=== PATIENT | female | born 1995 | race Caucasian/White ===

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

== ENCOUNTER 2017-03-23 21:36 | Emergency (ER) | payer OTHER ==
[2017-03-23] MEDS ORDERED: SODIUM CHLORIDE 0.9% 1,000 ML IV ONE (23:09)
[2017-03-23] MEDS ORDERED: ACETAMINOPHEN TAB 500 MG TAB PO STA (23:09)
[2017-03-23 23:30] LABS: Appearance,Urine Clear (Clear); Bilirubin,Urine Negative (Negative); Glucose,Urine (UA) Negative (Negative); Ketones,Urine Trace (Negative); Leukocyte Esterase,Urine Trace (Negative); Mucus,Urine Rare /hpf; Nitrite,Urine Negative (Negative); Particle Count 3200; Protein,Urine 1+ (Negative); RBC,Urine 1 /hpf (0-5); Specific Gravity,Urine 1.033 (1.001-1.035); Squamous Epithelial Cell,Urine 10 /hpf (0-4); UA Billing (MACRO vs. MICRO) MICRO; WBC,Urine 1 /hpf (0-5)
[2017-03-23 23:45] LABS: Basophils # (A) 0.1 k/uL (0-0.2); Basophils % (A) 1 %; CHCM 33.4; Eosinophils # (A) 0.4 k/uL (0-0.7); Eosinophils % (A) 5 %; HCT 38.4 % (34.0-46.0); HDW 2.37; HGB 12.9 gm/dL (11.4-16.0); Luc % (Auto) 2; Lymphocytes # (A) 2.5 k/uL (1.0-4.8); Lymphocytes % (A) 27 %; MCH 29.1 pg (25.0-35.0); MCHC 33.5 g/dL (31.0-37.0); MCV 87.1 fL (80.0-100.0); Monocytes # (A) 0.6 k/uL (0-1.0); Monocytes % (A) 7 %; Neutrophils # (A) 5.5 k/uL (1.3-7.7); Neutrophils % (A) 59 %; RBC 4.41 m/uL (3.80-5.40); RDW 14.2 % (11.5-15.5); WBC 9.3 k/uL (4.0-11.0); WBC (Perox) 8.46
[2017-03-23 23:52] LABS: HCG,Qualitative Serum Detected
[2017-03-23 23:54] LABS: Anion Gap 10 mmol/L; Blood Urea Nitrogen 9 mg/dL (7-17); Carbon Dioxide 24 mmol/L (22-30); Chloride 105 mmol/L (98-107); Glucose 83 mg/dL (74-99); Non-African American GFR(MDRD) >60 (>60 ml/min/1.73 sqM); Sodium 139 mmol/L (137-145)
--- NOTE | 2017-03-24 00:32 | ED ---
Abdominal Pain HPI - General Chief Complaint: Abdominal Pain Stated Complaint: 9 weeks /Pelvic pressure Source: patient Mode of arrival: ambulatory Limitations: no limitations - History of Present Illness Initial Comments: Patient is a 21 year old female presents for evaluation for lower abdominal pain. Past medical history as below. Patient states that she is roughly 79 weeks . Has been having sharp intermittent lower pelvic pain over the last day. Nothing makes it better or worse. No pain or burning with urination. Denies any vaginal bleeding or vaginal discharge. She is taken 7+ test at home all of which have been positive. Normal bowel movements. No blood in the urine or the stool. Denies any nausea or vomiting. Good appetite. This is an unplanned . She states that she's been wearing protection with intercourse. This is her fifth . She's had 3 miscarriages. One full-term child. Otherwise denies fever, chills, headache, changes of vision, URI symptoms, shortness breath, cough, chest pain. - Related Data Previous Rx's Medication Instructions Recorded Lvn-Hkan-Cmdku Acid 1 cap PO DAILY #90 cap 03/24/17 [-U Capsule (formulary)] Allergies Allergy/AdvReac Type Severity Reaction Status Date / Time azithromycin [From Zithromax] Allergy Swelling Verified 03/23/17 23:46 Bleach (Sodium Hypochlorite) Allergy Unknown Verified 03/23/17 23:46 cephalexin [From Keflex] Allergy Swelling Verified 03/23/17 23:46 fluconazole Allergy Swelling Verified 03/23/17 23:46 latex Allergy Rash/Hives Verified 03/23/17 23:46 nystatin Allergy Swelling Verified 03/23/17 23:46 Penicillins Allergy Swelling Verified 03/23/17 23:46 Review of Systems ROS Statement: Those systems with pertinent positive or pertinent negative responses have been documented in the HPI. ROS Other: All systems not noted in ROS Statement are negative. Past Medical History Past Medical History: Seizure Disorder Additional Past Medical History / Comment(s): SYNCOPE- LOW BLOOD PRESSURE, EPILEPSY History of Any Multi-Drug Resistant Organisms: None Reported Past Surgical History: Section Past Psychological History: No Psychological Hx Reported Smoking Status: Current some day smoker Past Alcohol Use History: Occasional Past Drug Use History: None Reported General Exam Limitations: no limitations General appearance: alert, in no apparent distress, other (No acute distress. Resting comfortably in the stretcher.) Head exam: Present: atraumatic, normocephalic, normal inspection Eye exam: Present: normal appearance, PERRL, EOMI. Absent: scleral icterus, conjunctival injection, periorbital swelling ENT exam: Present: normal exam, mucous membranes moist Neck exam: Present: normal inspection. Absent: tenderness, meningismus, lymphadenopathy Respiratory exam: Present: normal lung sounds bilaterally. Absent: respiratory distress, wheezes, rales, rhonchi, stridor Cardiovascular Exam: Present: regular rate, normal rhythm, normal heart sounds. Absent: systolic murmur, diastolic murmur, rubs, gallop, clicks GI/Abdominal exam: Present: soft, normal bowel sounds, other (Abdomen is soft and nontender. No peritoneal signs. No pain elicited with examination at all. Negative Campbell sign. Negative McBurney sign. No suprapubic tenderness.). Absent: distended, tenderness, guarding, rebound, rigid Extremities exam: Present: normal inspection, full ROM, normal capillary refill. Absent: tenderness, pedal edema, joint swelling, calf tenderness Back exam: Present: normal inspection Neurological exam: Present: alert, oriented X3, CN II-XII intact Psychiatric exam: Present: normal affect, normal mood Skin exam: Present: warm, dry, intact, normal color. Absent: rash Course Vital Signs 03/23/17 03/23/17 03/24/17 22:17 23:36 00:43 Temperature 98.1 F 98.2 F Pulse Rate 82 62 68 Respiratory 18 18 20 Rate Blood Pressure 130/63 137/58 132/66 O2 Sat by Pulse 97 98 99 Oximetry 03/24/17 01:29 Temperature Pulse Rate 67 Respiratory 18 Rate Blood Pressure 124/68 O2 Sat by Pulse 98 Oximetry Medical Decision Making - Medical Decision Making Patient is a 21-year-old presenting with lower pelvic pain. Positive test at home. We'll order basic labs with a beta hCG, pelvic ultrasound, IV fluids, Tylenol. 0045: Reevaluated the patient. Resting comfortably in stretcher. Pain improved after Tylenol. Patient was told by the environmental services technician that she is roughly 5 weeks . No other acute abnormalities. Awaiting for official read by radiology. Also waiting beta-hCG. No bacteria in the urine. 0115: Reviewed ultrasound. 5 week IUP identified. Awaiting for beta-hCG. 0135: HCG appropriate for dates. Discussed all the results with the patient. Tylenol as needed for pain. Plenty of fluids. We'll prescribe vitamins. Encourage close follow-up with her SENIOR ADMINISTRATIVE ASSISTANT. We'll provide ours in the event that she can follow-up in a timely fashion. Will need repeat hCG and bedside ultrasound in next couple of days. No alcohol/smoking/drug use. Discussed signs and symptoms on when to return to emergency department for further evaluation. Comfortable with discharge home and will follow-up. - Lab Data Result diagrams: 03/23/17 23:31 03/23/17 23:31 Lab Results 03/23/17 03/23/17 03/23/17 Range/Units 23:10 23:31 23:31 WBC (4.0-11.0) k/uL RBC (3.80-5.40) m/uL Hgb (11.4-16.0) gm/dL Hct (34.0-46.0) % MCV (80.0-100.0) fL MCH (25.0-35.0) pg MCHC (31.0-37.0) g/dL RDW (11.5-15.5) % Plt Count (150-450) k/uL Neutrophils % % Lymphocytes % % Monocytes % % Eosinophils % % Basophils % % Neutrophils # (1.3-7.7) k/uL Lymphocytes # (1.0-4.8) k/uL Monocytes # (0-1.0) k/uL Eosinophils # (0-0.7) k/uL Basophils # (0-0.2) k/uL Sodium 139 (137-145) mmol/L Potassium 4.0 (3.5-5.1) mmol/L Chloride 105 (98-107) mmol/L Carbon Dioxide 24 (22-30) mmol/L Anion Gap 10 mmol/L BUN 9 (7-17) mg/dL Creatinine 0.60 (0.52-1.04) mg/dL Est GFR (MDRD) Af Amer >60 (>60 ml/min/1.73 sqM) Est GFR (MDRD) Non-Af >60 (>60 ml/min/1.73 sqM) Glucose 83 (74-99) mg/dL Calcium 9.0 (8.4-10.2) mg/dL HCG, Qual Detected HCG, Quant mIU/mL Urine Color Yellow Urine Appearance Clear (Clear) Urine pH 7.0 (5.0-8.0) Ur Specific [place] 1.033 (1.001-1.035) Urine Protein 1+ H (Negative) Urine Glucose (UA) Negative (Negative) Urine Ketones Trace H (Negative) Urine Blood Negative (Negative) Urine Nitrite Negative (Negative) Urine Bilirubin Negative (Negative) Urine Urobilinogen 4.0 (<2.0) mg/dL Ur Leukocyte Esterase Trace H (Negative) Urine RBC 1 (0-5) /hpf Urine WBC 1 (0-5) /hpf Ur Squamous Epith Cells 10 H (0-4) /hpf Urine Mucus Rare H (None) /hpf Blood Type O Positive Blood Type Recheck No Antibody Screen NEGATIVE Spec Expiration Date 03/26/2017 - 233003/23/17 03/23/17 Range/Units 23:31 23:31 WBC 9.3 (4.0-11.0) k/uL RBC 4.41 (3.80-5.40) m/uL Hgb 12.9 (11.4-16.0) gm/dL Hct 38.4 (34.0-46.0) % MCV 87.1 (80.0-100.0) fL MCH 29.1 (25.0-35.0) pg MCHC 33.5 (31.0-37.0) g/dL RDW 14.2 (11.5-15.5) % Plt Count 278 (150-450) k/uL Neutrophils % 59 % Lymphocytes % 27 % Monocytes % 7 % Eosinophils % 5 % Basophils % 1 % Neutrophils # 5.5 (1.3-7.7) k/uL Lymphocytes # 2.5 (1.0-4.8) k/uL Monocytes # 0.6 (0-1.0) k/uL Eosinophils # 0.4 (0-0.7) k/uL Basophils # 0.1 (0-0.2) k/uL Sodium (137-145) mmol/L Potassium (3.5-5.1) mmol/L Chloride (98-107) mmol/L Carbon Dioxide (22-30) mmol/L Anion Gap mmol/L BUN (7-17) mg/dL Creatinine (0.52-1.04) mg/dL Est GFR (MDRD) Af Amer (>60 ml/min/1.73 sqM) Est GFR (MDRD) Non-Af (>60 ml/min/1.73 sqM) Glucose (74-99) mg/dL Calcium (8.4-10.2) mg/dL HCG, Qual HCG, Quant 55659.7 mIU/mL Urine Color Urine Appearance (Clear) Urine pH (5.0-8.0) Ur Specific [place] (1.001-1.035) Urine Protein (Negative) Urine Glucose (UA) (Negative) Urine Ketones (Negative) Urine Blood (Negative) Urine Nitrite (Negative) Urine Bilirubin (Negative) Urine Urobilinogen (<2.0) mg/dL Ur Leukocyte Esterase (Negative) Urine RBC (0-5) /hpf Urine WBC (0-5) /hpf Ur Squamous Epith Cells (0-4) /hpf Urine Mucus (None) /hpf Blood Type Blood Type Recheck Antibody Screen Spec Expiration Date Disposition Clinical Impression: Disposition: HOME SELF-CARE Condition: Good Instructions: (ED) Prescriptions: Noj-Mxlo-Qsqbd Acid [-U Capsule (formulary)] 1 cap PO DAILY # 90 cap Referrals: Les Bartholomew MD [Primary Care Provider] - 1-2 days Brittnee Partida DO [Doctor of Osteopathic Medicine] - 1-2 days
[2017-03-24 00:43] VITALS: TEMP 98.2
--- NOTE | 2017-03-24 01:12 | US ---
Ultrasound Pelvic/OB INDICATION: pain COMPARISON: none TECHNIQUE: Real-time sonographic evaluation of the female pelvis obtained using grayscale and color flow. FINDINGS: On transabdominal imaging, the uterus measures 8.3 x 5.4 x 6.7 cm. A gestational sac is identified at the fundus. A yolk sac is identified. There is a 1.5 cm hypoechoic focus adjacent to the gestational sac. Suspected pole crown-rump length measures 0.24 cm corresponding to estimated gestational age by this ultrasound of 5 weeks, 5 days. heart rate measures approximately 93 beats per minute. The cervix appears closed. The right ovary measures 3 x 1.8 x 2 cm. Echogenicity in the right ovary measuring approximately 1.5 cm likely represents a corpus luteum. The left ovary measures 2.1 x 1.3 x 2 cm. The ovaries demonstrate normal grayscale and color flow. No free fluid is identified. IMPRESSION: 1. Intrauterine gestation sac with yolk sac identified estimated to be approximately 5 weeks 5 days by ultrasound. heart rate measures approximately 93 beats per minute. Due to the small size of the pole, there are some limitations in the imaging and a short-term imaging followup is recommended. 2. There is a 1.5 cm hypoechoic focus adjacent to the gestational sac which may be a subchorionic bleed..
[2017-03-24 01:31] VITALS: BP 124/68; PULSE 67; RESP 18
== END 2017-03-24 01:46 | disposition home or self-care (01) ==
LOC: EC 21:36
DX: O26.891 Other specified pregnancy related conditions, first trimester (principal); O99.331 Smoking (tobacco) complicating pregnancy, first trimester; R10.2 Pelvic and perineal pain; F17.200 Nicotine dependence, unspecified, uncomplicated; Z3A.01 Less than 8 weeks gestation of pregnancy; Z88.0 Allergy status to penicillin; Z91.040 Latex allergy status; Z88.1 Allergy status to other antibiotic agents; Z88.8 Allergy status to other drugs, medicaments and biological substances
CPT/HCPCS: 36415; 76801; 76817; 80048; 81001; 84702; 84703; 85025; 86850; 86900; 86901; 99284

== ENCOUNTER 2017-06-14 21:50 | Emergency (ER) | payer OTHER ==
[2017-06-14] MEDS ORDERED: levETIRAcetam 500 MG TAB PO STA (22:13)
--- NOTE | 2017-06-14 22:15 | ED ---
General Adult HPI - General Chief complaint: Seizure Stated complaint: syncope/17 wks preg Time Seen by Provider: 06/14/17 21:55 Source: patient, RN notes reviewed Mode of arrival: ambulatory Limitations: no limitations - History of Present Illness Initial comments: This is a 22-year-old female presents emergency department 17 weeks . Patient states she has a history of seizures. Patient states she's normally on Keppra but for 1 month she has not been taking her Keppra because she has not gotten a refill from her neurologist because they have discontinued seeing her. Patient states she continues to drive to work even though she knows she shouldn't be. Patient states that she's been getting an aura today and is concerned that she might have a seizure. Patient states she does not believe she has yet to have a seizure. Patient states she's had a headache for about a month. Patient states is no numbness or weakness. Patient denies any chest pain difficulty breathing or shortness of breath per patient denies any abdominal pain patient denies any vaginal discharge or bleeding. Patient denies any nausea vomiting diarrhea. - Related Data Previous Rx's Medication Instructions Recorded Lfv-Pnsv-Vwkyp Acid 1 cap PO DAILY #90 cap 03/24/17 [-U Capsule (formulary)] levETIRAcetam [Keppra] 1,000 mg PO Q12HR #14 tab 06/14/17 Allergies Allergy/AdvReac Type Severity Reaction Status Date / Time azithromycin [From Zithromax] Allergy Swelling Verified 06/14/17 22:17 Bleach (Sodium Hypochlorite) Allergy Unknown Verified 06/14/17 22:17 cephalexin [From Keflex] Allergy Swelling Verified 06/14/17 22:17 fluconazole Allergy Swelling Verified 06/14/17 22:17 latex Allergy Rash/Hives Verified 06/14/17 22:17 nystatin Allergy Swelling Verified 06/14/17 22:17 Penicillins Allergy Swelling Verified 06/14/17 22:17 Review of Systems ROS Statement: Those systems with pertinent positive or pertinent negative responses have been documented in the HPI. ROS Other: All systems not noted in ROS Statement are negative. Past Medical History Past Medical History: Seizure Disorder Additional Past Medical History / Comment(s): SYNCOPE- LOW BLOOD PRESSURE, EPILEPSY History of Any Multi-Drug Resistant Organisms: None Reported Past Surgical History: Section Past Psychological History: No Psychological Hx Reported Smoking Status: Former smoker Past Alcohol Use History: Occasional Past Drug Use History: None Reported General Exam - General Exam Comments Initial Comments: GENERAL: Patient is well-developed and well-nourished. Patient is nontoxic and well- hydrated and is in no acute distress. ENT: Neck is soft and supple. No significant lymphadenopathy is noted. Oropharynx is clear. Moist mucous membranes. Neck has full range of motion without eliciting any pain. EYES: The sclera were anicteric and conjunctiva were pink and moist. Extraocular movements were intact and pupils were equal round and reactive to light. Eyelids were unremarkable. PULMONARY: Unlabored respirations. Good breath sounds bilaterally. No audible rales rhonchi or wheezing was noted. CARDIOVASCULAR: There is a regular rate and rhythm without any murmurs gallops or rubs. ABDOMEN: Soft and nontender with normal bowel sounds. No palpable organomegaly was noted. There is no palpable pulsatile mass. SKIN: Skin is clear with no lesions or rashes and otherwise unremarkable. NEUROLOGIC: Patient is alert and oriented x3. Cranial nerves II through XII are grossly intact. Motor and sensory are also intact. Normal speech, volume and content. Symmetrical smile. MUSCULOSKELETAL: Normal extremities with adequate strength and full range of motion. No lower extremity swelling or edema. No calf tenderness. LYMPHATICS: No significant lymphadenopathy is noted PSYCHIATRIC: Normal psychiatric evaluation. Limitations: no limitations Course Vital Signs 06/14/17 21:53 Temperature 98.9 F Pulse Rate 78 Respiratory 20 Rate Blood Pressure 141/68 O2 Sat by Pulse 98 Oximetry Medical Decision Making - Medical Decision Making I spoke with Dr. Bartholomew and he wanted me to give the patient a prescription for Keppra for one week so that she has time to follow-up with him. Patient was given Keppra in the emergency department. - Lab Data Result diagrams: 06/14/17 22:22 06/14/17 22:22 Lab Results 06/14/17 06/14/17 06/14/17 Range/Units 22:22 22:22 22:41 WBC 9.6 (4.0-11.0) k/uL RBC 4.18 (3.80-5.40) m/uL Hgb 12.3 (11.4-16.0) gm/dL Hct 38.0 (34.0-46.0) % MCV 91.0 (80.0-100.0) fL MCH 29.5 (25.0-35.0) pg MCHC 32.4 (31.0-37.0) g/dL RDW 15.0 (11.5-15.5) % Plt Count 243 (150-450) k/uL Neutrophils % 72 % Lymphocytes % 19 % Monocytes % 5 % Eosinophils % 3 % Basophils % 1 % Neutrophils # 6.9 (1.3-7.7) k/uL Lymphocytes # 1.8 (1.0-4.8) k/uL Monocytes # 0.5 (0-1.0) k/uL Eosinophils # 0.3 (0-0.7) k/uL Basophils # 0.0 (0-0.2) k/uL Sodium 135 L (137-145) mmol/L Potassium 3.8 (3.5-5.1) mmol/L Chloride 106 (98-107) mmol/L Carbon Dioxide 19 L (22-30) mmol/L Anion Gap 10 mmol/L BUN 5 L (7-17) mg/dL Creatinine 0.50 L (0.52-1.04) mg/dL Est GFR (MDRD) Af Amer >60 (>60 ml/min/1.73 sqM) Est GFR (MDRD) Non-Af >60 (>60 ml/min/1.73 sqM) Glucose 113 H (74-99) mg/dL Calcium 9.0 (8.4-10.2) mg/dL Total Bilirubin 0.1 L (0.2-1.3) mg/dL AST 13 L (14-36) U/L ALT 22 (9-52) U/L Alkaline Phosphatase 57 (38-126) U/L Total Protein 5.8 L (6.3-8.2) g/dL Albumin 3.2 L (3.5-5.0) g/dL Urine Color Yellow Urine Appearance Turbid H (Clear) Urine pH 6.5 (5.0-8.0) Ur Specific [place] 1.015 (1.001-1.035) Urine Protein Negative (Negative) Urine Glucose (UA) Negative (Negative) Urine Ketones Negative (Negative) Urine Blood Negative (Negative) Urine Nitrite Negative (Negative) Urine Bilirubin Negative (Negative) Urine Urobilinogen <2.0 (<2.0) mg/dL Ur Leukocyte Esterase Trace H (Negative) Ur Squamous Epith Cells 3 (0-4) /hpf Amorphous Sediment Rare H (None) /hpf Urine Mucus Rare H (None) /hpf Disposition Clinical Impression: Auras, Noncompliance with medication regimen Instructions: Recurrent Seizures in Adults (ED) Additional Instructions: Patient is to follow up with Dr. Bartholomew within the week. Prescriptions: levETIRAcetam [Keppra] 1,000 mg PO Q12HR #14 tab Referrals: Les Bartholomew MD [Primary Care Provider] - 1-2 days Time of Disposition: 23:12
[2017-06-14 22:36] LABS: Basophils % (A) 1 %; CH 30.6; CHCM 33.8; Eosinophils # (A) 0.3 k/uL (0-0.7); Eosinophils % (A) 3 %; HDW 2.31; HGB 12.3 gm/dL (11.4-16.0); Luc # (Auto) 0.11; Luc % (Auto) 1; Lymphocytes # (A) 1.8 k/uL (1.0-4.8); Lymphocytes % (A) 19 %; MCH 29.5 pg (25.0-35.0); MCHC 32.4 g/dL (31.0-37.0); Mean Platelet Volume 7.6; Monocytes # (A) 0.5 k/uL (0-1.0); Monocytes % (A) 5 %; Neutrophils # (A) 6.9 k/uL (1.3-7.7); Neutrophils % (A) 72 %; RBC 4.18 m/uL (3.80-5.40); WBC 9.6 k/uL (4.0-11.0); WBC (Perox) 10.35
[2017-06-14 22:48] LABS: ALT 22 U/L (9-52); AST 13 U/L (14-36); Alkaline Phosphatase 57 U/L (38-126); Anion Gap 10 mmol/L; Blood Urea Nitrogen 5 mg/dL (7-17); Carbon Dioxide 19 mmol/L (22-30); Chloride 106 mmol/L (98-107); Glucose 113 mg/dL (74-99); Non-African American GFR(MDRD) >60 (>60 ml/min/1.73 sqM); Potassium 3.8 mmol/L (3.5-5.1); Sodium 135 mmol/L (137-145); Total Bilirubin 0.1 mg/dL (0.2-1.3); Total Protein 5.8 g/dL (6.3-8.2)
[2017-06-14 22:59] LABS: Amorphous Sediment,Urine Rare /hpf; Appearance,Urine Turbid (Clear); Bilirubin,Urine Negative (Negative); Glucose,Urine (UA) Negative (Negative); Ketones,Urine Negative (Negative); Leukocyte Esterase,Urine Trace (Negative); Mucus,Urine Rare /hpf; Nitrite,Urine Negative (Negative); PH, Urine 6.5 (5.0-8.0); Particle Count 17243; Protein,Urine Negative (Negative); Specific Gravity,Urine 1.015 (1.001-1.035); Squamous Epithelial Cell,Urine 3 /hpf (0-4); UA Billing (MACRO vs. MICRO) MICRO; Urobilinogen,Urine <2.0 mg/dL (<2.0)
[2017-06-14 23:27] VITALS: BP 127/61; PULSE 71; RESP 18; TEMP 98.3
== END 2017-06-14 23:28 | disposition home or self-care (01) ==
LOC: EC 21:50
DX: O26.892 Other specified pregnancy related conditions, second trimester (principal); R29.818 Other symptoms and signs involving the nervous system; Z91.14 Patient's other noncompliance with medication regimen; Z86.69 Personal history of other diseases of the nervous system and sense organs; Z87.891 Personal history of nicotine dependence; Z88.1 Allergy status to other antibiotic agents; Z88.0 Allergy status to penicillin; Z88.8 Allergy status to other drugs, medicaments and biological substances; Z91.040 Latex allergy status; Z91.048 Other nonmedicinal substance allergy status; Z3A.17 17 weeks gestation of pregnancy
CPT/HCPCS: 36415; 80053; 80177; 81001; 85025; 99284

== ENCOUNTER 2017-06-15 11:17 | Inpatient (IN) | payer OTHER ==
[2017-06-15] MEDS ORDERED: ACETAMINOPHEN TAB 325 MG TAB PO STA (11:29)
--- NOTE | 2017-06-15 11:35 | ED ---
Seizure HPI - General Stated Complaint: Seizure Time Seen by Provider: 06/15/17 11:18 Source: patient, EMS Mode of arrival: EMS Limitations: no limitations - History of Present Illness Initial Comments: This is a 22-year-old female to history of epilepsy who is supposed to be on Keppra 1000 mg twice a day who presents emergency department for a seizure. The patient was seen her yesterday because she was feeling like she had an aura. She was given a dose of Keppra here and a prescription for Keppra however she did not fill this. She went home. She woke up around 10:30 and was sitting on the couch when all of a sudden she started having a generalized tonic-clonic seizure. The mother did witness the seizure. She called EMS immediately when it started and she stated that she was continuing to have seizure activity when EMS got there over 5 minutes later. She believes that the seizure activity was going on the entire time more than 5 minutes. EMS stated that when they arrived she was postictal and somnolent. During the trip to the hospital patient went back to her neurologic baseline. She is currently a Seaman 4. The patient states that she has been off of her Keppra for almost a month because she does not have Medicaid or insurance to pay for it. She has not seen a neurologist in quite some time because she was discharged from [facility] of neurology and is currently on a waiting list to be seen by another neurologist. She is currently 18 weeks [address] with [address] Nathan out [facility] for [facility]. She states that she does have a history of eclampsia with her previous 2 pregnancies and had to be delivered early. She denies any dysuria or hematuria. No vaginal bleeding or discharge. She admits to some right-sided neck discomfort that she suspects is from the seizure. Also has a generalized headache which is typical for her after the seizures. She denies any cough or shortness of breath. No numbness, tingling, weakness in her extremities. No other complaints. - Related Data Previous Rx's Medication Instructions Recorded Hyr-Sqae-Fzscl Acid 1 cap PO DAILY #90 cap 03/24/17 [-U Capsule (formulary)] levETIRAcetam [Keppra] 1,000 mg PO Q12HR #14 tab 06/14/17 Allergies Allergy/AdvReac Type Severity Reaction Status Date / Time azithromycin [From Zithromax] Allergy Swelling Verified 06/15/17 11:59 Bleach (Sodium Hypochlorite) Allergy Unknown Verified 06/15/17 11:59 cephalexin [From Keflex] Allergy Swelling Verified 06/15/17 11:59 fluconazole Allergy Swelling Verified 06/15/17 11:59 latex Allergy Rash/Hives Verified 06/15/17 11:59 nystatin Allergy Swelling Verified 06/15/17 11:59 Penicillins Allergy Swelling Verified 06/15/17 11:59 Review of Systems ROS Statement: Those systems with pertinent positive or pertinent negative responses have been documented in the HPI. ROS Other: All systems not noted in ROS Statement are negative. Past Medical History Past Medical History: Seizure Disorder Additional Past Medical History / Comment(s): SYNCOPE- LOW BLOOD PRESSURE, EPILEPSY History of Any Multi-Drug Resistant Organisms: None Reported Past Surgical History: Section Past Psychological History: No Psychological Hx Reported Smoking Status: Former smoker Past Alcohol Use History: Occasional Past Drug Use History: None Reported General Exam - General Exam Comments Initial Comments: Constitutional: Awake alert Appears comfortable Head: Normocephalic atraumatic Eyes: no conjunctival injection No scleral icterus EOMI, pupils are 4 mm and reactive bilaterally Neck: No JVD Supple Heart: Regular rate rhythm normal S1-S2 no murmurs Lungs: Clear to auscultation bilaterally No wheezing No rales Abdomen: Soft nondistended nontender Extremities: Non edematous DP pulses intact Radial pulses intact Neuro: A&Ox3 cranial nerves II through XII are grossly intact, 5 out of 5 strength in upper and lower extremities bilaterally, no dysmetria with finger- nose and heel to myers testing No focal neurologic deficits Psych: Appropriate mood and affect Limitations: no limitations Course Vital Signs 06/15/17 06/15/17 11:19 12:40 Temperature 98.7 F Pulse Rate 72 104 H Respiratory 20 18 Rate Blood Pressure 120/61 135/68 O2 Sat by Pulse 100 100 Oximetry - Reevaluation(s) Reevaluation #1: 06/15/17 12:42 EKG showing normal sinus rhythm with a rate of 65. No abnormal ST segment changes or T-wave inversions. QTC is 395. Other intervals normal. No ectopy. Medical Decision Making - Medical Decision Making This is a 22-year-old female to history of seizures who has not been compliant with her Keppra who presents emergency department for a greater than 5 minute seizure. While in the emergency department the patient had an additional 2 seizures. This was after she got 1 g of Keppra. She was given another 2 mg of Ativan and her seizure stopped. Due to the patient multiple seizures today and the one being greater than 5 minutes she is to be evaluated in the hospital for status epilepticus. I spoke with Dr. Bartholomew who accepts the admission. The patient will go to [facility] and have OB and neurology see her. The patient was started on Keppra and will be kept under seizure precautions with neurologic assessment before hours. The patient and family were updated and agree. I did touch base with the patient's [employer], Dr. Nathan, who agreed with management as far. - Lab Data Result diagrams: 06/15/17 12:00 06/15/17 12:00 Lab Results 06/15/17 06/15/17 06/15/17 Range/Units 12:00 12:00 12:09 WBC 7.6 (4.0-11.0) k/uL RBC 4.14 (3.80-5.40) m/uL Hgb 12.4 (11.4-16.0) gm/dL Hct 38.1 (34.0-46.0) % MCV 92.2 (80.0-100.0) fL MCH 30.0 (25.0-35.0) pg MCHC 32.6 (31.0-37.0) g/dL RDW 14.0 (11.5-15.5) % Plt Count 238 (150-450) k/uL Neutrophils % 73 % Lymphocytes % 19 % Monocytes % 4 % Eosinophils % 4 % Basophils % 0 % Neutrophils # 5.5 (1.3-7.7) k/uL Lymphocytes # 1.4 (1.0-4.8) k/uL Monocytes # 0.3 (0-1.0) k/uL Eosinophils # 0.3 (0-0.7) k/uL Basophils # 0.0 (0-0.2) k/uL Sodium 137 (137-145) mmol/L Potassium 4.2 (3.5-5.1) mmol/L Chloride 108 H (98-107) mmol/L Carbon Dioxide 21 L (22-30) mmol/L Anion Gap 8 mmol/L BUN 4 L (7-17) mg/dL Creatinine 0.49 L (0.52-1.04) mg/dL Est GFR (MDRD) Af Amer >60 (>60 ml/min/1.73 sqM) Est GFR (MDRD) Non-Af >60 (>60 ml/min/1.73 sqM) Glucose 90 (74-99) mg/dL Calcium 8.5 (8.4-10.2) mg/dL Magnesium 1.5 L (1.6-2.3) mg/dL Total Bilirubin 0.2 (0.2-1.3) mg/dL AST 10 L (14-36) U/L ALT 13 (9-52) U/L Alkaline Phosphatase 52 (38-126) U/L Total Protein 5.4 L (6.3-8.2) g/dL Albumin 2.8 L (3.5-5.0) g/dL Urine Color Yellow Urine Appearance Cloudy H (Clear) Urine pH 7.5 (5.0-8.0) Ur Specific Dewey 1.014 (1.001-1.035) Urine Protein Negative (Negative) Urine Glucose (UA) Negative (Negative) Urine Ketones Negative (Negative) Urine Blood Negative (Negative) Urine Nitrite Negative (Negative) Urine Bilirubin Negative (Negative) Urine Urobilinogen <2.0 (<2.0) mg/dL Ur Leukocyte Esterase Negative (Negative) Ur Squamous Epith Cells 1 (0-4) /hpf Amorphous Sediment Few H (None) /hpf Urine Mucus Rare H (None) /hpf Salicylates <1.0 mg/dL Urine Opiates Screen Not Detected (NotDetected) Ur Oxycodone Screen Not Detected (NotDetected) Urine Methadone Screen Not Detected (NotDetected) Ur Propoxyphene Screen Not Detected (NotDetected) Acetaminophen <10.0 ug/mL Ur Barbiturates Screen Not Detected (NotDetected) U Tricyclic Antidepress Not Detected (NotDetected) Ur Phencyclidine Scrn Not Detected (NotDetected) Ur Amphetamines Screen Not Detected (NotDetected) U Methamphetamines Scrn Not Detected (NotDetected) U Benzodiazepines Scrn Not Detected (NotDetected) Urine Cocaine Screen Not Detected (NotDetected) U Marijuana (THC) Screen Not Detected (NotDetected) Disposition Clinical Impression: Status epilepticus Disposition: ADMITTED IP TO THIS HOSP Condition: Serious Referrals: Les Bartholomew MD [Primary Care Provider] - 1-2 days
[2017-06-15] MEDS ORDERED: levETIRAcetam IV 1,000 MG in SALINE 1 100ML.BAG IVPB ONE (11:45)
[2017-06-15] MEDS: SODIUM CHLORIDE 0.9% 1,000 ML IV SCH ×2 (11:49→21:56)
[2017-06-15 12:16] LABS: Basophils % (A) 0 %; CH 29.6; CHCM 32.3; Eosinophils # (A) 0.3 k/uL (0-0.7); Eosinophils % (A) 4 %; HCT 38.1 % (34.0-46.0); HDW 2.31; HGB 12.4 gm/dL (11.4-16.0); Luc # (Auto) 0.09; Luc % (Auto) 1; Lymphocytes # (A) 1.4 k/uL (1.0-4.8); Lymphocytes % (A) 19 %; MCHC 32.6 g/dL (31.0-37.0); MCV 92.2 fL (80.0-100.0); Monocytes # (A) 0.3 k/uL (0-1.0); Monocytes % (A) 4 %; Neutrophils # (A) 5.5 k/uL (1.3-7.7); Neutrophils % (A) 73 %; RBC 4.14 m/uL (3.80-5.40); WBC 7.6 k/uL (4.0-11.0); WBC (Perox) 8.01
[2017-06-15 12:29] LABS: ALT 13 U/L (9-52); AST 10 U/L (14-36); Acetaminophen <10.0 ug/mL; Alkaline Phosphatase 52 U/L (38-126); Anion Gap 8 mmol/L; Blood Urea Nitrogen 4 mg/dL (7-17); Calcium 8.5 mg/dL (8.4-10.2); Carbon Dioxide 21 mmol/L (22-30); Chloride 108 mmol/L (98-107); Glucose 90 mg/dL (74-99); Magnesium 1.5 mg/dL (1.6-2.3); Non-African American GFR(MDRD) >60 (>60 ml/min/1.73 sqM); Potassium 4.2 mmol/L (3.5-5.1); Salicylate <1.0 mg/dL; Sodium 137 mmol/L (137-145); Total Bilirubin 0.2 mg/dL (0.2-1.3); Total Protein 5.4 g/dL (6.3-8.2)
[2017-06-15 12:29] LABS: Amorphous Sediment,Urine Few /hpf; Appearance,Urine Cloudy (Clear); Bilirubin,Urine Negative (Negative); Glucose,Urine (UA) Negative (Negative); Ketones,Urine Negative (Negative); Leukocyte Esterase,Urine Negative (Negative); Mucus,Urine Rare /hpf; Nitrite,Urine Negative (Negative); PH, Urine 7.5 (5.0-8.0); Particle Count 11290; Protein,Urine Negative (Negative); Specific Gravity,Urine 1.014 (1.001-1.035); Squamous Epithelial Cell,Urine 1 /hpf (0-4); UA Billing (MACRO vs. MICRO) MICRO; Urobilinogen,Urine <2.0 mg/dL (<2.0)
[2017-06-15] MEDS: LORazepam 2 MG/ML INJ IV STA ×2 (12:38→17:37)
--- NOTE | 2017-06-15 12:52 | XR ---
EXAMINATION TYPE: XR cervical spine limited DATE OF EXAM: 06/15/2017 TECHNIQUE: Frontal and lateral views of the cervical spine are obtained. HISTORY: Pain COMPARISON: None FINDINGS: There is straightening of the usual cervical lordosis. There is retrolisthesis of C5 with respect to C6. No locked or perched facets are seen. Cervical spine is visualized in its entirety fro m C1 thru the top of T1 level, it is satisfactory in alignment without evidence of acute fracture or dislocation. The pre-vertebral soft tissue appears within normal limits. The C1-C2 articulation is within normal limits on the open mouth view. The oblique images are within normal limits. IMPRESSION: 1. No acute fracture or dislocation is seen in the cervical spine. 2. Retrolisthesis of C5 on C6 with no evidence of perched or locked facets. 3. Straightening of the usual cervical lordosis that may relate to muscular spasm or patient position ing.
[2017-06-15] MEDS ORDERED: NALOXONE 0.4 MG/ML 1 ML VIAL IV PRN (13:13)
[2017-06-15] MEDS ORDERED: ACETAMINOPHEN TAB 325 MG TAB PO PRN (13:13)
[2017-06-15] MEDS: MAGNESIUM SULFATE-D5W PMX 1 GM in DEXTROSE/WATER 1 100ML.BAG IVPB SCH ×3 (13:14→18:00)
--- NOTE | 2017-06-15 16:24 | P.OBCN ---
History of Present Illness Consult date: 06/15/17 Requesting physician: Les Bartholomew Chief complaint: Seizures, 18 weeks History of present illness: This is a 22-year-old 4 para 2011 woman who reports being approximately 18 weeks . She has a history of epilepsy and was admitted with status epilepticus this morning. She reports having aura yesterday evening and was seen in the emergency room. She was sent home with a prescription for Keppra. She did not take this and had multiple seizures this morning. She was brought into the emergency room and was admitted. She says she has having some light pink vaginal spotting and cramping for the last 3 days. Patient states "I am not staying at this hospital. I am being transferred. [facility] kills people. I refuse to stay the night here." She reports seizures every 1-2 months on Keppra 1000 mg twice daily. Most recent was delivered in January 2017 by emergency due to E clamps. She had a vaginal delivery in 2014 also complicated by seizure disorder. She had a spontaneous miscarriage in 2015. Due to the patient's strong statements at this point I did not further examine the patient. Review of Systems All systems: negative Past Medical History Past Medical History: Seizure Disorder Additional Past Medical History / Comment(s): SYNCOPE- LOW BLOOD PRESSURE, EPILEPSY History of Any Multi-Drug Resistant Organisms: None Reported Past Surgical History: Section Past Anesthesia/Blood Transfusion Reactions: No Reported Reaction Past Psychological History: No Psychological Hx Reported Additional Psychological History / Comment(s): Pt resides with her 2 daughters, ages 2 yrs and 6 months. She works for [employer]. She is independent. Smoking Status: Former smoker Past Alcohol Use History: Occasional Additional Past Alcohol Use History / Comment(s): Pt started smoking in 2009 and has been an off and on smoker. She quit smoking again about 8 months ago. Past Drug Use History: None Reported - Past Family History Father Family Medical History: No Reported History Mother Family Medical History: No Reported History Medications and Allergies Home Medications Medication Instructions Recorded Confirmed Type Chf-Aezd-Jtvcq Acid 1 cap PO DAILY #90 cap 03/24/17 06/15/17 Rx [-U Capsule (formulary)] levETIRAcetam [Keppra] 1,000 mg PO Q12HR #14 tab 06/14/17 06/15/17 Rx Allergies Allergy/AdvReac Type Severity Reaction Status Date / Time azithromycin [From Zithromax] Allergy Swelling Verified 06/15/17 11:59 Bleach (Sodium Hypochlorite) Allergy Itching Verified 06/15/17 14:33 cephalexin [From Keflex] Allergy Swelling Verified 06/15/17 11:59 fluconazole Allergy Swelling Verified 06/15/17 11:59 latex Allergy Anaphylaxis Verified 06/15/17 14:33 nystatin Allergy Swelling Verified 06/15/17 11:59 Penicillins Allergy Anaphylaxis Verified 06/15/17 14:33 carrots Allergy Anaphylaxis Uncoded 06/15/17 14:33 drinking milk Allergy Nausea & Uncoded 06/15/17 14:33 Vomiting & Diarrhea raw tomatoes Allergy Rash/Hives Uncoded 06/15/17 14:33 Exam - Vital Signs Vital signs: Vital Signs Temp Pulse Pulse Resp BP BP Pulse Ox 06/15/17 14:15 97.5 F L 65 20 117/60 100 06/15/17 13:18 98.4 F 65 18 121/63 100 06/15/17 12:40 104 H 18 135/68 100 06/15/17 11:19 98.7 F 72 20 120/61 100 Intake and Output 06/15/17 06/15/17 06/15/17 06:59 14:59 22:59 Other: Weight 180 kg Patient Weight 06/16/17 06:59 Weight 180 kg Comfortable appearing female in no evident distress. No further physical exam is performed. Results Result Diagrams: 06/15/17 12:00 06/15/17 12:00 Abnormal Lab Results - Last 24 Hours (Table) 06/15/17 06/15/17 Range/Units 12:00 12:09 Chloride 108 H (98-107) mmol/L Carbon Dioxide 21 L (22-30) mmol/L BUN 4 L (7-17) mg/dL Creatinine 0.49 L (0.52-1.04) mg/dL Magnesium 1.5 L (1.6-2.3) mg/dL AST 10 L (14-36) U/L Total Protein 5.4 L (6.3-8.2) g/dL Albumin 2.8 L (3.5-5.0) g/dL Urine Appearance Cloudy H (Clear) Amorphous Sediment Few H (None) /hpf Urine Mucus Rare H (None) /hpf Assessment and Plan (1) 17 weeks gestation of Status: Acute (2) Status epilepticus Status: Acute Plan: This is a 22-year-old 4 para 2012 woman who reports being approximately 17-18 weeks who is admitted with status epilepticus. The patient strongly stated to me that she is not staying in this hospital and is demanding transfer of care. I will therefore only state my recommendations would be to get a pelvic ultrasound secondary to the patient's report of vaginal spotting. She should have her Keppra levels checked to make sure she is therapeutic as clearance of this medication significantly increases in . Subtherapeutic levels likely lead to her seizure activity today. She should be followed closely by maternal- medicine specialist for the duration of the .
[2017-06-15] MEDS ORDERED: levETIRAcetam IV 1,000 MG in SALINE 1 100ML.BAG IVPB SCH (21:00)
[2017-06-15] MEDS ORDERED: levETIRAcetam 500 MG TAB PO SCH (21:00)
[2017-06-15] MEDS: LORazepam 2 MG/ML INJ IV PRN (23:30)
[2017-06-15] MEDS ORDERED: LACOSAMIDE IV 100 MG in SODIUM CHLORIDE 0.9% 50 ML IVPB SCH (23:57)
[2017-06-16] MEDS: LORazepam 2 MG/ML INJ IV PRN (00:20)
[2017-06-16] MEDS ORDERED: LACOSAMIDE IV 100 MG in SODIUM CHLORIDE 0.9% 50 ML IVPB SCH ×2 (00:30→09:00)
[2017-06-16 01:11] LABS: Glucose,Whole Blood 92 mg/dL (75-99)
[2017-06-16 01:20] LABS: Basophils % (A) 0 %; CH 29.4; CHCM 32.6; Eosinophils # (A) 0.3 k/uL (0-0.7); Eosinophils % (A) 4 %; HCT 36.3 % (34.0-46.0); HDW 2.31; HGB 11.9 gm/dL (11.4-16.0); Luc # (Auto) 0.14; Luc % (Auto) 2; Lymphocytes # (A) 1.8 k/uL (1.0-4.8); Lymphocytes % (A) 22 %; MCH 29.7 pg (25.0-35.0); MCHC 32.7 g/dL (31.0-37.0); MCV 90.6 fL (80.0-100.0); Monocytes # (A) 0.4 k/uL (0-1.0); Monocytes % (A) 5 %; Neutrophils # (A) 5.6 k/uL (1.3-7.7); Neutrophils % (A) 68 %; RDW 13.8 % (11.5-15.5); WBC 8.2 k/uL (4.0-11.0); WBC (Perox) 8.37
[2017-06-16 01:33] LABS: ALT 24 U/L (9-52); AST 16 U/L (14-36); Alkaline Phosphatase 50 U/L (38-126); Anion Gap 6 mmol/L; Blood Urea Nitrogen 4 mg/dL (7-17); Calcium 8.3 mg/dL (8.4-10.2); Carbon Dioxide 18 mmol/L (22-30); Chloride 111 mmol/L (98-107); Glucose 90 mg/dL (74-99); Magnesium 1.8 mg/dL (1.6-2.3); Non-African American GFR(MDRD) >60 (>60 ml/min/1.73 sqM); Potassium 4.2 mmol/L (3.5-5.1); Sodium 135 mmol/L (137-145); Total Bilirubin 0.4 mg/dL (0.2-1.3); Total Protein 5.2 g/dL (6.3-8.2)
[2017-06-16] MEDS ORDERED: Magnesium Replacement Protocol 1 EACH MISC MISCELLANE PRN (01:45)
[2017-06-16] MEDS: MAGNESIUM SULFATE-D5W PMX 1 GM in DEXTROSE/WATER 1 100ML.BAG IVPB SCH ×2 (01:58→04:25)
[2017-06-16 05:13] LABS: CH 30.3; CHCM 33.1; HCT 34.4 % (34.0-46.0); HDW 2.29; HGB 11.2 gm/dL (11.4-16.0); MCH 29.9 pg (25.0-35.0); MCHC 32.5 g/dL (31.0-37.0); Mean Platelet Volume 7.4; RBC 3.74 m/uL (3.80-5.40); RDW 14.4 % (11.5-15.5); WBC 8.4 k/uL (4.0-11.0)
[2017-06-16 05:27] LABS: Anion Gap 5 mmol/L; Blood Urea Nitrogen 4 mg/dL (7-17); Calcium 8.1 mg/dL (8.4-10.2); Carbon Dioxide 21 mmol/L (22-30); Chloride 110 mmol/L (98-107); Glucose 81 mg/dL (74-99); Non-African American GFR(MDRD) >60 (>60 ml/min/1.73 sqM); Phosphorus 3.8 mg/dL (2.5-4.5); Potassium 4.2 mmol/L (3.5-5.1); Sodium 136 mmol/L (137-145)
[2017-06-16 05:41] VITALS: RESP 18; TEMP 97.9
[2017-06-16 06:39] VITALS: BP 143/89; PULSE 94
[2017-06-16] MEDS ORDERED: PRENATAL VIT-IRON-FOLIC ACID 1 EACH CAP PO SCH (12:00)
== END 2017-06-16 07:24 | disposition short-term general hospital (02) | DRG 781 ==
LOC: EC 11:17 → 4MS4W 13:13 → 6ICU 06-16 01:06
PROVIDERS: ADMIT Family Medicine; ATTEND Family Medicine
DX: O99.352 Diseases of the nervous system complicating pregnancy, second trimester (principal); G40.401 Other generalized epilepsy and epileptic syndromes, not intractable, with status epilepticus; Z3A.18 18 weeks gestation of pregnancy; Z87.891 Personal history of nicotine dependence; Z91.14 Patient's other noncompliance with medication regimen; Z79.899 Other long term (current) drug therapy; Z88.0 Allergy status to penicillin; Z88.8 Allergy status to other drugs, medicaments and biological substances; Z88.1 Allergy status to other antibiotic agents; Z91.040 Latex allergy status; Z82.49 Family history of ischemic heart disease and other diseases of the circulatory system
CPT/HCPCS: 36415; 72040; 80048; 80053; 80177; 80306; 81001; 83520; 83735; 84100; 85025; 85027; 93005; 96361; 96365; 96375; 99284; 99285

== ENCOUNTER 2017-06-19 00:23 | Inpatient (IN) | payer OTHER ==
[2017-06-19] MEDS ORDERED: SODIUM CHLORIDE 0.9% 500 ML IV STA (00:35)
[2017-06-19] MEDS ORDERED: levETIRAcetam 500 MG TAB PO STA (00:36)
[2017-06-19 00:51] LABS: Basophils % (A) 0 %; CH 29.6; Eosinophils # (A) 0.3 k/uL (0-0.7); Eosinophils % (A) 3 %; HCT 35.6 % (34.0-46.0); HDW 2.35; Luc # (Auto) 0.15; Luc % (Auto) 2; Lymphocytes # (A) 1.8 k/uL (1.0-4.8); Lymphocytes % (A) 21 %; MCH 30.5 pg (25.0-35.0); MCHC 33.8 g/dL (31.0-37.0); MCV 90.2 fL (80.0-100.0); Mean Platelet Volume 6.9; Monocytes # (A) 0.5 k/uL (0-1.0); Monocytes % (A) 5 %; Neutrophils % (A) 69 %; RBC 3.94 m/uL (3.80-5.40); RDW 13.9 % (11.5-15.5); WBC 8.7 k/uL (4.0-11.0); WBC (Perox) 9.21
[2017-06-19 01:04] LABS: ALT 26 U/L (9-52); AST 10 U/L (14-36); Alkaline Phosphatase 61 U/L (38-126); Anion Gap 7 mmol/L; Blood Urea Nitrogen 3 mg/dL (7-17); Calcium 8.8 mg/dL (8.4-10.2); Carbon Dioxide 19 mmol/L (22-30); Chloride 109 mmol/L (98-107); Glucose 78 mg/dL (74-99); Non-African American GFR(MDRD) >60 (>60 ml/min/1.73 sqM); Sodium 135 mmol/L (137-145); Total Bilirubin 0.3 mg/dL (0.2-1.3); Total Protein 5.5 g/dL (6.3-8.2); Uric Acid 2.3 mg/dL (3.7-7.4)
--- NOTE | 2017-06-19 03:15 | ED ---
Seizure HPI - General Chief Complaint: Seizure Stated Complaint: Seizure Time Seen by Provider: 06/19/17 00:25 Source: patient, EMS Mode of arrival: EMS Limitations: no limitations - History of Present Illness Initial Comments: This patient is 22-year-old woman with history of seizure disorder, on Keppra, who is brought in tonight after she had a seizure at home. Patient reports that she had been admitted at [facility] for same, and had been seen by neurology. She does report that when she was discharged they decreased her Keppra dose from 1000 mg twice per day to 500 mg twice per day and she does not understand why the dose was lowered. She brings her hospital discharge papers that showed a Keppra level of 19.2 which is in the therapeutic window but not at the high-end certainly. The patient is denying trauma related to seizure. She is alert and able answer questions here. She did have urinary incontinence. Other review of systems, patient did state that over the previous couple days she had had some occasional pelvic contractions and a little bit of spotting, though not having no symptoms at the moment. MD Complaint: seizure -: minutes(s) Description of Episode: loss of consciousness, tonic-clonic movement, bladder incontinence -: minutes(s) Witnessed: yes - by bystander Trauma: No Seizure History: known seizure disorder Place: home Possible Precipitating Event: none Associated Symptoms: denies other symptoms Treatments Prior to Arrival: none - Related Data Previous Rx's Medication Instructions Recorded Eea-Brpg-Ixvvf Acid 1 cap PO DAILY #90 cap 03/24/17 [-U Capsule (formulary)] levETIRAcetam [Keppra] 1,000 mg PO Q12HR #14 tab 06/14/17 Allergies Allergy/AdvReac Type Severity Reaction Status Date / Time azithromycin [From Zithromax] Allergy Swelling Verified 06/19/17 00:49 Bleach (Sodium Hypochlorite) Allergy Itching Verified 06/19/17 00:49 cephalexin [From Keflex] Allergy Swelling Verified 06/19/17 00:49 fluconazole Allergy Swelling Verified 06/19/17 00:49 latex Allergy Anaphylaxis Verified 06/19/17 00:49 nystatin Allergy Swelling Verified 06/19/17 00:49 Penicillins Allergy Anaphylaxis Verified 06/19/17 00:49 carrots Allergy Anaphylaxis Uncoded 06/19/17 00:49 drinking milk Allergy Nausea & Uncoded 06/19/17 00:49 Vomiting & Diarrhea raw tomatoes Allergy Rash/Hives Uncoded 06/19/17 00:49 Review of Systems ROS Statement: Those systems with pertinent positive or pertinent negative responses have been documented in the HPI. ROS Other: All systems not noted in ROS Statement are negative. Constitutional: Denies: fever, chills, weakness Eyes: Denies: vision change Respiratory: Denies: cough, dyspnea Cardiovascular: Denies: chest pain, palpitations, dyspnea on exertion Gastrointestinal: Reports: abdominal pain (Intermittent cramping). Denies: nausea, vomiting, melena, hematochezia Genitourinary: Reports: discharge (Intermittent spotting). Denies: dysuria, frequency Musculoskeletal: Denies: back pain Skin: Denies: rash Neurological: Denies: headache, weakness, numbness Past Medical History Past Medical History: Seizure Disorder Additional Past Medical History / Comment(s): SYNCOPE- LOW BLOOD PRESSURE, EPILEPSY History of Any Multi-Drug Resistant Organisms: None Reported Past Surgical History: Section Past Anesthesia/Blood Transfusion Reactions: No Reported Reaction Past Psychological History: No Psychological Hx Reported Smoking Status: Former smoker Past Alcohol Use History: Occasional Past Drug Use History: None Reported - Past Family History Father Family Medical History: No Reported History Mother Family Medical History: No Reported History General Exam Limitations: no limitations General appearance: alert, in no apparent distress Head exam: Present: atraumatic, normocephalic Eye exam: Present: normal appearance, PERRL, EOMI. Absent: scleral icterus, conjunctival injection, nystagmus ENT exam: Present: normal oropharynx, TM's normal bilaterally Neck exam: Present: normal inspection, full ROM. Absent: meningismus Respiratory exam: Present: normal lung sounds bilaterally. Absent: respiratory distress, wheezes, rales, rhonchi, stridor Cardiovascular Exam: Present: regular rate, normal rhythm, normal heart sounds. Absent: systolic murmur, diastolic murmur, rubs, gallop GI/Abdominal exam: Present: soft. Absent: distended, tenderness, guarding, rebound, mass Extremities exam: Present: normal inspection, normal capillary refill. Absent: pedal edema, calf tenderness Back exam: Absent: CVA tenderness (R), CVA tenderness (L) Neurological exam: Present: alert, oriented X3, motor sensory deficit. Absent: CN II-XII intact Skin exam: Present: warm, dry, intact, normal color. Absent: rash Course Vital Signs 06/19/17 06/19/17 00:42 01:15 Temperature 98.5 F Pulse Rate 62 60 Respiratory 18 20 Rate Blood Pressure 135/82 125/92 O2 Sat by Pulse 98 96 Oximetry Medical Decision Making - Medical Decision Making This patient is a 22-year-old woman with history of seizure disorder who had a generalized tonic-clonic seizure tonight. Unfortunately Keppra level is a send out. Her anticonvulsant dosing was recently decreased, and suspect that this may be contributing. Patient does request input from the neurologist and we will admit her to observation be seen by neurology as she does not have a neurologist area her insurance recently changed and she is without one. Case discussed with the covering physician and will be admitted under her primary with consultation. - Lab Data Result diagrams: 06/19/17 00:40 06/19/17 00:40 Lab Results 06/19/17 06/19/17 06/19/17 Range/Units 00:40 00:40 00:40 WBC 8.7 (4.0-11.0) k/uL RBC 3.94 (3.80-5.40) m/uL Hgb 12.0 (11.4-16.0) gm/dL Hct 35.6 (34.0-46.0) % MCV 90.2 (80.0-100.0) fL MCH 30.5 (25.0-35.0) pg MCHC 33.8 (31.0-37.0) g/dL RDW 13.9 (11.5-15.5) % Plt Count 227 (150-450) k/uL Neutrophils % 69 % Lymphocytes % 21 % Monocytes % 5 % Eosinophils % 3 % Basophils % 0 % Neutrophils # 6.0 (1.3-7.7) k/uL Lymphocytes # 1.8 (1.0-4.8) k/uL Monocytes # 0.5 (0-1.0) k/uL Eosinophils # 0.3 (0-0.7) k/uL Basophils # 0.0 (0-0.2) k/uL Sodium 135 L (137-145) mmol/L Potassium 4.0 (3.5-5.1) mmol/L Chloride 109 H (98-107) mmol/L Carbon Dioxide 19 L (22-30) mmol/L Anion Gap 7 mmol/L BUN 3 L (7-17) mg/dL Creatinine 0.40 L (0.52-1.04) mg/dL Est GFR (MDRD) Af Amer >60 (>60 ml/min/1.73 sqM) Est GFR (MDRD) Non-Af >60 (>60 ml/min/1.73 sqM) Glucose 78 (74-99) mg/dL Plasma Lactic Acid Antonio 0.8 (0.7-2.0) mmol/L Uric Acid 2.3 L (3.7-7.4) mg/dL Calcium 8.8 (8.4-10.2) mg/dL Total Bilirubin 0.3 (0.2-1.3) mg/dL AST 10 L (14-36) U/L ALT 26 (9-52) U/L Alkaline Phosphatase 61 (38-126) U/L Total Protein 5.5 L (6.3-8.2) g/dL Albumin 2.9 L (3.5-5.0) g/dL Urine Opiates Screen (NotDetected) Ur Oxycodone Screen (NotDetected) Urine Methadone Screen (NotDetected) Ur Propoxyphene Screen (NotDetected) Ur Barbiturates Screen (NotDetected) U Tricyclic Antidepress (NotDetected) Ur Phencyclidine Scrn (NotDetected) Ur Amphetamines Screen (NotDetected) U Methamphetamines Scrn (NotDetected) U Benzodiazepines Scrn (NotDetected) Urine Cocaine Screen (NotDetected) U Marijuana (THC) Screen (NotDetected) 06/19/17 Range/Units 01:30 WBC (4.0-11.0) k/uL RBC (3.80-5.40) m/uL Hgb (11.4-16.0) gm/dL Hct (34.0-46.0) % MCV (80.0-100.0) fL MCH (25.0-35.0) pg MCHC (31.0-37.0) g/dL RDW (11.5-15.5) % Plt Count (150-450) k/uL Neutrophils % % Lymphocytes % % Monocytes % % Eosinophils % % Basophils % % Neutrophils # (1.3-7.7) k/uL Lymphocytes # (1.0-4.8) k/uL Monocytes # (0-1.0) k/uL Eosinophils # (0-0.7) k/uL Basophils # (0-0.2) k/uL Sodium (137-145) mmol/L Potassium (3.5-5.1) mmol/L Chloride (98-107) mmol/L Carbon Dioxide (22-30) mmol/L Anion Gap mmol/L BUN (7-17) mg/dL Creatinine (0.52-1.04) mg/dL Est GFR (MDRD) Af Amer (>60 ml/min/1.73 sqM) Est GFR (MDRD) Non-Af (>60 ml/min/1.73 sqM) Glucose (74-99) mg/dL Plasma Lactic Acid Antonio (0.7-2.0) mmol/L Uric Acid (3.7-7.4) mg/dL Calcium (8.4-10.2) mg/dL Total Bilirubin (0.2-1.3) mg/dL AST (14-36) U/L ALT (9-52) U/L Alkaline Phosphatase (38-126) U/L Total Protein (6.3-8.2) g/dL Albumin (3.5-5.0) g/dL Urine Opiates Screen Not Detected (NotDetected) Ur Oxycodone Screen Not Detected (NotDetected) Urine Methadone Screen Not Detected (NotDetected) Ur Propoxyphene Screen Not Detected (NotDetected) Ur Barbiturates Screen Not Detected (NotDetected) U Tricyclic Antidepress Not Detected (NotDetected) Ur Phencyclidine Scrn Not Detected (NotDetected) Ur Amphetamines Screen Not Detected (NotDetected) U Methamphetamines Scrn Not Detected (NotDetected) U Benzodiazepines Scrn Not Detected (NotDetected) Urine Cocaine Screen Not Detected (NotDetected) U Marijuana (THC) Screen Not Detected (NotDetected) - EKG Data -: EKG Interpreted by Mn EKG shows normal: sinus rhythm, axis (normal), intervals (normal), QRS complexes (normal), ST-T waves (normal) Rate: bradycardia (Rate 59 bpm) Interpretation: normal EKG Disposition Clinical Impression: Generalized seizure Disposition: HOME SELF-CARE Condition: Good Instructions: Recurrent Seizures in Adults (ED) Referrals: Les Bartholomew MD [Primary Care Provider] - 1-2 days
[2017-06-19] MEDS ORDERED: ACETAMINOPHEN TAB 325 MG TAB PO STA (04:54)
[2017-06-19] MEDS ORDERED: ACETAMINOPHEN TAB 325 MG TAB PO PRN (05:19)
[2017-06-19] MEDS ORDERED: NALOXONE 0.4 MG/ML 1 ML VIAL IV PRN (05:19)
--- NOTE | 2017-06-19 07:03 | US ---
EXAM: US After First Trimester, Transabdominal CLINICAL HISTORY: Reason: Pain/bleeding TECHNIQUE: Real-time transabdominal obstetrical ultrasound of the maternal pelvis and a second or third trimester with image documentation. COMPARISON: Ultrasound 03/24/2017 FINDINGS: Fetus: Single live intrauterine Heart rate: 145 bpm Presentation: Breech. lie: Longitudinal Placenta: Anterior and fundal No evidence of placenta previa. Amniotic fluid: Within normal limits. EDE is 11.17 cm Anatomy: Very Limited anatomic evaluation. Limited visualized anatomy is grossly normal. BIOMETRICS Gestational age by US: Composite ultrasound estimated gestational age is 18 weeks 3 days. This demonstrates normal interval growth as compared to prior study of 03/24/2017 EFW: ESTIMATED WEIGHT IN GRAMS: 248 grams BPD: 4.2 cm 18 weeks 5 days HC: 15.6 cm 18 weeks 4 days AC: 13.3 cm 18 weeks 6 days FL: 2.7 cm 18 weeks 3 days MATERNAL: Uterus: Unremarkable. Cervix: CERVICAL LENGTH : 4.1 cm Free fluid: No free fluid. Other findings: WEIGHT PERCENTAGE BASED ON ESTABLISHED DATES: 73.8% IMPRESSION: Single live intrauterine in breech presentation with composite ultrasound estimated gestational age of 18 weeks 3 days.
[2017-06-19] MEDS ORDERED: PRENATAL VIT-IRON-FOLIC ACID 1 EACH CAP PO SCH (09:00)
[2017-06-19] MEDS ORDERED: levETIRAcetam 500 MG TAB PO SCH (09:00)
[2017-06-19] MEDS ORDERED: LORazepam 2 MG/ML INJ IV PRN ×2 (09:14)
--- NOTE | 2017-06-19 09:30 | P.HPIM ---
History of Present Illness H&P Date: 06/19/17 Chief Complaint: recurrent seizure This is a history of physical and 22-year-old white female essentially admitted for recurrent seizure disorder. She was recently discharged from [facility] and was restarted on her Keppra. The patient has not had multiple seizures and will be transferred after discussion with neurology. Review of Systems Constitutional: Denies chills, Denies fever Eyes: denies blurred vision, denies pain Ears, nose, mouth and throat: Denies headache, Denies sore throat Genitourinary: Denies dysuria, Denies hematuria Neurological: Reports convulsions Past Medical History Past Medical History: Seizure Disorder Additional Past Medical History / Comment(s): PT IS , SYNCOPE, HYPOTENSION History of Any Multi-Drug Resistant Organisms: None Reported Past Surgical History: Section Past Anesthesia/Blood Transfusion Reactions: No Reported Reaction Smoking Status: Former smoker - Past Family History Father Family Medical History: No Reported History Mother Family Medical History: Hypertension Medications and Allergies Home Medications Medication Instructions Recorded Confirmed Type Ugc-[id number]-Pvkcd Acid 1 cap PO DAILY #90 cap 03/24/17 06/19/17 Rx [-U Capsule (formulary)] levETIRAcetam [Keppra] 500 mg PO Q12HR 06/19/17 06/19/17 History Allergies Allergy/AdvReac Type Severity Reaction Status Date / Time azithromycin [From Zithromax] Allergy Swelling Verified 06/19/17 06:57 Bleach (Sodium Hypochlorite) Allergy Itching Verified 06/19/17 06:57 carrot Allergy Anaphylaxis Verified 06/19/17 06:57 cephalexin [From Keflex] Allergy Swelling Verified 06/19/17 06:57 fluconazole Allergy Swelling Verified 06/19/17 06:57 latex Allergy Anaphylaxis Verified 06/19/17 06:57 nystatin Allergy Swelling Verified 06/19/17 06:57 Penicillins Allergy Anaphylaxis Verified 06/19/17 06:57 tomato Allergy Rash/Hives Verified 06/19/17 06:57 milk AdvReac Nausea & Verified 06/19/17 06:57 Vomiting & Diarrhea Physical Exam Vitals: Vital Signs Temp Pulse Pulse Resp BP BP Pulse Ox 06/19/17 07:58 96.9 F L 64 16 116/69 97 06/19/17 07:22 98.6 F 66 16 104/54 99 06/19/17 01:15 60 20 125/92 96 06/19/17 00:42 98.5 F 62 18 135/82 98 Intake and Output 06/18/17 06/19/17 06/19/17 22:59 06:59 14:59 Other: Weight 72.575 kg - Constitutional General appearance: no acute distress - EENT Eyes: EOMI - Neck Neck: no lymphadenopathy - Respiratory Respiratory: bilateral: CTA - Cardiovascular Rhythm: regular - Gastrointestinal General gastrointestinal: soft - Psychiatric Psychiatric: A&O x's 3, intact judgment & insight Results CBC & Chem 7: 06/19/17 00:40 06/19/17 00:40 Labs: Abnormal Lab Results - Last 24 Hours (Table) 06/19/17 Range/Units 00:40 Sodium 135 L (137-145) mmol/L Chloride 109 H (98-107) mmol/L Carbon Dioxide 19 L (22-30) mmol/L BUN 3 L (7-17) mg/dL Creatinine 0.40 L (0.52-1.04) mg/dL Uric Acid 2.3 L (3.7-7.4) mg/dL AST 10 L (14-36) U/L Total Protein 5.5 L (6.3-8.2) g/dL Albumin 2.9 L (3.5-5.0) g/dL Thrombosis Risk Factor Assmnt - Choose All That Apply Any of the Below Risk Factors Present?: No Other Risk Factors: No Other congenital or acquired thrombophilia - If yes, enter type in comment: No Thrombosis Risk Factor Assessment Level: Very Low Risk Assessment and Plan (1) Generalized seizure Status: Acute (2) Intrauterine Status: Acute (3) Noncompliance with medication regimen Status: Acute Plan: After discussion with neurology, we will go ahead and transfer to tertiary care center. [facility] has accepted the patient at this time.
--- NOTE | 2017-06-19 09:31 | P.DS ---
Providers Date of admission: 06/19/17 09:04 Expected date of discharge: 06/19/17 Attending physician: Les Bartholomew Consults: 06/19/17 05:20 Consult Physician Routine Consulting Provider: Kendal Padilla Consult Reason/Comments: seizure disorder Do you want consulting provider notified?: Yes Primary care physician: Les Bartholomew - Discharge Diagnosis(es) (1) Generalized seizure Current Visit: Yes Status: Acute (2) Intrauterine Current Visit: No Status: Acute (3) Noncompliance with medication regimen Current Visit: No Status: Acute Hospital Course: This is a discharge summary 22-year-old white female with seizure disorder who is about 18 weeks . She continues to have seizure disorder even though she is on Keppra. The patient is not to be transferred to [facility] for appropriate treatment. Patient Condition at Discharge: Good Plan - Discharge Summary New Discharge Prescriptions: No Action Pmf-Wikg-Syehj Acid [-U Capsule (formulary)] 1 cap PO DAILY #90 cap levETIRAcetam [Keppra] 500 mg PO Q12HR Discharge Medication List Ife-Twes-Fzdst Acid [-U Capsule (formulary)] 1 cap PO DAILY # 90 cap 03/24/17 [Rx] levETIRAcetam [Keppra] 500 mg PO Q12HR 06/19/17 [History] Follow up Appointment(s)/Referral(s): Les Bartholomew MD [Primary Care Provider] - 1-2 days Patient Instructions/Handouts: Recurrent Seizures in Adults (ED) Discharge Disposition: OTHER INSTITUTION NOT DEFINED
[2017-06-19 10:57] VITALS: BP 112/55; PULSE 73; RESP 16; TEMP 98.6
== END 2017-06-19 11:31 | disposition short-term general hospital (02) | DRG 566 ==
LOC: EC 00:23 → 4MS4W 05:21 → OBSVTOIN 09:04
PROVIDERS: ADMIT Family Medicine; ATTEND Family Medicine
DX: O99.352 Diseases of the nervous system complicating pregnancy, second trimester (principal); G40.409 Other generalized epilepsy and epileptic syndromes, not intractable, without status epilepticus; Z3A.18 18 weeks gestation of pregnancy; Z79.899 Other long term (current) drug therapy; Z87.891 Personal history of nicotine dependence; Z91.14 Patient's other noncompliance with medication regimen; Z88.0 Allergy status to penicillin; Z88.8 Allergy status to other drugs, medicaments and biological substances; Z88.1 Allergy status to other antibiotic agents; Z91.040 Latex allergy status; Z82.49 Family history of ischemic heart disease and other diseases of the circulatory system
CPT/HCPCS: 36415; 76805; 80053; 80306; 83605; 84550; 85025; 93005; 96360; 96361; 99285

== ENCOUNTER → 2017-07-25 | Outpatient (CLI) | payer OTHER ==
--- NOTE | 2017-07-25 11:49 | US ---
EXAMINATION TYPE: US thyroid st tissue head/neck DATE OF EXAM: 07/25/2017 COMPARISON: NONE CLINICAL HISTORY: 22-year-old female E04.1 Thyroid Nodule. TECHNIQUE: Multiple sonographic images of the thyroid gland are obtained. FINDINGS: GLAND SIZE: Right Lobe: 5.2 x 1.6 x 1.9 cm Overall Parenchyma: homogenous Left Lobe: 5.5 x 2.0 x 2.4 cm Overall Parenchyma: homogeneous Isthmus Thickness: 0.5 cm NODULES RIGHT: # of nodules measured on right: 0 LEFT: # of nodules measured on left: 1 1. 2.0 X 1.8 x 1.4 cm heterogeneous solid nodule at the mid-upper pole with well-defined margins. T here is intranodular vascularity. Prior size: no prior ISTHMUS: # of nodules measured in the isthmus: 0 Patient has palpable area far lateral left neck where a lymph node is seen measuring 1.3 x 0.3 x 0.9 , this is prominent but nonenlarged by size criteria. IMPRESSION: 1. Thyromegaly with a large 2.0 cm solid nodule in the left lobe. If there is no suspicion for a hype rfunctioning adenoma, biopsy should be considered. 2. Palpable area far lateral left neck shows a 1.3 x 0.9 cm lymph node. This is prominent but not enl arged by size criteria as short axis is 9 mm. This can be followed clinically.
== END | disposition home or self-care (01) ==
LOC: RADUSWWP 09:34
PROVIDERS: ATTEND Family Medicine
DX: E04.1 Nontoxic single thyroid nodule (principal); E01.0 Iodine-deficiency related diffuse (endemic) goiter
CPT/HCPCS: 76536

== ENCOUNTER 2017-07-27 17:51 | Emergency (ER) | payer OTHER ==
[2017-07-27] MEDS ORDERED: SODIUM CHLORIDE 0.9% 1,000 ML IV STA (19:34)
[2017-07-27 19:37] VITALS: RESP 18
[2017-07-27 19:51] LABS: Basophils % (A) 0 %; CH 30.1; CHCM 32.6; Eosinophils # (A) 0.5 k/uL (0-0.7); Eosinophils % (A) 5 %; HCT 36.4 % (34.0-46.0); HDW 2.62; HGB 11.7 gm/dL (11.4-16.0); Luc # (Auto) 0.15; Luc % (Auto) 1; Lymphocytes # (A) 1.1 k/uL (1.0-4.8); Lymphocytes % (A) 11 %; MCH 29.8 pg (25.0-35.0); MCHC 32.1 g/dL (31.0-37.0); MCV 92.8 fL (80.0-100.0); Mean Platelet Volume 6.7; Monocytes # (A) 0.7 k/uL (0-1.0); Monocytes % (A) 7 %; Neutrophils # (A) 7.5 k/uL (1.3-7.7); Neutrophils % (A) 75 %; RBC 3.93 m/uL (3.80-5.40); RDW 14.2 % (11.5-15.5); WBC 10.1 k/uL (4.0-11.0); WBC (Perox) 10.16
[2017-07-27 20:00] LABS: ALT 19 U/L (9-52); AST 12 U/L (14-36); Alkaline Phosphatase 76 U/L (38-126); Anion Gap 5 mmol/L; Blood Urea Nitrogen 7 mg/dL (7-17); Calcium 9.1 mg/dL (8.4-10.2); Carbon Dioxide 25 mmol/L (22-30); Chloride 107 mmol/L (98-107); Glucose 73 mg/dL (74-99); Magnesium 1.5 mg/dL (1.6-2.3); Non-African American GFR(MDRD) >60 (>60 ml/min/1.73 sqM); Potassium 3.8 mmol/L (3.5-5.1); Sodium 137 mmol/L (137-145); Total Bilirubin 0.2 mg/dL (0.2-1.3); Total Protein 5.6 g/dL (6.3-8.2)
[2017-07-27 20:08] LABS: Partial Thromboplastin Time 24.1 sec (22.0-30.0); Prothrombin Time 9.9 sec (9.0-12.0)
[2017-07-27 20:21] LABS: Creatine Kinase <20 U/L (30-135)
[2017-07-27 20:33] LABS: Creatine Kinase MB <0.2 ng/mL (0.0-2.4); Troponin I <0.012 ng/mL (0.000-0.034)
--- NOTE | 2017-07-27 21:11 | ED ---
Recheck HPI - General Chief Complaint: Recheck/Abnormal Lab/Rx Stated Complaint: 25 wks preg/tachycardia Time Seen by Provider: 07/27/17 19:06 Source: patient, RN notes reviewed, old records reviewed Mode of arrival: ambulatory Limitations: no limitations - History of Present Illness Initial Comments: Patient is a 22-year-old female presents emergency Department chief complaint of intermittent episodes of tachycardia. She states that she is currently 25 weeks . She denies any abdominal pain or cramping. She reports she occasionally has some right-sided chest pain when she feels like the palpitations occur. She reports she has a history of seizures, and was recently in [facility] ICU and the left acute and proximal 2 months ago. Patient states that she's been taking her Keppra since then. She states that since then she has not been able to follow-up with an OB if she is too high risk. Patient states that she reports that she's been monitoring her blood pressure as well. Her blood pressures fluctuate between 130/90. Patient states that she also has had occasional episodes of shortness of breath. She reports that these episodes only last a proximally 2 minutes and menstrual he subside.Patient was advised to come for further evaluation in regards to palpitations. Patient denies any chest pain or palptiations at thsi time in ED. - Related Data Home Medications Medication Instructions Recorded Confirmed levETIRAcetam [Keppra] 500 mg PO Q12HR 06/19/17 07/27/17 Previous Rx's Medication Instructions Recorded Ufh-Novf-Cxryb Acid 1 cap PO DAILY #90 cap 03/24/17 [-U Capsule (formulary)] Allergies Allergy/AdvReac Type Severity Reaction Status Date / Time azithromycin [From Zithromax] Allergy Swelling Verified 07/27/17 19:17 Bleach (Sodium Hypochlorite) Allergy Itching Verified 07/27/17 19:17 carrot Allergy Anaphylaxis Verified 07/27/17 19:17 cephalexin [From Keflex] Allergy Swelling Verified 07/27/17 19:17 fluconazole Allergy Swelling Verified 07/27/17 19:17 latex Allergy Anaphylaxis Verified 07/27/17 19:17 nystatin Allergy Swelling Verified 07/27/17 19:17 Penicillins Allergy Anaphylaxis Verified 07/27/17 19:17 tomato Allergy Rash/Hives Verified 07/27/17 19:17 milk AdvReac Nausea & Verified 07/27/17 19:17 Vomiting & Diarrhea Review of Systems ROS Statement: Those systems with pertinent positive or pertinent negative responses have been documented in the HPI. ROS Other: All systems not noted in ROS Statement are negative. Past Medical History Past Medical History: Seizure Disorder Additional Past Medical History / Comment(s): PT IS , SYNCOPE, HYPOTENSION History of Any Multi-Drug Resistant Organisms: None Reported Past Surgical History: Section Past Anesthesia/Blood Transfusion Reactions: No Reported Reaction Past Psychological History: No Psychological Hx Reported Smoking Status: Former smoker Past Alcohol Use History: Occasional Past Drug Use History: None Reported - Past Family History Father Family Medical History: No Reported History Mother Family Medical History: No Reported History General Exam - General Exam Comments Initial Comments: 22-year-old female. Patient does not appear to be in any acute distress. She is currently 25 weeks . Limitations: no limitations General appearance: alert, in no apparent distress Head exam: Present: atraumatic, normocephalic, normal inspection Eye exam: Present: normal appearance, PERRL, EOMI. Absent: scleral icterus, conjunctival injection, periorbital swelling ENT exam: Present: normal exam Neck exam: Present: normal inspection. Absent: tenderness, meningismus, lymphadenopathy Respiratory exam: Present: normal lung sounds bilaterally. Absent: respiratory distress, wheezes, rales, rhonchi, stridor Cardiovascular Exam: Present: regular rate, normal rhythm, normal heart sounds. Absent: systolic murmur, diastolic murmur, rubs, gallop, clicks GI/Abdominal exam: Present: soft, normal bowel sounds. Absent: distended, tenderness, guarding, rebound, rigid Extremities exam: Present: normal inspection, full ROM, normal capillary refill. Absent: tenderness, pedal edema, joint swelling, calf tenderness Back exam: Present: normal inspection Neurological exam: Present: alert, oriented X3, CN II-XII intact Psychiatric exam: Present: normal affect, normal mood Skin exam: Present: warm, dry, intact, normal color. Absent: rash Course Vital Signs 07/27/17 07/27/17 07/27/17 18:04 19:33 21:39 Temperature 98.0 F 98.3 F Pulse Rate 80 88 68 Pulse Rate [ 88 Web Production Assistant ] Respiratory 20 18 18 Rate Blood Pressure 150/78 138/89 130/67 O2 Sat by Pulse 100 99 100 Oximetry Medical Decision Making - Medical Decision Making Patient is a 22-year-old female presents emergency Department chief complaint of intermittent episodes of tachycardia. She states that she is currently 25 weeks . She denies any abdominal pain or cramping. She reports she occasionally has some right-sided chest pain when she feels like the palpitations occur. EAch episode last 5 minutes or less. No pattern noted to it. Patient had no chest pain in ED. Today EKG was within normal limits, no episodic tachycardia as well. Patient labs were reviewed and heart tones are also in normal limitis. PAtient has been infomred that these can occur due to vagal response, dehydration. Patient vitals are stable as well. Hollimaria fernandaaltagracia is informed at this time, lanie needs to follow up with PCP, OBGYN, and cardiology. Discussed negative lab work up, and that patient should remain hydrated and close follow up. REturn paramters dsicussed. - Lab Data Result diagrams: 07/27/17 19:25 07/27/17 19:25 Lab Results 07/27/17 07/27/17 07/27/17 Range/Units 19:25 19:25 19:25 WBC 10.1 (4.0-11.0) k/uL RBC 3.93 (3.80-5.40) m/uL Hgb 11.7 (11.4-16.0) gm/dL Hct 36.4 (34.0-46.0) % MCV 92.8 (80.0-100.0) fL MCH 29.8 (25.0-35.0) pg MCHC 32.1 (31.0-37.0) g/dL RDW 14.2 (11.5-15.5) % Plt Count 281 (150-450) k/uL Neutrophils % 75 % Lymphocytes % 11 % Monocytes % 7 % Eosinophils % 5 % Basophils % 0 % Neutrophils # 7.5 (1.3-7.7) k/uL Lymphocytes # 1.1 (1.0-4.8) k/uL Monocytes # 0.7 (0-1.0) k/uL Eosinophils # 0.5 (0-0.7) k/uL Basophils # 0.0 (0-0.2) k/uL PT (9.0-12.0) sec INR (<1.2) APTT (22.0-30.0) sec Sodium 137 (137-145) mmol/L Potassium 3.8 (3.5-5.1) mmol/L Chloride 107 (98-107) mmol/L Carbon Dioxide 25 (22-30) mmol/L Anion Gap 5 mmol/L BUN 7 (7-17) mg/dL Creatinine 0.50 L (0.52-1.04) mg/dL Est GFR (MDRD) Af Amer >60 (>60 ml/min/1.73 sqM) Est GFR (MDRD) Non-Af >60 (>60 ml/min/1.73 sqM) Glucose 73 L (74-99) mg/dL Calcium 9.1 (8.4-10.2) mg/dL Magnesium 1.5 L (1.6-2.3) mg/dL Total Bilirubin 0.2 (0.2-1.3) mg/dL AST 12 L (14-36) U/L ALT 19 (9-52) U/L Alkaline Phosphatase 76 (38-126) U/L Total Creatine Kinase <20 L (30-135) U/L CK-MB (CK-2) <0.2 (0.0-2.4) ng/mL CK-MB (CK-2) Rel Index Troponin I <0.012 (0.000-0.034) ng/mL Total Protein 5.6 L (6.3-8.2) g/dL Albumin 2.9 L (3.5-5.0) g/dL 07/27/17 Range/Units 19:25 WBC (4.0-11.0) k/uL RBC (3.80-5.40) m/uL Hgb (11.4-16.0) gm/dL Hct (34.0-46.0) % MCV (80.0-100.0) fL MCH (25.0-35.0) pg MCHC (31.0-37.0) g/dL RDW (11.5-15.5) % Plt Count (150-450) k/uL Neutrophils % % Lymphocytes % % Monocytes % % Eosinophils % % Basophils % % Neutrophils # (1.3-7.7) k/uL Lymphocytes # (1.0-4.8) k/uL Monocytes # (0-1.0) k/uL Eosinophils # (0-0.7) k/uL Basophils # (0-0.2) k/uL PT 9.9 (9.0-12.0) sec INR 1.0 (<1.2) APTT 24.1 (22.0-30.0) sec Sodium (137-145) mmol/L Potassium (3.5-5.1) mmol/L Chloride (98-107) mmol/L Carbon Dioxide (22-30) mmol/L Anion Gap mmol/L BUN (7-17) mg/dL Creatinine (0.52-1.04) mg/dL Est GFR (MDRD) Af Amer (>60 ml/min/1.73 sqM) Est GFR (MDRD) Non-Af (>60 ml/min/1.73 sqM) Glucose (74-99) mg/dL Calcium (8.4-10.2) mg/dL Magnesium (1.6-2.3) mg/dL Total Bilirubin (0.2-1.3) mg/dL AST (14-36) U/L ALT (9-52) U/L Alkaline Phosphatase (38-126) U/L Total Creatine Kinase (30-135) U/L CK-MB (CK-2) (0.0-2.4) ng/mL CK-MB (CK-2) Rel Index Troponin I (0.000-0.034) ng/mL Total Protein (6.3-8.2) g/dL Albumin (3.5-5.0) g/dL Interpretation: no acute changes, normal EKG Disposition Clinical Impression: History of palpitations, Disposition: HOME SELF-CARE Condition: Good Instructions: Tachycardia (ED) Additional Instructions: patient has a follow-up with her primary care provider. Make sure he stay hydrated. Follow-up with [employer] as well. Return to emergency department if any alarming signs or symptoms occur. Referrals: Les Bartholomew MD [Primary Care Provider] - 1-2 days Time of Disposition: 21:45
[2017-07-27 21:40] VITALS: BP 130/67; PULSE 68; TEMP 98.3
== END 2017-07-27 21:56 | disposition home or self-care (01) ==
LOC: EC 17:51
DX: O99.89 Other specified diseases and conditions complicating pregnancy, childbirth and the puerperium (principal); R00.2 Palpitations; O99.352 Diseases of the nervous system complicating pregnancy, second trimester; G40.909 Epilepsy, unspecified, not intractable, without status epilepticus; Z87.891 Personal history of nicotine dependence; Z98.890 Other specified postprocedural states; Z88.1 Allergy status to other antibiotic agents; Z91.040 Latex allergy status; Z88.0 Allergy status to penicillin; Z91.011 Allergy to milk products; Z91.048 Other nonmedicinal substance allergy status; Z91.018 Allergy to other foods; Z3A.25 25 weeks gestation of pregnancy; Z79.899 Other long term (current) drug therapy
CPT/HCPCS: 36415; 80053; 82550; 82553; 83735; 84484; 85025; 85610; 85730; 93005; 96360; 96361; 99285

== ENCOUNTER 2017-08-06 13:40 | Outpatient (CLI) | payer OTHER ==
[2017-08-06 14:59] VITALS: BP 138/90; PULSE 84; RESP 16; TEMP 96.8
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
== END 2017-08-06 14:20 | disposition home or self-care (01) ==
LOC: FBPOP 13:40
PROVIDERS: ATTEND Obstetrics & Gynecology
DX: O26.92 Pregnancy related conditions, unspecified, second trimester (principal); Z3A.25 25 weeks gestation of pregnancy
CPT/HCPCS: 84112; G0463; 99213

== ENCOUNTER 2017-08-16 12:55 | Emergency (ER) | payer OTHER ==
[~2017-08-16 12:55] MED LIST: DEXTROSE 5% IN WATER 50 ML BAG ONE; MAGNESIUM SULFATE SYG 4.06 MEQ/ML SYRINGE ONE
[2017-08-16] MEDS ORDERED: LORazepam 2 MG/ML INJ IV STA (13:11)
[2017-08-16] MEDS ORDERED: MAGNESIUM SULFATE-D5W PMX 1 GM in DEXTROSE/WATER 1 100ML.BAG IVPB SCH (13:15)
[2017-08-16 13:23] LABS: Basophils % (A) 0 %; CH 29.6; CHCM 32.5; Eosinophils # (A) 0.3 k/uL (0-0.7); Eosinophils % (A) 2 %; HCT 37.4 % (34.0-46.0); HDW 2.56; HGB 11.9 gm/dL (11.4-16.0); Luc # (Auto) 0.11; Luc % (Auto) 1; Lymphocytes # (A) 1.5 k/uL (1.0-4.8); Lymphocytes % (A) 11 %; MCH 29.2 pg (25.0-35.0); MCHC 31.9 g/dL (31.0-37.0); MCV 91.6 fL (80.0-100.0); Mean Platelet Volume 7.3; Monocytes # (A) 0.7 k/uL (0-1.0); Monocytes % (A) 5 %; Neutrophils # (A) 11.3 k/uL (1.3-7.7); Neutrophils % (A) 81 %; RBC 4.09 m/uL (3.80-5.40); RDW 14.7 % (11.5-15.5); WBC 13.9 k/uL (4.0-11.0); WBC (Perox) 14.93
[2017-08-16 13:35] LABS: ALT 22 U/L (9-52); AST 14 U/L (14-36); Alcohol <10 mg/dL; Alkaline Phosphatase 91 U/L (38-126); Anion Gap 7 mmol/L; Blood Urea Nitrogen 4 mg/dL (7-17); Calcium 8.9 mg/dL (8.4-10.2); Carbon Dioxide 22 mmol/L (22-30); Chloride 107 mmol/L (98-107); Glucose 76 mg/dL (74-99); Magnesium 1.6 mg/dL (1.6-2.3); Non-African American GFR(MDRD) >60 (>60 ml/min/1.73 sqM); Sodium 136 mmol/L (137-145); Total Bilirubin 0.2 mg/dL (0.2-1.3); Total Protein 6.2 g/dL (6.3-8.2)
[2017-08-16] MEDS ORDERED: ACETAMINOPHEN TAB 500 MG TAB PO STA (14:07)
[2017-08-16 14:49] VITALS: RESP 16
[2017-08-16 15:02] LABS: Appearance,Urine Clear (Clear); Bacteria,Urine Rare /hpf; Bilirubin,Urine Negative (Negative); Glucose,Urine (UA) Negative (Negative); Ketones,Urine Negative (Negative); Leukocyte Esterase,Urine Trace (Negative); Mucus,Urine Rare /hpf; Nitrite,Urine Negative (Negative); Particle Count 2978; Protein,Urine Negative (Negative); Specific Gravity,Urine 1.009 (1.001-1.035); Squamous Epithelial Cell,Urine 5 /hpf (0-4); UA Billing (MACRO vs. MICRO) MICRO; Urobilinogen,Urine <2.0 mg/dL (<2.0); WBC,Urine 1 /hpf (0-5)
--- NOTE | 2017-08-16 15:02 | ED ---
General Adult HPI - General Chief complaint: Seizure Stated complaint: seizures Time Seen by Provider: 08/16/17 13:12 Source: EMS, RN notes reviewed, old records reviewed Mode of arrival: EMS Limitations: altered mental status - History of Present Illness Initial comments: 22-year-old female presenting with seizure activity. Patient has had 3 tonic clonic seizures lasting approximate 5 minutes in duration each. Total time seizure 15-20 minutes. Patient has known history of epilepsy and recurrent seizures. Patient was noted by EMS to be . No additional history obtained at the time of presentation. - Related Data Home Medications Medication Instructions Recorded Confirmed Aspirin EC [Ecotrin Low Dose] 81 mg PO DAILY 08/06/17 08/16/17 Acetaminophen [Tylenol 8 Hour] 650 mg PO Q12H PRN 08/16/17 08/16/17 Urt-Qaiu-Xtqib Acid 1 cap PO DAILY 08/16/17 08/16/17 [-U Capsule (formulary)] levETIRAcetam [Keppra] 1,000 mg PO Q12HR 08/16/17 08/16/17 Allergies Allergy/AdvReac Type Severity Reaction Status Date / Time azithromycin [From Zithromax] Allergy Swelling Verified 08/16/17 13:32 Bleach (Sodium Hypochlorite) Allergy Itching Verified 08/16/17 13:32 carrot Allergy Anaphylaxis Verified 08/16/17 13:32 cephalexin [From Keflex] Allergy Swelling Verified 08/16/17 13:32 fluconazole Allergy Swelling Verified 08/16/17 13:32 latex Allergy Anaphylaxis Verified 08/16/17 13:32 nystatin Allergy Swelling Verified 08/16/17 13:32 Penicillins Allergy Anaphylaxis Verified 08/16/17 13:32 tomato Allergy Rash/Hives Verified 08/16/17 13:32 milk AdvReac Nausea & Verified 08/16/17 13:32 Vomiting & Diarrhea Review of Systems ROS Statement: Those systems with pertinent positive or pertinent negative responses have been documented in the HPI. Limitations: ROS unobtainable due to patients medical condition Past Medical History Past Medical History: Seizure Disorder Additional Past Medical History / Comment(s): PT IS , SYNCOPE, HYPOTENSION, tachycardia, seizures, anemia History of Any Multi-Drug Resistant Organisms: None Reported Past Surgical History: Section Past Anesthesia/Blood Transfusion Reactions: No Reported Reaction Past Psychological History: No Psychological Hx Reported Smoking Status: Never smoker Past Alcohol Use History: None Reported Past Drug Use History: None Reported - Past Family History Father Family Medical History: No Reported History Mother Family Medical History: No Reported History General Exam - General Exam Comments Initial Comments: Physical exam after resolution of seizure activity Limitations: altered mental status General appearance: alert, in no apparent distress Head exam: Present: atraumatic, normocephalic Eye exam: Present: normal appearance, PERRL, EOMI ENT exam: Present: normal exam Neck exam: Present: normal inspection. Absent: tenderness, meningismus Respiratory exam: Present: normal lung sounds bilaterally. Absent: respiratory distress, wheezes Cardiovascular Exam: Present: regular rate, normal rhythm GI/Abdominal exam: Present: soft. Absent: distended, tenderness Extremities exam: Present: normal inspection, normal capillary refill. Absent: pedal edema Neurological exam: Present: alert, oriented X3, CN II-XII intact. Absent: motor sensory deficit Psychiatric exam: Present: normal affect, normal mood Skin exam: Present: warm, dry, intact. Absent: cyanosis, diaphoretic Course Vital Signs 08/16/17 08/16/17 08/16/17 13:00 13:20 13:47 Temperature 100.4 F H Pulse Rate 101 H 98 87 Respiratory 20 18 18 Rate Blood Pressure 141/76 124/64 118/61 O2 Sat by Pulse 97 96 100 Oximetry 08/16/17 14:48 Temperature Pulse Rate 87 Respiratory 16 Rate Blood Pressure 115/54 O2 Sat by Pulse 99 Oximetry - Reevaluation(s) Reevaluation #1: 08/16/17 14:52 After initial treatment with 2 mg Ativan, and magnesium seizure activity stops. EKG Findings - EKG Comments: EKG Findings:: EKG shows normal sinus rhythm, ventricular rate 100, FL interval 132, QRS duration 80, QTC 428, no signs of arrhythmia, or ischemia Medical Decision Making - Medical Decision Making 22-year-old female history of recurrent seizures. He shouldn't presents seizing , unknown gestation. She is given Ativan and magnesium. Seizure activity resolved. Patient has a 10 minute period of postictal state. On reevaluation after seizure activity is resolved, patient is alert and oriented, nonfocal neurologic examination. Bedside ultrasound reveals intrauterine , heart tones 130. Patient states she is on Keppra. This level will be obtained. Patient is not currently being followed by high court justice. She had an issue his seizures early in her , and was transferred to [facility]. Patient states she does not want to go to [facility]. Case is discussed with the patient's primary care physician Dr. Bartholomew who is aware of her condition. He does recommended transfer to outside hospital for maternal - medicine. Laboratory studies are obtained, mild leukocytosis 13.9, hemoglobin 11.9 which is stable, sodium 136, creatinine normal, no lactic acidosis. Keppra level is pending, this is a send out. Further history reveals patient is 012, currently at 26 weeks gestation. Patient will be transferred to [facility] accepting physician Dr. Wells - Lab Data Result diagrams: 08/16/17 13:00 08/16/17 13:00 Lab Results 08/16/17 08/16/17 08/16/17 Range/Units 13:00 13:00 13:15 WBC 13.9 H (4.0-11.0) k/uL RBC 4.09 (3.80-5.40) m/uL Hgb 11.9 (11.4-16.0) gm/dL Hct 37.4 (34.0-46.0) % MCV 91.6 (80.0-100.0) fL MCH 29.2 (25.0-35.0) pg MCHC 31.9 (31.0-37.0) g/dL RDW 14.7 (11.5-15.5) % Plt Count 298 (150-450) k/uL Neutrophils % 81 % Lymphocytes % 11 % Monocytes % 5 % Eosinophils % 2 % Basophils % 0 % Neutrophils # 11.3 H (1.3-7.7) k/uL Lymphocytes # 1.5 (1.0-4.8) k/uL Monocytes # 0.7 (0-1.0) k/uL Eosinophils # 0.3 (0-0.7) k/uL Basophils # 0.0 (0-0.2) k/uL Sodium 136 L (137-145) mmol/L Potassium 4.0 (3.5-5.1) mmol/L Chloride 107 (98-107) mmol/L Carbon Dioxide 22 (22-30) mmol/L Anion Gap 7 mmol/L BUN 4 L (7-17) mg/dL Creatinine 0.49 L (0.52-1.04) mg/dL Est GFR (MDRD) Af Amer >60 (>60 ml/min/1.73 sqM) Est GFR (MDRD) Non-Af >60 (>60 ml/min/1.73 sqM) Glucose 76 (74-99) mg/dL Plasma Lactic Acid Antonio 1.3 (0.7-2.0) mmol/L Calcium 8.9 (8.4-10.2) mg/dL Magnesium 1.6 (1.6-2.3) mg/dL Total Bilirubin 0.2 (0.2-1.3) mg/dL AST 14 (14-36) U/L ALT 22 (9-52) U/L Alkaline Phosphatase 91 (38-126) U/L Total Protein 6.2 L (6.3-8.2) g/dL Albumin 3.3 L (3.5-5.0) g/dL HCG, Quant 8011.6 mIU/mL Serum Alcohol <10 mg/dL Critical Care Time Critical Care Time: Yes Total Critical Care Time: 35 Disposition Clinical Impression: Epileptic seizure, Status epilepticus, Intrauterine Disposition: OTHER INSTITUTION NOT DEFINED Condition: Stable Referrals: Les Bartholomew MD [Primary Care Provider] - 1-2 days Time of Disposition: 15:02 - Out of Hospital Transfer - Req. Specs Out of Hospital Transfer - Requested Specifics: Other Non-Acute (Transfer to [facility], Dr. Wells)
[2017-08-16 15:36] VITALS: BP 113/62; PULSE 90; TEMP 98.3
[2017-08-17 07:14] LABS: Glucose,Whole Blood 87 mg/dL (75-99)
== END 2017-08-16 16:06 | disposition short-term general hospital (02) ==
LOC: EC 12:55
DX: O99.352 Diseases of the nervous system complicating pregnancy, second trimester (principal); G40.901 Epilepsy, unspecified, not intractable, with status epilepticus; O99.112 Other diseases of the blood and blood-forming organs and certain disorders involving the immune mechanism complicating pregnancy, second trimester; D72.829 Elevated white blood cell count, unspecified; O99.89 Other specified diseases and conditions complicating pregnancy, childbirth and the puerperium; R41.82 Altered mental status, unspecified; Z79.82 Long term (current) use of aspirin; Z79.899 Other long term (current) drug therapy; Z88.0 Allergy status to penicillin; Z88.1 Allergy status to other antibiotic agents; Z88.8 Allergy status to other drugs, medicaments and biological substances; Z91.011 Allergy to milk products; Z91.018 Allergy to other foods; Z91.041 Radiographic dye allergy status; Z98.890 Other specified postprocedural states; Z3A.26 26 weeks gestation of pregnancy
CPT/HCPCS: 36415; 80053; 80177; 80306; 80320; 81001; 83605; 83735; 84702; 85025; 93005; 96374; 96375; 99291

== ENCOUNTER 2017-08-31 07:39 | Outpatient (CLI) | payer OTHER ==
[2017-08-31 08:45] VITALS: BP 136/64; PULSE 86; RESP 16; TEMP 97.9
--- NOTE | 2017-10-06 07:55 | P.MSEPDOC ---
Presenting Problems - Arrival Data Date of Arrival on Unit: 08/31/17 Time of Arrival on Unit: 07:39 Mode of Transport: Ambulatory - Complaint OB-Reason for Admission/Chief Complaint: Possible Onset of Labor, Pain Comment: states lost mucus plug, pelvic pain Medical History - Information : 4 Para: 2 Term: 1 : 1 Abortions: Spontaneous or Elective: 1 Number of Living Children: 2 - Gestational Age Gestational Age by SHERI (wks/days): 29 Weeks and 2 Days - History Complications: Preeclampsia, Prior Review of Systems - Review of Systems Constitutional: No problems Breast: No problems ENT: No problems Cardiovascular: Irregular heartbeat Respiratory: No problems Gastrointestinal: No problems Genitourinary: No problems Musculoskeletal: No problems Neurological: Seizure Skin: No problems Vital Signs - Temperature Temperature: 97.9 F Temperature Source: Oral - Pulse Right Brachial Pulse Rate: 86 Pulse Assessment Method: Automatic Cuff - Respirations Respiratory Rate: 16 Oxygen Delivery Method: Room Air O2 Sat by Pulse Oximetry: 96 - Blood Pressure Right Arm Blood Pressure: 136/64 Blood Pressure Mean: 88 Blood Pressure Source: Automatic Cuff Medical Screen Scoring (Pre) - Cervical Exam Dilation: 0 cm = 0 Membranes: Intact - Uterine Contractions Frequency: N/A Duration: N/A Intensity: N/A - Maternal Vital Signs Maternal Temperature: N/A Signs of Preeclampsia: N/A Maternal Respirations: N/A - Pain Assessment Pain Location and Character: Lower, Abdomen Pain Scale Used: Numeric (1 - 10) Pain Intensity: 1 Pain Management Goal: 1 Pain Description: Aching Pain Frequency: Intermittent Pain Duration Units: Hours Pain Behavior: Vomiting Pain Aggravating Factors: Activity Non-Pharmacological Interventions: Position/Reposition - Maternal Trauma Maternal Trauma: N/A - Assessment Baseline FHR: 140 Heart Rate - NICHD Category: Category I (Normal) = 0 NST: Reactive Position: N/A Station: N/A - Total Score Total Score (Pre): 0 - Level of Risk Level of Risk: N/A Physician Notification (Pre) - Physician Notified Physician Notified Date: 08/31/17 Physician Notified Time: 08:40 - Notification Comment Comment: [id number] Dr Clement returned call from OR report given pt may be discharged home. Disposition - Disposition OB Disposition: Discharge to home Discharge Date: 08/31/17 Discharge Time: 09:06 I agree with the RN Medical Screening Exam: Yes Risk & Benefit of care provided described in d/c instruction: Yes Diagnosis: PELVIC AND PERINEAL PAIN
== END 2017-08-31 09:06 | disposition home or self-care (01) ==
LOC: FBPOP 07:39
PROVIDERS: ATTEND Obstetrics & Gynecology
DX: O26.893 Other specified pregnancy related conditions, third trimester (principal); R10.2 Pelvic and perineal pain; Z87.59 Personal history of other complications of pregnancy, childbirth and the puerperium; Z3A.29 29 weeks gestation of pregnancy
CPT/HCPCS: 59025; G0463; 99213

== ENCOUNTER 2017-09-07 19:31 | Emergency (ER) | payer OTHER ==
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
[2017-09-07 20:38] VITALS: BP 131/68; PULSE 89; RESP 20; TEMP 98.5
== END 2017-09-07 20:37 | disposition home or self-care (01) ==
LOC: EC 19:31
DX: O99.89 Other specified diseases and conditions complicating pregnancy, childbirth and the puerperium (principal); R10.9 Unspecified abdominal pain; M54.2 Cervicalgia; O99.353 Diseases of the nervous system complicating pregnancy, third trimester; G40.909 Epilepsy, unspecified, not intractable, without status epilepticus; Z87.891 Personal history of nicotine dependence; Z79.82 Long term (current) use of aspirin; Z79.899 Other long term (current) drug therapy; Z88.0 Allergy status to penicillin; Z88.1 Allergy status to other antibiotic agents; Z88.8 Allergy status to other drugs, medicaments and biological substances; Z91.011 Allergy to milk products; Z91.018 Allergy to other foods; Z91.040 Latex allergy status; Z91.048 Other nonmedicinal substance allergy status; Z98.890 Other specified postprocedural states; V48.5XXA Car driver injured in noncollision transport accident in traffic accident, initial encounter; Y92.411 Interstate highway as the place of occurrence of the external cause; Z3A.30 30 weeks gestation of pregnancy
CPT/HCPCS: 76805; 99284

== ENCOUNTER 2017-09-07 20:36 | Outpatient (CLI) | payer OTHER ==
[2017-09-07] MEDS ORDERED: ACETAMINOPHEN TAB 325 MG TAB PO STA (21:27)
[2017-09-07 22:09] VITALS: RESP 16
[2017-09-07 23:35] VITALS: BP 133/63; PULSE 67; TEMP 97.4
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
== END 2017-09-08 01:08 | disposition home or self-care (01) ==
LOC: FBPOP 20:36
PROVIDERS: ATTEND Obstetrics & Gynecology
DX: O99.89 Other specified diseases and conditions complicating pregnancy, childbirth and the puerperium (principal); G89.11 Acute pain due to trauma; Z3A.30 30 weeks gestation of pregnancy
CPT/HCPCS: 59025; 76805; G0463; 99215

== ENCOUNTER 2017-10-11 21:30 | Outpatient (CLI) | payer OTHER ==
[2017-10-11 23:08] VITALS: BP 148/73; PULSE 79; RESP 18; TEMP 98.8
--- NOTE | 2017-12-01 09:20 | P.MSEPDOC ---
Presenting Problems - Arrival Data Date of Arrival on Unit: 10/11/17 Time of Arrival on Unit: 21:30 Mode of Transport: Ambulatory - Complaint OB-Reason for Admission/Chief Complaint: Decreased Movement Medical History - Information : 4 Para: 2 Term: 1 : 1 Abortions: Spontaneous or Elective: 1 Number of Living Children: 2 - Gestational Age Gestational Age by SHERI (wks/days): 35 Weeks and 1 Days - History Complications: Other Comment: HX of epilepsy with 37 seizures during this Review of Systems - Review of Systems Constitutional: No problems Breast: No problems ENT: No problems Cardiovascular: No problems Respiratory: No problems Gastrointestinal: No problems Genitourinary: No problems Musculoskeletal: No problems Neurological: Seizure Skin: No problems Comment: No current seizure has history Vital Signs - Temperature Temperature: 98.8 F Temperature Source: Temporal Artery Scan - Pulse Right Supine Pulse Oximetery Pulse Rate: 79 Pulse Assessment Method: Pulse Oximetry - Respirations Respiratory Rate: 18 Oxygen Delivery Method: Room Air O2 Sat by Pulse Oximetry: 97 - Blood Pressure Right Arm Supine Blood Pressure: 148/73 Blood Pressure Mean: 98 Blood Pressure Source: Automatic Cuff Medical Screen Scoring (Pre) - Cervical Exam Dilation: Exam Deferred Effacement: Exam Deferred Membranes: Intact - Uterine Contractions Frequency: N/A Duration: N/A Intensity: N/A - Maternal Vital Signs Maternal Temperature: N/A Maternal Blood Pressure: Systolic >139 = 2 - Pain Assessment Pain Intensity: 0 Pain Management Goal: 0 Pain Behavior: None Exhibited - Maternal Trauma Maternal Trauma: N/A - Assessment Baseline FHR: 135 NST: Reactive Position: N/A - Total Score Total Score (Pre): 2 - Level of Risk Level of Risk: Low (0-5) Physician Notification (Pre) - Physician Notified Physician Notified Date: 10/11/17 Physician Notified Time: 22:27 Physician/Practitioner Notifed:: Jaquan Spoke With: Jaquan New Order Received: Yes - Notification Comment Comment: May discharge to home with instructions and follow up with regular scheduled appointment Disposition - Disposition OB Disposition: Discharge to home Transferred to:: Home Discharge Date: 10/11/17 Discharge Time: 22:30 I agree with the RN Medical Screening Exam: Yes Risk & Benefit of care provided described in d/c instruction: Yes Diagnosis: DECREASED MOVEMENTS, THIRD TRIMESTER, FETUS 1
== END 2017-10-11 22:30 | disposition home or self-care (01) ==
LOC: FBPOP 21:30
PROVIDERS: ATTEND Obstetrics & Gynecology Obstetrics
DX: O36.8130 Decreased fetal movements, third trimester, not applicable or unspecified (principal); Z3A.35 35 weeks gestation of pregnancy
CPT/HCPCS: 59025; 84112; G0463; 99213

== ENCOUNTER 2017-10-24 20:49 | Emergency (ER) | payer OTHER ==
[2017-10-24 20:57] VITALS: RESP 18
[2017-10-24] MEDS ORDERED: SODIUM CHLORIDE 0.9% 1,000 ML IV STA (21:20)
[2017-10-24 21:39] LABS: Appearance,Urine Cloudy (Clear); Bacteria,Urine Few /hpf; Bilirubin,Urine Negative (Negative); Blood,Urine Negative (Negative); Color,Urine Yellow; Glucose,Urine (UA) Negative (Negative); Ketones,Urine Negative (Negative); Leukocyte Esterase,Urine Negative (Negative); Mucus,Urine Few /hpf; Nitrite,Urine Negative (Negative); Protein,Urine Trace (Negative); RBC,Urine 2 /hpf (0-5); Specific Gravity,Urine 1.021 (1.001-1.035); Squamous Epithelial Cell,Urine 4 /hpf (0-4); WBC,Urine 3 /hpf (0-5)
[2017-10-24 21:43] LABS: Basophils # (A) 0.1 k/uL (0-0.2); Basophils % (A) 1 %; Eosinophils # (A) 0.4 k/uL (0-0.7); Eosinophils % (A) 4 %; HCT 37.3 % (34.0-46.0); HGB 12.3 gm/dL (11.4-16.0); Lymphocytes # (A) 1.6 k/uL (1.0-4.8); Lymphocytes % (A) 15 %; MCH 29.6 pg (25.0-35.0); MCHC 32.9 g/dL (31.0-37.0); MCV 89.9 fL (80.0-100.0); Mean Platelet Volume 7.2; Monocytes # (A) 0.7 k/uL (0-1.0); Monocytes % (A) 6 %; Neutrophils # (A) 7.7 k/uL (1.3-7.7); Neutrophils % (A) 73 %; Platelet Count 276 k/uL (150-450); RBC 4.15 m/uL (3.80-5.40); RDW 13.6 % (11.5-15.5); WBC 10.6 k/uL (4.0-11.0)
[2017-10-24 21:44] LABS: Prothrombin Time 9.8 sec (9.0-12.0)
[2017-10-24 21:46] LABS: ALT 19 U/L (9-52); AST 17 U/L (14-36); Albumin 3.2 g/dL (3.5-5.0); Alkaline Phosphatase 107 U/L (38-126); Amylase 74 U/L (30-110); Anion Gap 6 mmol/L; Blood Urea Nitrogen 5 mg/dL (7-17); Calcium 8.8 mg/dL (8.4-10.2); Carbon Dioxide 22 mmol/L (22-30); Chloride 107 mmol/L (98-107); Glucose 88 mg/dL (74-99); Lipase 93 U/L (23-300); Potassium 4.4 mmol/L (3.5-5.1); Sodium 135 mmol/L (137-145); Total Bilirubin 0.2 mg/dL (0.2-1.3); Total Protein 6.1 g/dL (6.3-8.2)
--- NOTE | 2017-10-24 22:28 | ED ---
General Adult HPI - General Chief complaint: Recheck/Abnormal Lab/Rx Stated complaint: OB wants liver labs Time Seen by Provider: 10/24/17 21:08 Source: patient Mode of arrival: ambulatory Limitations: no limitations - History of Present Illness Initial comments: 22 years old female 37 weeks presented with right upper quadrant area pain she has is ongoing for a few days now also complaining about left leg swelling he has no history of cholecystectomy and now complaining about pressure in the right upper quadrant area also feeling itchy started on the arms now is all over she denies any nausea no vomiting no fever no chills denies any chest pain no shortness of breath no pleuritic chest pain she does have a history of eclampsia. Denies any vaginal bleeding or vaginal discharge no abdominal pain no cramps - Related Data Home Medications Medication Instructions Recorded Confirmed Aspirin EC [Ecotrin Low Dose] 81 mg PO DAILY 08/06/17 10/24/17 Djk-Jtii-Adelo Acid 1 cap PO DAILY 08/16/17 10/24/17 [-U Capsule (formulary)] levETIRAcetam [Keppra] 1,000 mg PO BID 08/16/17 10/24/17 Ferrous Sulfate [Feosol] 325 mg PO DAILY 09/07/17 10/24/17 Folic Acid 1 mg PO BID 10/24/17 10/24/17 Allergies Allergy/AdvReac Type Severity Reaction Status Date / Time azithromycin [From Zithromax] Allergy Severe Anaphylaxis Verified 10/24/17 21:42 Bleach (Sodium Hypochlorite) Allergy Itching Verified 10/24/17 21:42 carrot Allergy Anaphylaxis Verified 10/24/17 21:42 cephalexin [From Keflex] Allergy Swelling Verified 10/24/17 21:42 fluconazole Allergy Swelling Verified 10/24/17 21:42 latex Allergy Anaphylaxis Verified 10/24/17 21:42 nystatin Allergy Swelling Verified 10/24/17 21:42 Penicillins Allergy Anaphylaxis Verified 10/24/17 21:42 tomato Allergy Rash/Hives Verified 10/24/17 21:42 milk AdvReac Nausea & Verified 10/24/17 21:42 Vomiting & Diarrhea Review of Systems ROS Statement: Those systems with pertinent positive or pertinent negative responses have been documented in the HPI. ROS Other: All systems not noted in ROS Statement are negative. Past Medical History Past Medical History: Seizure Disorder Additional Past Medical History / Comment(s): PT IS , SYNCOPE, HYPOTENSION, tachycardia, seizures, anemia, eclampsia, preeclampsia History of Any Multi-Drug Resistant Organisms: None Reported Past Surgical History: Section Past Anesthesia/Blood Transfusion Reactions: No Reported Reaction Past Psychological History: No Psychological Hx Reported Smoking Status: Never smoker Past Alcohol Use History: None Reported Past Drug Use History: None Reported - Past Family History Father Family Medical History: No Reported History Mother Family Medical History: No Reported History General Exam - General Exam Comments Initial Comments: General: The patient is awake and alert, in no distress, and does not appear acutely ill. Skin: Skin is warm and dry and no rashes or lesions are noted. Eye: Pupils are equal, round and reactive to light, extra-ocular movements are intact; there is normal conjunctiva bilaterally. Ears, nose, mouth and throat: There are moist mucous membranes and no oral lesions. Neck: The neck is supple, there is no tenderness or JVD. Cardiovascular: There is a regular rate and rhythm. No murmur, rub or gallop is appreciated. Respiratory: To auscultation bilateral, no wheezing no rhonchi no distress respiratory cole noticed Gastrointestinal: She is , mildly tender in the right upper quadrant area bowel sounds are positive no guarding no rebounds no tenderness noticed over the costophrenic angles bilaterally Back: There is no tenderness to palpation in the midline. There is no obvious deformity. Musculoskeletal: Normal ROM, left leg is slightly tender to palpate over the gastrocnemius muscles, noticed mild dependent edema bilateral Neurological: CN II-XII intact, Cranial nerves III through XII are intact. There are no obvious motor or sensory deficits. Coordination appears grossly intact. Speech is normal. Psychiatric: Cooperative, appropriate mood & affect, normal judgment. Limitations: no limitations Course Vital Signs 10/24/17 20:52 Temperature 96.9 F L Pulse Rate 68 Respiratory 18 Rate Blood Pressure 163/78 O2 Sat by Pulse 99 Oximetry She was reassessed at 2224, her CBC is within normal range compressive metabolic panel urinalysis urinalysis showed trace protein - Reevaluation(s) Reevaluation #1: Vision was reassessed several times regarding imaging WITH THE RIGHT UPPER QUADRANT AREA SHOWS GALLSTONES THOUGH THERE IS NO CHOLECYSTITIS LIVER FUNCTIONS ARE NORMAL ULTRASOUND OF THE LEG IS NEGATIVE FOR ANY DVTS. FAR HER BLOOD PRESSURES CONCERN BLOOD PRESSURE WAS QUITE ELEVATED I DID SPEAK WITH HER ABOUT ESPECIALLY CONSIDERING THAT SHE HAS HISTORY OF ECLAMPSIA GOING ON HYDRALAZINE AND LABETALOL MONITORING HER BLOOD PRESSURE PRETTY REGULARLY HER BLOOD PRESSURE AT HOME IS MOST THE TIME 120/80, SHE WAS ON LABETALOL EARLIER BUT IT WAS DISCONTINUED CONSIDERING BLOOD PRESSURE HAS BEEN VERY LOW. SHE WAS ALSO ADVISED TO FOLLOW WITH THE DR. RAMIRO GRANDA THAT GALLSTONES COULD BE TAKING CARE ONCE SHE DELIVERS THE BABY SHE AGREES WITH. AT THIS POINT SHE DO NOT WANT TO GO BACK ON LABETALOL AND HYDRALAZINE 10/24/17 23:49 Medical Decision Making - Lab Data Result diagrams: 10/24/17 21:26 10/24/17 21:26 Lab Results 10/24/17 10/24/17 10/24/17 Range/Units 21:26 21:26 21:26 WBC 10.6 (4.0-11.0) k/uL RBC 4.15 (3.80-5.40) m/uL Hgb 12.3 (11.4-16.0) gm/dL Hct 37.3 (34.0-46.0) % MCV 89.9 (80.0-100.0) fL MCH 29.6 (25.0-35.0) pg MCHC 32.9 (31.0-37.0) g/dL RDW 13.6 (11.5-15.5) % Plt Count 276 (150-450) k/uL Neutrophils % 73 % Lymphocytes % 15 % Monocytes % 6 % Eosinophils % 4 % Basophils % 1 % Neutrophils # 7.7 (1.3-7.7) k/uL Lymphocytes # 1.6 (1.0-4.8) k/uL Monocytes # 0.7 (0-1.0) k/uL Eosinophils # 0.4 (0-0.7) k/uL Basophils # 0.1 (0-0.2) k/uL PT (9.0-12.0) sec INR (<1.2) Sodium 135 L (137-145) mmol/L Potassium 4.4 (3.5-5.1) mmol/L Chloride 107 (98-107) mmol/L Carbon Dioxide 22 (22-30) mmol/L Anion Gap 6 mmol/L BUN 5 L (7-17) mg/dL Creatinine 0.47 L (0.52-1.04) mg/dL Est GFR (MDRD) Af Amer >60 (>60 ml/min/1.73 sqM) Est GFR (MDRD) Non-Af >60 (>60 ml/min/1.73 sqM) Glucose 88 (74-99) mg/dL Calcium 8.8 (8.4-10.2) mg/dL Total Bilirubin 0.2 (0.2-1.3) mg/dL AST 17 (14-36) U/L ALT 19 (9-52) U/L Alkaline Phosphatase 107 (38-126) U/L Total Protein 6.1 L (6.3-8.2) g/dL Albumin 3.2 L (3.5-5.0) g/dL Amylase 74 (30-110) U/L Lipase 93 (23-300) U/L Urine Color Yellow Urine Appearance Cloudy H (Clear) Urine pH 8.0 (5.0-8.0) Ur Specific [place] 1.021 (1.001-1.035) Urine Protein Trace H (Negative) Urine Glucose (UA) Negative (Negative) Urine Ketones Negative (Negative) Urine Blood Negative (Negative) Urine Nitrite Negative (Negative) Urine Bilirubin Negative (Negative) Urine Urobilinogen 2.0 (<2.0) mg/dL Ur Leukocyte Esterase Negative (Negative) Urine RBC 2 (0-5) /hpf Urine WBC 3 (0-5) /hpf Ur Squamous Epith Cells 4 (0-4) /hpf Urine Bacteria Few H (None) /hpf Urine Mucus Few H (None) /hpf 10/24/17 Range/Units 21:26 WBC (4.0-11.0) k/uL RBC (3.80-5.40) m/uL Hgb (11.4-16.0) gm/dL Hct (34.0-46.0) % MCV (80.0-100.0) fL MCH (25.0-35.0) pg MCHC (31.0-37.0) g/dL RDW (11.5-15.5) % Plt Count (150-450) k/uL Neutrophils % % Lymphocytes % % Monocytes % % Eosinophils % % Basophils % % Neutrophils # (1.3-7.7) k/uL Lymphocytes # (1.0-4.8) k/uL Monocytes # (0-1.0) k/uL Eosinophils # (0-0.7) k/uL Basophils # (0-0.2) k/uL PT 9.8 (9.0-12.0) sec INR 1.0 (<1.2) Sodium (137-145) mmol/L Potassium (3.5-5.1) mmol/L Chloride (98-107) mmol/L Carbon Dioxide (22-30) mmol/L Anion Gap mmol/L BUN (7-17) mg/dL Creatinine (0.52-1.04) mg/dL Est GFR (MDRD) Af Amer (>60 ml/min/1.73 sqM) Est GFR (MDRD) Non-Af (>60 ml/min/1.73 sqM) Glucose (74-99) mg/dL Calcium (8.4-10.2) mg/dL Total Bilirubin (0.2-1.3) mg/dL AST (14-36) U/L ALT (9-52) U/L Alkaline Phosphatase (38-126) U/L Total Protein (6.3-8.2) g/dL Albumin (3.5-5.0) g/dL Amylase (30-110) U/L Lipase (23-300) U/L Urine Color Urine Appearance (Clear) Urine pH (5.0-8.0) Ur Specific [place] (1.001-1.035) Urine Protein (Negative) Urine Glucose (UA) (Negative) Urine Ketones (Negative) Urine Blood (Negative) Urine Nitrite (Negative) Urine Bilirubin (Negative) Urine Urobilinogen (<2.0) mg/dL Ur Leukocyte Esterase (Negative) Urine RBC (0-5) /hpf Urine WBC (0-5) /hpf Ur Squamous Epith Cells (0-4) /hpf Urine Bacteria (None) /hpf Urine Mucus (None) /hpf Disposition Clinical Impression: Gallstones, Leg pain, Right upper quadrant pain, Hypertension, Disposition: HOME SELF-CARE Condition: Good Instructions: Abdominal Pain (ED) Additional Instructions: She will follow-up with her OB doctor at [facility] since he had a history of firm a collection she has appointment with her next week Referrals: Les Bartholomew MD [Primary Care Provider] - 1-2 days Octavio Schmidt MD [STAFF PHYSICIAN] - 1-2 days
--- NOTE | 2017-10-24 23:09 | US ---
EXAMINATION TYPE: US abdomen limited DATE OF EXAM: 10/24/2017 COMPARISON: NONE CLINICAL HISTORY: Pain. RUQ pain exam limitations due to patient 37 weeks . EXAM MEASUREMENTS: Liver Length: 16.8 cm Gallbladder Wall: 0.3 cm CBD: 0.33 cm Right Kidney: 9.9 x 3.8 x 4.5 cm Pancreas: Obscured by bowel gas Liver: wnl Gallbladder: appears to have low level echoes within Evidence for sonographic Campbell's sign: No CBD: wnl Right Kidney: No hydronephrosis or masses seen IMPRESSION: There is echogenic bile. I suspect small gallstones at the gallbladder neck. No dilated d ucts. Gallbladder is not dilated. I do not suspect cholecystitis.
--- NOTE | 2017-10-24 23:10 | US ---
EXAMINATION TYPE: US venous doppler duplex LE LT DATE OF EXAM: 10/24/2017 10:24 PM COMPARISON: NONE CLINICAL HISTORY: Pain. Left leg pain SIDE PERFORMED: TECHNIQUE: The lower extremity deep venous system is examined utilizing real time linear array sonog giovani with graded compression, doppler sonography and color-flow sonography. VESSELS IMAGED: External Iliac Vein (EIV) Common Femoral Vein Deep Femoral Vein Greater Saphenous Vein * Femoral Vein Popliteal Vein Small Saphenous Vein * Proximal Calf Veins (* superficial vessels) Left Leg: Negative for DVT No evidence of DVT left leg. IMPRESSION: Negative exam. No evidence of deep venous thrombosis in the left leg.
[2017-10-25 00:13] VITALS: BP 132/58; PULSE 70; TEMP 97.4
== END 2017-10-25 00:12 | disposition home or self-care (01) ==
LOC: EC 20:49
DX: O99.613 Diseases of the digestive system complicating pregnancy, third trimester (principal); K80.80 Other cholelithiasis without obstruction; O16.3 Unspecified maternal hypertension, third trimester; O99.89 Other specified diseases and conditions complicating pregnancy, childbirth and the puerperium; M79.662 Pain in left lower leg; O99.353 Diseases of the nervous system complicating pregnancy, third trimester; G40.909 Epilepsy, unspecified, not intractable, without status epilepticus; Z3A.37 37 weeks gestation of pregnancy; Z79.82 Long term (current) use of aspirin; Z79.899 Other long term (current) drug therapy; Z88.0 Allergy status to penicillin; Z88.1 Allergy status to other antibiotic agents; Z88.3 Allergy status to other anti-infective agents; Z91.011 Allergy to milk products; Z91.018 Allergy to other foods; Z91.048 Other nonmedicinal substance allergy status
CPT/HCPCS: 36415; 76705; 80053; 81001; 82150; 83690; 85025; 85610; 96360; 96361; 99284

== ENCOUNTER 2017-10-27 11:03 | Outpatient (CLI) | payer OTHER ==
[2017-10-27 12:57] VITALS: BP 145/74; PULSE 69; RESP 18; TEMP 97.5
--- NOTE | 2017-10-27 15:49 | P.MSEPDOC ---
Presenting Problems - Arrival Data Date of Arrival on Unit: 10/27/17 Time of Arrival on Unit: 11:00 Mode of Transport: Ambulatory - Complaint OB-Reason for Admission/Chief Complaint: NST Comment: auras, hx of seizures/epilepsy. Medical History - Information : 4 Para: 2 Term: 1 : 1 Abortions: Spontaneous or Elective: 1 Number of Living Children: 2 - Gestational Age Gestational Age by SHERI (wks/days): 37 Weeks and 3 Days - History Comment: hx of epilepsy - states 45+ seizures during . pt states she still drives qhen questioned. informed that she should not drive due to seizures and normally should not drive for 6 mos post last seizure. pt states she is not aware. 3 cm thyroid nodule, cholystasis, amemia, Review of Systems - Review of Systems Constitutional: No problems Breast: No problems ENT: No problems Cardiovascular: No problems Respiratory: No problems Gastrointestinal: No problems Genitourinary: No problems Musculoskeletal: No problems Neurological: No problems Skin: No problems Comment: hx of seizures/epilepsy (keppra 1000 mg bid) Vital Signs - Temperature Temperature: 97.5 F Temperature Source: Temporal Artery Scan - Pulse Right Brachial Pulse Rate: 69 Pulse Assessment Method: Automatic Cuff - Respirations Respiratory Rate: 18 Oxygen Delivery Method: Room Air O2 Sat by Pulse Oximetry: 98 - Blood Pressure Right Arm Blood Pressure: 145/74 Blood Pressure Mean: 97 Blood Pressure Source: Automatic Cuff Medical Screen Scoring (Pre) - Cervical Exam Dilation: Exam Deferred Effacement: Exam Deferred Membranes: Intact - Uterine Contractions Frequency: N/A Duration: N/A Intensity: N/A - Maternal Vital Signs Maternal Temperature: N/A Maternal Blood Pressure: Systolic >139 = 2 Signs of Preeclampsia: Epigastric Pain = 1 Maternal Respirations: N/A - Pain Assessment Pain Location and Character: Right, Upper, Abdomen Pain Scale Used: Numeric (1 - 10) Pain Intensity: 4 Pain Description: *Acute Pain Frequency: Constant Pain Duration: 4 Pain Duration Units: Days Pain Behavior: None Exhibited Pain Aggravating Factors: Activity Non-Pharmacological Interventions: Position/Reposition - Maternal Trauma Maternal Trauma: N/A - Assessment Baseline FHR: 145 Heart Rate - NICHD Category: Category I (Normal) = 0 NST: Reactive Position: N/A Station: N/A - Total Score Total Score (Pre): 3 - Level of Risk Level of Risk: Low (0-5) Physician Notification (Pre) - Physician Notified Spoke With: cindy Rai Order Received: Yes - Notification Comment Comment: dr eason office called. given report of pt admission c/o aura and hx of seizure activity, cholestasis, nst, pt statement of b/p elevation at home and eval for pih and all vitals. to disch home. to keep next sched appt [facility]. Medical Screen Scoring (Post) - Post Treatment Level of Risk Post Treatment Level of Risk: Low (0-5) Physician Notification (Post) - Physician Notified Physician Notified Date: 10/27/17 Physician Notified Time: 11:56 Physician/Practitioner Notified:: cindy Rai Order Received: Yes - Notification Comment Comment: disch home Disposition - Disposition OB Disposition: Discharge to home Discharge Date: 10/27/17 Discharge Time: 12:20 I agree with the RN Medical Screening Exam: Yes Risk & Benefit of care provided described in d/c instruction: Yes Diagnosis: LIVER AND BILIARY TRACT DISORD IN , UNSP TRIMESTER
== END 2017-10-27 12:20 | disposition home or self-care (01) ==
LOC: FBPOP 11:03
PROVIDERS: ATTEND Obstetrics & Gynecology
DX: O26.613 Liver and biliary tract disorders in pregnancy, third trimester (principal); O26.893 Other specified pregnancy related conditions, third trimester; Z86.69 Personal history of other diseases of the nervous system and sense organs; Z3A.37 37 weeks gestation of pregnancy
CPT/HCPCS: 59025; G0463; 99213

== ENCOUNTER 2017-11-15 19:33 | Emergency (ER) | payer OTHER ==
[2017-11-15 19:47] VITALS: PULSE 71
[2017-11-15] MEDS ORDERED: SODIUM CHLORIDE 0.9% 1,000 ML IV ONE (20:50)
[2017-11-15] MEDS ORDERED: hydrALAZINE HCL 20 MG/ML 1 ML VIAL IVP STA (20:51)
[2017-11-15] MEDS ORDERED: SODIUM CHLORIDE 0.9% 1,000 ML IV SCH (21:00)
[2017-11-15 21:26] LABS: Basophils % (A) 1 %; Eosinophils # (A) 0.4 k/uL (0-0.7); Eosinophils % (A) 5 %; HCT 37.2 % (34.0-46.0); Lymphocytes # (A) 1.9 k/uL (1.0-4.8); Lymphocytes % (A) 23 %; MCH 28.7 pg (25.0-35.0); MCHC 32.3 g/dL (31.0-37.0); MCV 89.1 fL (80.0-100.0); Mean Platelet Volume 7.4; Monocytes # (A) 0.5 k/uL (0-1.0); Monocytes % (A) 6 %; Neutrophils # (A) 5.3 k/uL (1.3-7.7); Neutrophils % (A) 64 %; Platelet Count 298 k/uL (150-450); RBC 4.18 m/uL (3.80-5.40); RDW 13.6 % (11.5-15.5); WBC 8.3 k/uL (4.0-11.0)
[2017-11-15] MEDS ORDERED: diphenhydrAMINE 50 MG/ML 1 ML VIAL IVP STA (21:28)
[2017-11-15] MEDS ORDERED: METOCLOPRAMIDE 5 MG/ML 2 ML VIAL IVP STA (21:30)
[2017-11-15 21:33] LABS: Appearance,Urine Clear (Clear); Bacteria,Urine Rare /hpf; Bilirubin,Urine Negative (Negative); Blood,Urine Moderate (Negative); Color,Urine Yellow; Glucose,Urine (UA) Negative (Negative); Hyaline Casts,Urine 1 /lpf (0-2); Ketones,Urine Negative (Negative); Leukocyte Esterase,Urine Negative (Negative); Mucus,Urine Rare /hpf; PH, Urine 6.5 (5.0-8.0); Protein,Urine Negative (Negative); RBC,Urine 3 /hpf (0-5); Specific Gravity,Urine 1.015 (1.001-1.035); Squamous Epithelial Cell,Urine 1 /hpf (0-4); Urobilinogen,Urine <2.0 mg/dL (<2.0); WBC,Urine 2 /hpf (0-5)
[2017-11-15 21:37] LABS: ALT 29 U/L (9-52); AST 23 U/L (14-36); Alkaline Phosphatase 95 U/L (38-126); Anion Gap 7 mmol/L; Blood Urea Nitrogen 13 mg/dL (7-17); Calcium 9.2 mg/dL (8.4-10.2); Carbon Dioxide 26 mmol/L (22-30); Chloride 105 mmol/L (98-107); Glucose 79 mg/dL (74-99); LDH 446 U/L (313-618); Potassium 4.2 mmol/L (3.5-5.1); Sodium 138 mmol/L (137-145); Total Bilirubin 0.2 mg/dL (0.2-1.3); Total Protein 5.7 g/dL (6.3-8.2)
--- NOTE | 2017-11-15 21:51 | ED ---
General Adult HPI - General Chief complaint: Recheck/Abnormal Lab/Rx Stated complaint: elevated bp; recent Time Seen by Provider: 11/15/17 20:27 Source: patient, RN notes reviewed, old records reviewed Mode of arrival: ambulatory Limitations: no limitations - History of Present Illness Initial comments: This patient is a 22-year-old female presents emergency Department chief complaint of headache and high blood pressure. Patient reports that she has C- section approximately one week ago. This patient reports she was status epilepticus and preeclamptic with this and she delivered at [facility] with the specialty high risk team. She relates she took her blood pressures earlier today and they were 180/90. She called her OB and was told to come here. She denies any other symptoms besides headache. She reports that her C section scare is healing well. She relates that the headache was continuing despite taking her [place]. She is breast feeding. - Related Data Home Medications Medication Instructions Recorded Confirmed [id number] Acid 1 cap PO DAILY 08/16/17 11/15/17 [-U Capsule (formulary)] levETIRAcetam [Keppra] 1,000 mg PO BID 08/16/17 11/15/17 HYDROcodone/APAP 5-325MG [[place] 1 tab PO Q6H PRN 11/15/17 11/15/17 5-325] Ibuprofen [Motrin] 600 mg PO Q8HR PRN 11/15/17 11/15/17 Allergies Allergy/AdvReac Type Severity Reaction Status Date / Time azithromycin [From Zithromax] Allergy Severe Anaphylaxis Verified 11/15/17 20:53 Bleach (Sodium Hypochlorite) Allergy Itching Verified 11/15/17 20:53 carrot Allergy Anaphylaxis Verified 11/15/17 20:53 cephalexin [From Keflex] Allergy Swelling Verified 11/15/17 20:53 fluconazole Allergy Swelling Verified 11/15/17 20:53 latex Allergy Anaphylaxis Verified 11/15/17 20:53 nystatin Allergy Swelling Verified 11/15/17 20:53 Penicillins Allergy Anaphylaxis Verified 11/15/17 20:53 tomato Allergy Rash/Hives Verified 11/15/17 20:53 milk AdvReac Nausea & Verified 11/15/17 20:53 Vomiting & Diarrhea Review of Systems ROS Statement: Those systems with pertinent positive or pertinent negative responses have been documented in the HPI. ROS Other: All systems not noted in ROS Statement are negative. Past Medical History Past Medical History: Seizure Disorder Additional Past Medical History / Comment(s): PT IS , SYNCOPE, HYPOTENSION, tachycardia, seizures, anemia, eclampsia, preeclampsia History of Any Multi-Drug Resistant Organisms: None Reported Past Surgical History: Section Past Anesthesia/Blood Transfusion Reactions: No Reported Reaction Past Psychological History: No Psychological Hx Reported Smoking Status: Former smoker Past Alcohol Use History: None Reported Past Drug Use History: None Reported - Past Family History Father Family Medical History: No Reported History Mother Family Medical History: No Reported History General Exam - General Exam Comments Initial Comments: This is a 22 year old female, no distress. Limitations: no limitations General appearance: alert, in no apparent distress Head exam: Present: atraumatic, normocephalic, normal inspection Eye exam: Present: normal appearance, PERRL, EOMI. Absent: scleral icterus, conjunctival injection, periorbital swelling ENT exam: Present: normal exam, mucous membranes moist Neck exam: Present: normal inspection. Absent: tenderness, meningismus, lymphadenopathy Respiratory exam: Present: normal lung sounds bilaterally. Absent: respiratory distress, wheezes, rales, rhonchi, stridor Cardiovascular Exam: Present: regular rate, normal rhythm, normal heart sounds. Absent: systolic murmur, diastolic murmur, rubs, gallop, clicks GI/Abdominal exam: Present: soft, normal bowel sounds. Absent: distended, tenderness, guarding, rebound, rigid Extremities exam: Present: normal inspection, full ROM, normal capillary refill. Absent: tenderness, pedal edema, joint swelling, calf tenderness Back exam: Present: normal inspection Neurological exam: Present: alert, oriented X3, CN II-XII intact Psychiatric exam: Present: normal affect, normal mood Skin exam: Present: warm, dry, intact, normal color. Absent: rash Course Vital Signs 11/15/17 11/15/17 11/15/17 19:44 21:23 22:54 Temperature 98.5 F 97.7 F Pulse Rate 71 71 71 Respiratory 20 16 18 Rate Blood Pressure 156/92 139/83 135/75 O2 Sat by Pulse 96 97 97 Oximetry Medical Decision Making - Medical Decision Making Patient is a 22 year old female with one week SP with headache and hypertension. She arrives with BP 156/92. She relates that her BP was higher at home. She was given eclamptic protocol. Paitent UA is normal, no protein. CBC and CMP are within normal limtis. She was given reglan and benadryl and IV fluids for her headache. Before giving hydralazine her BP was 139/83. We did hold on hydralazine at this time. Patient reports her headache is totally diminished with reglan and benadryl. She reports she feels well to go home. She was advised that at this time her BP was stable and no signs of eclampsia at this time. Discussed that she needs to follow up with OBGYN tomorrow for follow up and return parameters discussed. - Lab Data Result diagrams: 11/15/17 21:06 11/15/17 21:06 Lab Results 11/15/17 11/15/17 11/15/17 Range/Units 21:06 21:06 21:06 WBC 8.3 (4.0-11.0) k/uL RBC 4.18 (3.80-5.40) m/uL Hgb 12.0 (11.4-16.0) gm/dL Hct 37.2 (34.0-46.0) % MCV 89.1 (80.0-100.0) fL MCH 28.7 (25.0-35.0) pg MCHC 32.3 (31.0-37.0) g/dL RDW 13.6 (11.5-15.5) % Plt Count 298 (150-450) k/uL Neutrophils % 64 % Lymphocytes % 23 % Monocytes % 6 % Eosinophils % 5 % Basophils % 1 % Neutrophils # 5.3 (1.3-7.7) k/uL Lymphocytes # 1.9 (1.0-4.8) k/uL Monocytes # 0.5 (0-1.0) k/uL Eosinophils # 0.4 (0-0.7) k/uL Basophils # 0.0 (0-0.2) k/uL Sodium 138 (137-145) mmol/L Potassium 4.2 (3.5-5.1) mmol/L Chloride 105 (98-107) mmol/L Carbon Dioxide 26 (22-30) mmol/L Anion Gap 7 mmol/L BUN 13 (7-17) mg/dL Creatinine 0.50 L (0.52-1.04) mg/dL Est GFR (MDRD) Af Amer >60 (>60 ml/min/1.73 sqM) Est GFR (MDRD) Non-Af >60 (>60 ml/min/1.73 sqM) Glucose 79 (74-99) mg/dL Uric Acid 6.0 (3.7-7.4) mg/dL Calcium 9.2 (8.4-10.2) mg/dL Magnesium 1.7 (1.6-2.3) mg/dL Total Bilirubin 0.2 (0.2-1.3) mg/dL AST 23 (14-36) U/L ALT 29 (9-52) U/L Alkaline Phosphatase 95 (38-126) U/L Lactate Dehydrogenase 446 (313-618) U/L Total Protein 5.7 L (6.3-8.2) g/dL Albumin 3.0 L (3.5-5.0) g/dL Urine Color Yellow Urine Appearance Clear (Clear) Urine pH 6.5 (5.0-8.0) Ur Specific [place] 1.015 (1.001-1.035) Urine Protein Negative (Negative) Urine Glucose (UA) Negative (Negative) Urine Ketones Negative (Negative) Urine Blood Moderate H (Negative) Urine Nitrite Negative (Negative) Urine Bilirubin Negative (Negative) Urine Urobilinogen <2.0 (<2.0) mg/dL Ur Leukocyte Esterase Negative (Negative) Urine RBC 3 (0-5) /hpf Urine WBC 2 (0-5) /hpf Ur Squamous Epith Cells 1 (0-4) /hpf Urine Bacteria Rare H (None) /hpf Hyaline Casts 1 (0-2) /lpf Urine Mucus Rare H (None) /hpf Disposition Clinical Impression: Headache, Status post Disposition: HOME SELF-CARE Condition: Stable Instructions: Acute Headache (ED) Additional Instructions: Patient has a follow-up with [facility] MANAGER tomorrow. Return to the emergency department if any alarming signs or symptoms occur. Referrals: Les Bartholomew MD [Primary Care Provider] - 1-2 days Time of Disposition: 22:30
[2017-11-15 22:55] VITALS: BP 135/75; RESP 18; TEMP 97.7
== END 2017-11-15 22:54 | disposition home or self-care (01) ==
LOC: EC 19:33
DX: R51 Headache (principal); G40.909 Epilepsy, unspecified, not intractable, without status epilepticus; Z87.891 Personal history of nicotine dependence; Z79.899 Other long term (current) drug therapy; Z88.0 Allergy status to penicillin; Z88.1 Allergy status to other antibiotic agents; Z91.040 Latex allergy status; Z91.011 Allergy to milk products; Z91.018 Allergy to other foods; Z91.09 Other allergy status, other than to drugs and biological substances; Z88.8 Allergy status to other drugs, medicaments and biological substances; Z53.8 Procedure and treatment not carried out for other reasons; Z98.890 Other specified postprocedural states
CPT/HCPCS: 36415; 80053; 83615; 83735; 84550; 85025; 81001; 99283; 96374; 96375; 96361; J1200; J2765

== ENCOUNTER 2018-06-17 22:57 | Emergency (ER) | payer OTHER ==
[2018-06-17 23:02] VITALS: RESP 16
--- NOTE | 2018-06-17 23:39 | ED ---
General Adult HPI - General Source: patient, RN notes reviewed Mode of arrival: ambulatory Limitations: no limitations <Liliana Jeffries - Last Filed: 06/18/18 01:00> <Rafi oNonan - Last Filed: 06/19/18 08:32> - General Chief complaint: Recheck/Abnormal Lab/Rx Stated complaint: abnormal labs Time Seen by Provider: 06/17/18 23:17 - History of Present Illness Initial comments: This is a 23-year-old female who presents to the emergency department with a multitude of complaints. Patient states that she sees Dr. Carlson. She states that a year and a half ago a thyroid nodule was identified and Dr. Carlson who has been following up with this. She states that she has an upcoming radioactive study. Patient states that she also has history of tachycardia and takes metoprolol. Dr. Carlson believes this is related to patient's thyroid. Patient states that this evening she developed bilateral leg swelling, blurred vision and right upper quadrant abdominal pain. Patient states she also has a history of elevated liver enzymes. Patient states that she contacted Dr. Carlson who recommended that she come to the emergency department for further evaluation. Patient states she was told she should have a d-dimer drawn. Patient denies any recent fevers or chills, shortness of breath, nausea or vomiting, diarrhea or constipation. Patient states that she is not currently . (Liliana Jeffries) - Related Data Home Medications Medication Instructions Recorded Confirmed Pig-Bafw-Dfynz Acid 1 cap PO DAILY 08/16/17 11/15/17 [-U Capsule (formulary)] levETIRAcetam [Keppra] 1,000 mg PO BID 08/16/17 11/15/17 HYDROcodone/APAP 5-325MG [[place] 1 tab PO Q6H PRN 11/15/17 11/15/17 5-325] Ibuprofen [Motrin] 600 mg PO Q8HR PRN 11/15/17 11/15/17 Allergies Allergy/AdvReac Type Severity Reaction Status Date / Time azithromycin [From Zithromax] Allergy Severe Anaphylaxis Verified 06/17/18 23:02 Bleach (Sodium Hypochlorite) Allergy Itching Verified 06/17/18 23:02 carrot Allergy Anaphylaxis Verified 06/17/18 23:02 cephalexin [From Keflex] Allergy Swelling Verified 06/17/18 23:02 fluconazole Allergy Swelling Verified 06/17/18 23:02 latex Allergy Anaphylaxis Verified 06/17/18 23:02 nystatin Allergy Swelling Verified 06/17/18 23:02 Penicillins Allergy Anaphylaxis Verified 06/17/18 23:02 tomato Allergy Rash/Hives Verified 06/17/18 23:02 milk AdvReac Nausea & Verified 06/17/18 23:02 Vomiting & Diarrhea Review of Systems ROS Other: All systems not noted in ROS Statement are negative. <Liliana Jeffries - Last Filed: 06/18/18 01:00> ROS Other: All systems not noted in ROS Statement are negative. <Rafi Noonan - Last Filed: 06/19/18 08:32> ROS Statement: Those systems with pertinent positive or pertinent negative responses have been documented in the HPI. Past Medical History Past Medical History: Seizure Disorder Additional Past Medical History / Comment(s): PT IS , SYNCOPE, HYPOTENSION, tachycardia, seizures, anemia, eclampsia, preeclampsia History of Any Multi-Drug Resistant Organisms: None Reported Past Surgical History: Section Past Anesthesia/Blood Transfusion Reactions: No Reported Reaction Past Psychological History: No Psychological Hx Reported Smoking Status: Former smoker Past Alcohol Use History: None Reported Past Drug Use History: None Reported - Past Family History Father Family Medical History: No Reported History Mother Family Medical History: No Reported History <Liliana Jeffries - Last Filed: 06/18/18 01:00> General Exam Limitations: no limitations <Liliana Jeffries - Last Filed: 06/18/18 01:00> <Rafi Noonan - Last Filed: 06/19/18 08:32> - General Exam Comments Initial Comments: General: Awake and alert, well-developed; in no apparent distress. HEENT: Head atraumatic, normocephalic. Pupils are equal, round and reactive to light. Extraocular movements intact. Oropharynx moist without erythema or exudate. Neck: Supple. Normal ROM. Cardiovascular: Regular rate and rhythm. No murmurs, rubs or gallops. Chest symmetrical. Respiratory: Lungs clear to auscultation bilaterally. No wheezes, rales or rhonchi. Normal respiratory effort with no use of accessory muscles. Abdomen: Soft, non-distended. Mild tenderness without guarding right upper quadrant. Normal bowel sounds in all 4 quadrants. Musculoskeletal: Normal range of motion bilateral upper and lower extremities. No bilateral lower extremity swelling is noted. There is mild tenderness on palpation of the proximal posterior right calf. Pedal pulses are 2+ equal and palpable bilaterally. Skin: [place], warm and dry without rashes or lesions. Neurological: Alert and oriented x3. CN II-XII grossly intact. Speech is fluent and answers are appropriate. No focal neuro deficits. Psychiatric: Normal mood and affect. No overt signs of depression or anxiety noted. (Liliana Jeffries) Vital Signs 06/17/18 06/18/18 22:59 01:14 Temperature 98.2 F 98.5 F Pulse Rate 88 80 Respiratory 16 16 Rate Blood Pressure 151/73 117/66 O2 Sat by Pulse 98 99 Oximetry Medical Decision Making - Lab Data Result diagrams: 06/17/18 23:22 06/17/18 23:22 <Liliana Jeffries - Last Filed: 06/18/18 01:00> - Lab Data Result diagrams: 06/17/18 23:22 06/17/18 23:22 <Rafi Noonan - Last Filed: 06/19/18 08:32> - Medical Decision Making This is a 23-year-old female who presents to the emergency department with multiple complaints. Patient states that she is being worked up for thyroid issues by Dr. Carlson. She states that today she developed bilateral lower extremity swelling, right upper quadrant abdominal pain and blurred vision. Patient called Dr. Carlson who recommended she come to the emergency department for further evaluation. Patient states she was told to have a d-dimer drawn. On physical examination, no lower extremity edema is identified. Patient does have mild tenderness on palpation of the right calf. D-dimer is normal at 0.57. CBC, UA and coags are within normal limits. CMP did reveal a total protein at 5.6 and albumin of 3.2, however on review patient's previous laboratory studies this is consistent. Her vital signs have been stable and she is in no acute distress. Patient will be discharged home at this time with recommendation to follow-up with Dr. Carlson in the morning. Patient is in agreement with plan and voices understanding. All questions answered. Case was discussed with attending physician, Dr. Noonan. (Liliana Jeffries) I saw this patient in conjunction with the physician accounting administrative assistant. I performed independent history and physical exam. Agree with case management. (Rafi Noonan) - Lab Data Lab Results 06/17/18 06/17/18 06/17/18 Range/Units 23:22 23:22 23:22 WBC 5.2 (3.8-10.6) k/uL RBC 4.38 (3.80-5.40) m/uL Hgb 12.2 (11.4-16.0) gm/dL Hct 37.5 (34.0-46.0) % MCV 85.5 (80.0-100.0) fL MCH 27.8 (25.0-35.0) pg MCHC 32.4 (31.0-37.0) g/dL RDW 12.6 (11.5-15.5) % Plt Count 230 (150-450) k/uL Neutrophils % 45 % Lymphocytes % 37 % Monocytes % 11 % Eosinophils % 3 % Basophils % 1 % Neutrophils # 2.4 (1.3-7.7) k/uL Lymphocytes # 1.9 (1.0-4.8) k/uL Monocytes # 0.6 (0-1.0) k/uL Eosinophils # 0.1 (0-0.7) k/uL Basophils # 0.0 (0-0.2) k/uL PT 11.0 (9.0-12.0) sec INR 1.1 (<1.2) APTT 22.9 (22.0-30.0) sec D-Dimer 0.57 (<0.60) mg/L FEU Sodium 139 (137-145) mmol/L Potassium 4.0 (3.5-5.1) mmol/L Chloride 109 H (98-107) mmol/L Carbon Dioxide 28 (22-30) mmol/L Anion Gap 2 mmol/L BUN 11 (7-17) mg/dL Creatinine 0.45 L (0.52-1.04) mg/dL Est GFR (CKD-EPI)AfAm >90 (>60 ml/min/1.73 sqM) Est GFR (CKD-EPI)NonAf >90 (>60 ml/min/1.73 sqM) Glucose 90 (74-99) mg/dL Calcium 9.3 (8.4-10.2) mg/dL Total Bilirubin 0.2 (0.2-1.3) mg/dL AST 33 (14-36) U/L ALT 87 H (9-52) U/L Alkaline Phosphatase 78 (38-126) U/L Total Protein 5.6 L (6.3-8.2) g/dL Albumin 3.2 L (3.5-5.0) g/dL Amylase 35 (30-110) U/L Lipase 105 (23-300) U/L Urine Color Urine Appearance (Clear) Urine pH (5.0-8.0) Ur Specific [place] (1.001-1.035) Urine Protein (Negative) Urine Glucose (UA) (Negative) Urine Ketones (Negative) Urine Blood (Negative) Urine Nitrite (Negative) Urine Bilirubin (Negative) Urine Urobilinogen (<2.0) mg/dL Ur Leukocyte Esterase (Negative) Urine RBC (0-5) /hpf Urine WBC (0-5) /hpf Ur Squamous Epith Cells (0-4) /hpf Amorphous Sediment (None) /hpf Urine Mucus (None) /hpf Urine HCG, Qual (Not Detectd) 06/17/18 06/17/18 Range/Units 23:43 23:43 WBC (3.8-10.6) k/uL RBC (3.80-5.40) m/uL Hgb (11.4-16.0) gm/dL Hct (34.0-46.0) % MCV (80.0-100.0) fL MCH (25.0-35.0) pg MCHC (31.0-37.0) g/dL RDW (11.5-15.5) % Plt Count (150-450) k/uL Neutrophils % % Lymphocytes % % Monocytes % % Eosinophils % % Basophils % % Neutrophils # (1.3-7.7) k/uL Lymphocytes # (1.0-4.8) k/uL Monocytes # (0-1.0) k/uL Eosinophils # (0-0.7) k/uL Basophils # (0-0.2) k/uL PT (9.0-12.0) sec INR (<1.2) APTT (22.0-30.0) sec D-Dimer (<0.60) mg/L FEU Sodium (137-145) mmol/L Potassium (3.5-5.1) mmol/L Chloride (98-107) mmol/L Carbon Dioxide (22-30) mmol/L Anion Gap mmol/L BUN (7-17) mg/dL Creatinine (0.52-1.04) mg/dL Est GFR (CKD-EPI)AfAm (>60 ml/min/1.73 sqM) Est GFR (CKD-EPI)NonAf (>60 ml/min/1.73 sqM) Glucose (74-99) mg/dL Calcium (8.4-10.2) mg/dL Total Bilirubin (0.2-1.3) mg/dL AST (14-36) U/L ALT (9-52) U/L Alkaline Phosphatase (38-126) U/L Total Protein (6.3-8.2) g/dL Albumin (3.5-5.0) g/dL Amylase (30-110) U/L Lipase (23-300) U/L Urine Color Yellow Urine Appearance Cloudy H (Clear) Urine pH 7.0 (5.0-8.0) Ur Specific [place] 1.027 (1.001-1.035) Urine Protein Trace H (Negative) Urine Glucose (UA) Negative (Negative) Urine Ketones Negative (Negative) Urine Blood Negative (Negative) Urine Nitrite Negative (Negative) Urine Bilirubin Negative (Negative) Urine Urobilinogen 4.0 (<2.0) mg/dL Ur Leukocyte Esterase Negative (Negative) Urine RBC 4 (0-5) /hpf Urine WBC 7 H (0-5) /hpf Ur Squamous Epith Cells 7 H (0-4) /hpf Amorphous Sediment Rare H (None) /hpf Urine Mucus Few H (None) /hpf Urine HCG, Qual Not Detected (Not Detectd) Disposition Is patient prescribed a controlled substance at d/c from ED?: No Time of Disposition: 01:01 <Liliana Jeffries - Last Filed: 06/18/18 01:00> <Rafi Noonan - Last Filed: 06/19/18 08:32> Clinical Impression: Leg swelling Disposition: HOME SELF-CARE Condition: Good Instructions: Leg Edema (ED) Additional Instructions: Please follow up with primary care provider within 1-2 days. Return to emergency department if symptoms should worsen or any concerns arise. Referrals: Agnes Coleman MD [Primary Care Provider] - 1-2 days
[2018-06-17 23:58] LABS: Basophils % (A) 1 %; Eosinophils # (A) 0.1 k/uL (0-0.7); Eosinophils % (A) 3 %; HCT 37.5 % (34.0-46.0); HGB 12.2 gm/dL (11.4-16.0); Lymphocytes # (A) 1.9 k/uL (1.0-4.8); Lymphocytes % (A) 37 %; MCH 27.8 pg (25.0-35.0); MCHC 32.4 g/dL (31.0-37.0); MCV 85.5 fL (80.0-100.0); Mean Platelet Volume 7.2; Monocytes # (A) 0.6 k/uL (0-1.0); Monocytes % (A) 11 %; Neutrophils # (A) 2.4 k/uL (1.3-7.7); Neutrophils % (A) 45 %; Platelet Count 230 k/uL (150-450); RBC 4.38 m/uL (3.80-5.40); RDW 12.6 % (11.5-15.5); WBC 5.2 k/uL (3.8-10.6)
[2018-06-18 00:11] LABS: D-Dimer 0.57 mg/L FEU (<0.60); INR 1.1 (<1.2); Partial Thromboplastin Time 22.9 sec (22.0-30.0)
[2018-06-18 00:12] LABS: ALT 87 U/L (9-52); AST 33 U/L (14-36); Albumin 3.2 g/dL (3.5-5.0); Alkaline Phosphatase 78 U/L (38-126); Amylase 35 U/L (30-110); Anion Gap 2 mmol/L; Blood Urea Nitrogen 11 mg/dL (7-17); Calcium 9.3 mg/dL (8.4-10.2); Carbon Dioxide 28 mmol/L (22-30); Chloride 109 mmol/L (98-107); Glucose 90 mg/dL (74-99); Lipase 105 U/L (23-300); Sodium 139 mmol/L (137-145); Total Bilirubin 0.2 mg/dL (0.2-1.3); Total Protein 5.6 g/dL (6.3-8.2)
[2018-06-18 00:33] LABS: Amorphous Sediment,Urine Rare /hpf; Appearance,Urine Cloudy (Clear); Bilirubin,Urine Negative (Negative); Blood,Urine Negative (Negative); Color,Urine Yellow; Glucose,Urine (UA) Negative (Negative); Ketones,Urine Negative (Negative); Leukocyte Esterase,Urine Negative (Negative); Mucus,Urine Few /hpf; Nitrite,Urine Negative (Negative); Protein,Urine Trace (Negative); RBC,Urine 4 /hpf (0-5); Specific Gravity,Urine 1.027 (1.001-1.035); Squamous Epithelial Cell,Urine 7 /hpf (0-4); WBC,Urine 7 /hpf (0-5)
[2018-06-18 01:16] VITALS: BP 117/66; PULSE 80; TEMP 98.5
== END 2018-06-18 01:16 | disposition home or self-care (01) ==
LOC: EC 22:57
DX: M79.89 Other specified soft tissue disorders (principal); R10.11 Right upper quadrant pain; H53.8 Other visual disturbances; G40.909 Epilepsy, unspecified, not intractable, without status epilepticus; Z87.891 Personal history of nicotine dependence; Z79.899 Other long term (current) drug therapy; Z88.0 Allergy status to penicillin; Z88.1 Allergy status to other antibiotic agents; Z91.011 Allergy to milk products; Z91.018 Allergy to other foods; Z91.048 Other nonmedicinal substance allergy status
CPT/HCPCS: 36415; 80053; 81001; 81025; 82150; 83690; 85025; 85379; 85610; 85730; 99283

== ENCOUNTER → 2018-06-18 | Outpatient (CLI) | payer OTHER ==
--- NOTE | 2018-06-18 15:49 | CT ---
EXAMINATION TYPE: CT brain wo con DATE OF EXAM: 06/18/2018 COMPARISON: 01/31/2016 INDICATION: Left sided weakness today. History of epilepsy. DLP: 1162.8 mGycm, Automated exposure control for dose reduction was used. CONTRAST: None CT of the brain is performed utilizing 3 mm thick sections through the posterior fossa and 3 mm thick sections through the remaining calvarium. Study is performed within 24 hours of arrival to the hosp ital. No abnormal hyperdensity is present to suggest an acute intracranial hemorrhage. No mass lesion is evident. No acute infarcts are evident. Ventricles and sulci are appropriate for the patient age. There is a retention cyst within the right maxillary sinus. IMPRESSIONS: 1. No acute intracranial process. 2. Right maxillary retention cyst. 3. No significant interval change.
== END | disposition home or self-care (01) ==
LOC: RADCTMAIN 15:12
PROVIDERS: ATTEND Nurse Practitioner Family
DX: M62.89 Other specified disorders of muscle (principal); R20.2 Paresthesia of skin; R20.0 Anesthesia of skin
CPT/HCPCS: 70450

== ENCOUNTER → 2018-06-21 | Outpatient (CLI) | payer OTHER ==
--- NOTE | 2018-06-21 15:45 | US ---
EXAMINATION TYPE: US thyroid st tissue head/neck DATE OF EXAM: 06/21/2018 COMPARISON: US CLINICAL HISTORY: E04.1 thyroid nodule, lymphadenopathy. GLAND SIZE: Right Lobe: 5.8 x 1.9 x 2.4 cm Overall Parenchyma: heterogenous Left Lobe: 5.5 x 2.0 x 2.4 cm Overall Parenchyma: heterogeneous Isthmus Thickness: 0.5 cm NODULES RIGHT: # of nodules measured on right: 0 LEFT: # of nodules measured on left: 1 1. 2.2 X 1.4 x 1.8 cm isoechoic mixed nodule at the mid pole with well-defined margins; . This nod ule is wider than tall and shows intranodular vascularity. Prior size: 2.0 x 1.8 x 1.4 cm ISTHMUS: # of nodules measured in the isthmus: 0 Bilateral neck scanned, no evidence of lymphadenopathy. Patient has palp left lateral neck for years, scanned directly over palpable. There is a 1.9 x 0.3 x 0.7 cm hypoechoic area, no other abnormality noted. IMPRESSION: 1. Large nodule within the left lobe thyroid.
== END | disposition home or self-care (01) ==
LOC: RADUSWWP 15:01
PROVIDERS: ATTEND Family Medicine
DX: E04.1 Nontoxic single thyroid nodule (principal); R59.1 Generalized enlarged lymph nodes
CPT/HCPCS: 76536

== ENCOUNTER 2018-07-15 18:45 | Emergency (ER) | payer OTHER ==
[2018-07-15 19:11] VITALS: TEMP 98.2
[2018-07-15] MEDS ORDERED: SODIUM CHLORIDE 0.9% 500 ML 500 ML IV ONE (19:37)
[2018-07-15] MEDS ORDERED: KETOROLAC 30 MG/ML 1 ML VIAL IVP STA (19:37)
--- NOTE | 2018-07-15 20:02 | ED ---
General Adult HPI - General Source: patient Mode of arrival: ambulatory Limitations: no limitations <Lisa Jose - Last Filed: 07/16/18 03:20> <Aminta Montejo - Last Filed: 07/16/18 06:00> - General Chief complaint: Vaginal Bleeding Stated complaint: Bleeding Time Seen by Provider: 07/15/18 19:22 - History of Present Illness Initial comments: 23-year-old female patient presents to the emergency department today for complaints of heavy vaginal bleeding. Patient states that she woke this morning started having bleeding however the last 3 hours she has gone through 3 super plus tampons. Patient states that she has soaked through her multiple appears of underwear today. Patient states that she is having cramping to the lower abdomen and her back. She states that Patient states she did have an IUD placed in December of this year, has not had a period since insertion. She denies any dizziness or weakness. Denies any hematuria, dysuria, urinary frequency, urinary urgency. Patient is . Patient denies any recent rash, fever, chills, shortness breath, chest pain, diarrhea, constipation, numbness, tingling , dizziness, weakness, headache, visual changes, or any other complaints. (Lisa Jose) - Related Data Home Medications Medication Instructions Recorded Confirmed Wsq-Niiu-Uhepq Acid 1 cap PO DAILY 08/16/17 11/15/17 [-U Capsule (formulary)] levETIRAcetam [Keppra] 1,000 mg PO BID 08/16/17 11/15/17 HYDROcodone/APAP 5-325MG [[place] 1 tab PO Q6H PRN 11/15/17 11/15/17 5-325] Ibuprofen [Motrin] 600 mg PO Q8HR PRN 11/15/17 11/15/17 Allergies Allergy/AdvReac Type Severity Reaction Status Date / Time azithromycin [From Zithromax] Allergy Severe Anaphylaxis Verified 07/15/18 19:10 Bleach (Sodium Hypochlorite) Allergy Itching Verified 07/15/18 19:10 carrot Allergy Anaphylaxis Verified 07/15/18 19:10 cephalexin [From Keflex] Allergy Swelling Verified 07/15/18 19:10 fluconazole Allergy Swelling Verified 07/15/18 19:10 latex Allergy Anaphylaxis Verified 07/15/18 19:10 nystatin Allergy Swelling Verified 07/15/18 19:10 Penicillins Allergy Anaphylaxis Verified 07/15/18 19:10 tomato Allergy Rash/Hives Verified 07/15/18 19:10 milk AdvReac Nausea & Verified 07/15/18 19:10 Vomiting & Diarrhea Review of Systems ROS Other: All systems not noted in ROS Statement are negative. <Lisa Jose - Last Filed: 07/16/18 03:20> ROS Other: All systems not noted in ROS Statement are negative. <Aminta Montejo - Last Filed: 07/16/18 06:00> ROS Statement: Those systems with pertinent positive or pertinent negative responses have been documented in the HPI. Past Medical History Past Medical History: Seizure Disorder Additional Past Medical History / Comment(s): PT IS , SYNCOPE, HYPOTENSION, tachycardia, seizures, anemia, eclampsia, preeclampsia, thyroid cancer, graves disease History of Any Multi-Drug Resistant Organisms: None Reported Past Surgical History: Section Past Anesthesia/Blood Transfusion Reactions: No Reported Reaction Past Psychological History: No Psychological Hx Reported Smoking Status: Former smoker Past Alcohol Use History: None Reported Past Drug Use History: None Reported - Past Family History Father Family Medical History: No Reported History Mother Family Medical History: No Reported History <Lisa Jose - Last Filed: 07/16/18 03:20> General Exam Limitations: no limitations General appearance: alert, in no apparent distress, other (This is a well- developed, well-nourished adult female patient in no acute distress. Vital signs upon presentation are temperature 98.2F, pulse 74, respirations 18, blood pressure 123/67, pulse ox 98% on room air.) Eye exam: Present: normal appearance, PERRL, EOMI. Absent: scleral icterus, conjunctival injection, periorbital swelling ENT exam: Present: normal exam, normal oropharynx, mucous membranes moist Respiratory exam: Present: normal lung sounds bilaterally. Absent: respiratory distress, wheezes, rales, rhonchi, stridor Cardiovascular Exam: Present: regular rate, normal rhythm, normal heart sounds. Absent: systolic murmur, diastolic murmur, rubs, gallop, clicks GI/Abdominal exam: Present: soft, tenderness (left lower quadrant abdominal pain ), normal bowel sounds. Absent: distended, guarding, rebound, rigid External exam: Present: normal external exam Speculum exam: Present: normal speculum exam, vaginal bleeding (Small amount of vaginal bleeding, no clots), other (Did visualize IUD string) By manual exam: Present: normal by manual exam Back exam: Present: normal inspection. Absent: CVA tenderness (R), CVA tenderness (L) Neurological exam: Present: alert, oriented X3, CN II-XII intact Psychiatric exam: Present: normal affect, normal mood Skin exam: Present: warm, dry, intact, normal color. Absent: rash <Lisa Jose - Last Filed: 07/16/18 03:20> Vital Signs 07/15/18 07/15/18 07/15/18 19:06 20:20 22:02 Temperature 98.2 F 98.2 F Pulse Rate 74 69 Respiratory 18 17 17 Rate Blood Pressure 123/67 122/86 O2 Sat by Pulse 98 98 Oximetry Medical Decision Making - Lab Data Result diagrams: 07/15/18 19:59 07/15/18 19:59 - Radiology Data Radiology results: report reviewed <Lisa Jose - Last Filed: 07/16/18 03:20> - Lab Data Result diagrams: 07/15/18 19:59 07/15/18 19:59 <Aminta Montejo - Last Filed: 07/16/18 06:00> - Medical Decision Making 23-year-old female patient presents the emergency department today for complaints of heavy vaginal bleeding. Physical examination does reveal lower abdominal tenderness especially over the left lower quadrant. Pelvic exam did reveal mild dark red blood present in the vault with no evidence of clots. Able to visualize the IUD string. Labs reviewed and are unremarkable. Ultrasound was obtained and showed right ovarian cyst with no evidence of torsion. Uterus and endometrium appeared normal. Patient's vital signs remained stable throughout visit. I did discuss findings and results with the patient. This is her first period after having the IUD inserted. She is instructed to follow-up with her formal service waiter for further evaluation as soon as possible. She is on a waiting list for an appointment at [facility] NATIONAL ACCOUNT DIRECTOR. Return parameters were discussed in detail. She verbalizes understanding and agrees with this plan. (Lisa Jose) I was available for consultation in the emergency department. The history and physical exam were done by the midlevel provider. I was consulted for this patient's care. I reviewed the case with the midlevel provider and based on their presentation of the patient, I agree with the assessment, medical decision making and plan of care as documented. (Aminta Montejo) - Lab Data Lab Results 07/15/18 07/15/18 07/15/18 Range/Units 19:59 19:59 19:59 WBC 6.3 (3.8-10.6) k/uL RBC 4.59 (3.80-5.40) m/uL Hgb 12.8 (11.4-16.0) gm/dL Hct 38.7 (34.0-46.0) % MCV 84.3 (80.0-100.0) fL MCH 27.9 (25.0-35.0) pg MCHC 33.1 (31.0-37.0) g/dL RDW 13.7 (11.5-15.5) % Plt Count 257 (150-450) k/uL Neutrophils % 60 % Lymphocytes % 25 % Monocytes % 9 % Eosinophils % 4 % Basophils % 1 % Neutrophils # 3.7 (1.3-7.7) k/uL Lymphocytes # 1.6 (1.0-4.8) k/uL Monocytes # 0.5 (0-1.0) k/uL Eosinophils # 0.3 (0-0.7) k/uL Basophils # 0.0 (0-0.2) k/uL PT (9.0-12.0) sec INR (<1.2) APTT (22.0-30.0) sec Sodium 140 (137-145) mmol/L Potassium 4.1 (3.5-5.1) mmol/L Chloride 110 H (98-107) mmol/L Carbon Dioxide 25 (22-30) mmol/L Anion Gap 5 mmol/L BUN 10 (7-17) mg/dL Creatinine 0.54 (0.52-1.04) mg/dL Est GFR (CKD-EPI)AfAm >90 (>60 ml/min/1.73 sqM) Est GFR (CKD-EPI)NonAf >90 (>60 ml/min/1.73 sqM) Glucose 73 L (74-99) mg/dL Calcium 9.1 (8.4-10.2) mg/dL Total Bilirubin 0.3 (0.2-1.3) mg/dL AST 24 (14-36) U/L ALT 44 (9-52) U/L Alkaline Phosphatase 86 (38-126) U/L Total Protein 5.8 L (6.3-8.2) g/dL Albumin 3.3 L (3.5-5.0) g/dL Urine Color Urine Appearance (Clear) Urine pH (5.0-8.0) Ur Specific [place] (1.001-1.035) Urine Protein (Negative) Urine Glucose (UA) (Negative) Urine Ketones (Negative) Urine Blood (Negative) Urine Nitrite (Negative) Urine Bilirubin (Negative) Urine Urobilinogen (<2.0) mg/dL Ur Leukocyte Esterase (Negative) Urine RBC (0-5) /hpf Urine WBC (0-5) /hpf Ur Squamous Epith Cells (0-4) /hpf Urine Mucus (None) /hpf Urine HCG, Qual Not Detected (Not Detectd) 07/15/18 07/15/18 Range/Units 19:59 19:59 WBC (3.8-10.6) k/uL RBC (3.80-5.40) m/uL Hgb (11.4-16.0) gm/dL Hct (34.0-46.0) % MCV (80.0-100.0) fL MCH (25.0-35.0) pg MCHC (31.0-37.0) g/dL RDW (11.5-15.5) % Plt Count (150-450) k/uL Neutrophils % % Lymphocytes % % Monocytes % % Eosinophils % % Basophils % % Neutrophils # (1.3-7.7) k/uL Lymphocytes # (1.0-4.8) k/uL Monocytes # (0-1.0) k/uL Eosinophils # (0-0.7) k/uL Basophils # (0-0.2) k/uL PT 11.0 (9.0-12.0) sec INR 1.1 (<1.2) APTT 25.1 (22.0-30.0) sec Sodium (137-145) mmol/L Potassium (3.5-5.1) mmol/L Chloride (98-107) mmol/L Carbon Dioxide (22-30) mmol/L Anion Gap mmol/L BUN (7-17) mg/dL Creatinine (0.52-1.04) mg/dL Est GFR (CKD-EPI)AfAm (>60 ml/min/1.73 sqM) Est GFR (CKD-EPI)NonAf (>60 ml/min/1.73 sqM) Glucose (74-99) mg/dL Calcium (8.4-10.2) mg/dL Total Bilirubin (0.2-1.3) mg/dL AST (14-36) U/L ALT (9-52) U/L Alkaline Phosphatase (38-126) U/L Total Protein (6.3-8.2) g/dL Albumin (3.5-5.0) g/dL Urine Color Yellow Urine Appearance Clear (Clear) Urine pH 8.0 (5.0-8.0) Ur Specific [place] 1.025 (1.001-1.035) Urine Protein Trace H (Negative) Urine Glucose (UA) Negative (Negative) Urine Ketones Negative (Negative) Urine Blood Moderate H (Negative) Urine Nitrite Negative (Negative) Urine Bilirubin Negative (Negative) Urine Urobilinogen 3.0 (<2.0) mg/dL Ur Leukocyte Esterase Trace H (Negative) Urine RBC 59 H (0-5) /hpf Urine WBC 2 (0-5) /hpf Ur Squamous Epith Cells 2 (0-4) /hpf Urine Mucus Occasional H (None) /hpf Urine HCG, Qual (Not Detectd) - Radiology Data Transvaginal ultrasound was performed, report was reviewed in its entirety. Impression by Dr. Cadena shows IUD appears to be in good position. Right ovarian dominant cyst. No solid adnexal mass. No evidence of ovarian torsion. (Lisa Jose) Disposition Is patient prescribed a controlled substance at d/c from ED?: No Time of Disposition: 21:29 <Lisa Jose - Last Filed: 07/16/18 03:20> <Aminta Montejo - Last Filed: 07/16/18 06:00> Clinical Impression: Right ovarian cyst, Dysfunctional uterine bleeding Disposition: HOME SELF-CARE Condition: Good Instructions: Dysfunctional Uterine Bleeding (ED), Ovarian Cyst (ED) Additional Instructions: Follow-up with your formal service waiter for recheck as soon as possible. Return immediately if you develops any new, worsening, or concerning symptoms. Referrals: Agnes Coleman MD [Primary Care Provider] - 1-2 days
[2018-07-15 20:15] LABS: Basophils % (A) 1 %; Eosinophils # (A) 0.3 k/uL (0-0.7); Eosinophils % (A) 4 %; HCT 38.7 % (34.0-46.0); HGB 12.8 gm/dL (11.4-16.0); Lymphocytes # (A) 1.6 k/uL (1.0-4.8); Lymphocytes % (A) 25 %; MCH 27.9 pg (25.0-35.0); MCHC 33.1 g/dL (31.0-37.0); MCV 84.3 fL (80.0-100.0); Mean Platelet Volume 6.8; Monocytes # (A) 0.5 k/uL (0-1.0); Monocytes % (A) 9 %; Neutrophils # (A) 3.7 k/uL (1.3-7.7); Neutrophils % (A) 60 %; Platelet Count 257 k/uL (150-450); RBC 4.59 m/uL (3.80-5.40); RDW 13.7 % (11.5-15.5); WBC 6.3 k/uL (3.8-10.6)
[2018-07-15 20:21] VITALS: RESP 17
[2018-07-15 20:22] LABS: Appearance,Urine Clear (Clear); Bilirubin,Urine Negative (Negative); Blood,Urine Moderate (Negative); Color,Urine Yellow; Glucose,Urine (UA) Negative (Negative); Ketones,Urine Negative (Negative); Leukocyte Esterase,Urine Trace (Negative); Mucus,Urine Occasional /hpf; Nitrite,Urine Negative (Negative); Protein,Urine Trace (Negative); RBC,Urine 59 /hpf (0-5); Specific Gravity,Urine 1.025 (1.001-1.035); Squamous Epithelial Cell,Urine 2 /hpf (0-4); WBC,Urine 2 /hpf (0-5)
[2018-07-15 20:24] LABS: ALT 44 U/L (9-52); AST 24 U/L (14-36); Albumin 3.3 g/dL (3.5-5.0); Alkaline Phosphatase 86 U/L (38-126); Anion Gap 5 mmol/L; Blood Urea Nitrogen 10 mg/dL (7-17); Calcium 9.1 mg/dL (8.4-10.2); Carbon Dioxide 25 mmol/L (22-30); Chloride 110 mmol/L (98-107); Glucose 73 mg/dL (74-99); Potassium 4.1 mmol/L (3.5-5.1); Sodium 140 mmol/L (137-145); Total Bilirubin 0.3 mg/dL (0.2-1.3); Total Protein 5.8 g/dL (6.3-8.2)
--- NOTE | 2018-07-15 20:57 | US ---
EXAMINATION TYPE: US transvaginal DATE OF EXAM: 07/15/2018 COMPARISON: NONE CLINICAL HISTORY: pain. Heavy bleeding, history of 2 c-sections. Patient has IUD TECHNIQUE: Transvaginal (TV). Transvaginal sonographic images of the pelvis were acquired. Date of LMP: Unsure, patient has IUD EXAM MEASUREMENTS: Uterus: 7.1 x 3.5 x 4.6 cm Endometrial Stripe: 0.3 cm Right Ovary: 4.2 x 3.5 x 3.7 cm Left Ovary: 3.4 x 1.6 x 2.1 cm 1. Uterus: Anteverted wnl 2. Endometrium: IUD visualized in mid portion 3. Right Ovary: Cystic area with daughter cysts visualized measuring 4.0 x 2.8 x 2.6 cm 4. Left Ovary: wnl Spectral, color and waveform doppler imaging shows good arterial and venous flow within the ovaries ; there is no evidence for ovarian torsion. 5. Bilateral Adnexa: wnl 6. Posterior cul-de-sac: wnl IMPRESSION: IUD appears to be in good position. Right ovarian dominant cyst. No solid adnexal mass. N o evidence of ovarian torsion.
[2018-07-15 21:08] LABS: INR 1.1 (<1.2); Partial Thromboplastin Time 25.1 sec (22.0-30.0)
[2018-07-15] MEDS ORDERED: ACET/COD 300 MG/30 MG STARTER PACK 6 TAB BTL PO STA (21:44)
[2018-07-15 22:10] VITALS: BP 122/86; PULSE 69
== END 2018-07-15 22:04 | disposition home or self-care (01) ==
LOC: EC 18:45
DX: N83.201 Unspecified ovarian cyst, right side (principal); N93.8 Other specified abnormal uterine and vaginal bleeding; G40.909 Epilepsy, unspecified, not intractable, without status epilepticus; Z85.850 Personal history of malignant neoplasm of thyroid; Z87.891 Personal history of nicotine dependence; Z79.899 Other long term (current) drug therapy; Z88.0 Allergy status to penicillin; Z91.040 Latex allergy status; Z91.018 Allergy to other foods; Z91.011 Allergy to milk products; Z91.09 Other allergy status, other than to drugs and biological substances; Z97.5 Presence of (intrauterine) contraceptive device
CPT/HCPCS: 99284; 96374; 96361; 36415; 80053; 85025; 85610; 85730; 81001; 81025; 93975; 76830; J1885

== ENCOUNTER 2018-09-08 05:02 | Emergency (ER) | payer OTHER ==
[2018-09-08 05:18] VITALS: BP 124/93; PULSE 75; RESP 20; TEMP 98.9
--- NOTE | 2018-09-08 05:21 | ED ---
Chest Pain HPI - General Stated Complaint: Chest Pain Time Seen by Provider: 09/08/18 05:04 Mode of arrival: ambulatory Limitations: no limitations - History of Present Illness MD Complaint: chest pain -: hour(s) Onset: during rest Pain Location: substernal Pain Radiation: back Quality: aching Consistency: constant Improves With: nothing Worsens With: nothing Treatments Prior to Arrival: none - Related Data Home Medications Medication Instructions Recorded Confirmed Pnt-Ttey-Eqrhe Acid 1 cap PO DAILY 08/16/17 11/15/17 [-U Capsule (formulary)] levETIRAcetam [Keppra] 1,000 mg PO BID 08/16/17 11/15/17 HYDROcodone/APAP 5-325MG [[place] 1 tab PO Q6H PRN 11/15/17 11/15/17 5-325] Ibuprofen [Motrin] 600 mg PO Q8HR PRN 11/15/17 11/15/17 Allergies Allergy/AdvReac Type Severity Reaction Status Date / Time azithromycin [From Zithromax] Allergy Severe Anaphylaxis Verified 07/15/18 19:10 Bleach (Sodium Hypochlorite) Allergy Itching Verified 07/15/18 19:10 carrot Allergy Anaphylaxis Verified 07/15/18 19:10 cephalexin [From Keflex] Allergy Swelling Verified 07/15/18 19:10 fluconazole Allergy Swelling Verified 07/15/18 19:10 latex Allergy Anaphylaxis Verified 07/15/18 19:10 nystatin Allergy Swelling Verified 07/15/18 19:10 Penicillins Allergy Anaphylaxis Verified 07/15/18 19:10 tomato Allergy Rash/Hives Verified 07/15/18 19:10 milk AdvReac Nausea & Verified 07/15/18 19:10 Vomiting & Diarrhea Review of Systems ROS Statement: Those systems with pertinent positive or pertinent negative responses have been documented in the HPI. ROS Other: All systems not noted in ROS Statement are negative. Constitutional: Denies: fever, chills Respiratory: Denies: cough, dyspnea Cardiovascular: Reports: chest pain. Denies: palpitations, orthopnea, edema, syncope Gastrointestinal: Denies: abdominal pain, nausea, vomiting Genitourinary: Denies: dysuria Musculoskeletal: Reports: back pain Skin: Denies: rash Neurological: Denies: headache, weakness, numbness EKG Findings - EKG Results: EKG: interpreted by ERMD, WNL, sinus rhythm (With sinus arrhythmia, rate 84 bpm) , normal axis, normal QRS, normal ST/T, no acute changes Past Medical History Past Medical History: Seizure Disorder Additional Past Medical History / Comment(s): PT IS , SYNCOPE, HYPOTENSION, tachycardia, seizures, anemia, eclampsia, preeclampsia, thyroid cancer, graves disease History of Any Multi-Drug Resistant Organisms: None Reported Past Surgical History: Section Past Anesthesia/Blood Transfusion Reactions: No Reported Reaction Past Psychological History: No Psychological Hx Reported Smoking Status: Former smoker Past Alcohol Use History: None Reported Past Drug Use History: None Reported - Past Family History Father Family Medical History: No Reported History Mother Family Medical History: No Reported History General Exam General appearance: alert, in no apparent distress Head exam: Present: atraumatic, normocephalic Eye exam: Present: normal appearance. Absent: scleral icterus, conjunctival injection ENT exam: Present: normal oropharynx Respiratory exam: Present: normal lung sounds bilaterally. Absent: respiratory distress, wheezes, rales, rhonchi, stridor, chest wall tenderness, accessory muscle use, decreased breath sounds, prolonged expiratory Cardiovascular Exam: Present: regular rate, normal rhythm, normal heart sounds. Absent: systolic murmur, diastolic murmur, rubs, gallop GI/Abdominal exam: Present: soft. Absent: distended, tenderness, guarding, rebound, rigid, mass Back exam: Present: normal inspection. Absent: CVA tenderness (R), CVA tenderness (L) Neurological exam: Present: alert Skin exam: Present: warm, dry, intact, normal color. Absent: rash Course Vital Signs 09/08/18 05:14 Temperature 98.9 F Pulse Rate 75 Respiratory 20 Rate Blood Pressure 124/93 O2 Sat by Pulse 98 Oximetry Disposition Clinical Impression: Biliary colic Disposition: HOME SELF-CARE Condition: Good Instructions: Biliary Colic (ED) Is patient prescribed a controlled substance at d/c from ED?: No Referrals: Agnes Coleman MD [Primary Care Provider] - 1-2 days
[2018-09-08 05:34] LABS: Basophils % (A) 1 %; Eosinophils # (A) 0.3 k/uL (0-0.7); Eosinophils % (A) 4 %; HCT 41.4 % (34.0-46.0); HGB 13.3 gm/dL (11.4-16.0); Lymphocytes # (A) 1.4 k/uL (1.0-4.8); Lymphocytes % (A) 17 %; MCHC 32.2 g/dL (31.0-37.0); MCV 83.7 fL (80.0-100.0); Mean Platelet Volume 6.7; Monocytes # (A) 0.7 k/uL (0-1.0); Monocytes % (A) 8 %; Neutrophils # (A) 5.9 k/uL (1.3-7.7); Neutrophils % (A) 69 %; Platelet Count 271 k/uL (150-450); RBC 4.94 m/uL (3.80-5.40); RDW 14.2 % (11.5-15.5); WBC 8.5 k/uL (3.8-10.6)
[2018-09-08 05:45] LABS: ALT 144 U/L (9-52); AST 126 U/L (14-36); Albumin 3.2 g/dL (3.5-5.0); Alkaline Phosphatase 112 U/L (38-126); Amylase 32 U/L (30-110); Anion Gap 7 mmol/L; Blood Urea Nitrogen 13 mg/dL (7-17); Calcium 8.7 mg/dL (8.4-10.2); Carbon Dioxide 26 mmol/L (22-30); Chloride 108 mmol/L (98-107); Glucose 95 mg/dL (74-99); Lipase 81 U/L (23-300); Potassium 4.2 mmol/L (3.5-5.1); Sodium 141 mmol/L (137-145); Total Bilirubin 0.3 mg/dL (0.2-1.3); Total Protein 5.9 g/dL (6.3-8.2)
[2018-09-08] MEDS ORDERED: HYDROcodone/APAP 5-325MG 1 EACH TAB PO STA (05:45)
[2018-09-08 05:52] LABS: Creatine Kinase 21 U/L (30-135)
[2018-09-08 05:57] LABS: Appearance,Urine Cloudy (Clear); Bilirubin,Urine Negative (Negative); Blood,Urine Negative (Negative); Color,Urine Yellow; Glucose,Urine (UA) Negative (Negative); Ketones,Urine Negative (Negative); Leukocyte Esterase,Urine Negative (Negative); Mucus,Urine Few /hpf; Nitrite,Urine Negative (Negative); PH, Urine 6.5 (5.0-8.0); Protein,Urine 1+ (Negative); RBC,Urine 1 /hpf (0-5); Squamous Epithelial Cell,Urine 6 /hpf (0-4); WBC,Urine <1 /hpf (0-5)
[2018-09-08 06:05] LABS: Creatine Kinase MB <0.2 ng/mL (0.0-2.4); Troponin I <0.012 ng/mL (0.000-0.034)
--- NOTE | 2018-09-08 06:11 | XR ---
EXAMINATION TYPE: XR chest 2V DATE OF EXAM: 09/08/2018 COMPARISON: 10/01/2015 HISTORY: Chest pain TECHNIQUE: Frontal and lateral views of the chest are obtained. FINDINGS: Heart and mediastinum are normal. Lungs are clear. Diaphragm is normal. Bony thorax is int act. IMPRESSION: Normal chest. No change.
--- NOTE | 2018-09-08 08:08 | US ---
EXAMINATION TYPE: US abdomen limited DATE OF EXAM: 09/08/2018 COMPARISON: 10/24/2017 CLINICAL HISTORY: 23-year-old female attention RUQ. Abnormal labs, pain TECHNIQUE: Multiple sonographic images of the right upper quadrant are obtained. FINDINGS: EXAM MEASUREMENTS: Liver Length: 16.7 cm Gallbladder Wall: 0.2 cm CBD: 0.2 cm CHD: 0.2 cm Right Kidney: 11.4 x 4.1 x 3.9 cm Pancreas: Limited visualization due to overlying bowel gas Liver: No focal lesion seen. Gallbladder: Nondistended and no wall thickening or surrounding fluid. There is an 8 mm mobile galls tone within. Evidence for sonographic Campbell's sign: neg CBD: wnl CHD: wnl Bile duct normal caliber. Right Kidney: No hydronephrosis. IMPRESSION: Cholelithiasis. No evidence for acute cholecystitis or biliary ductal dilatation.
== END 2018-09-08 08:48 | disposition home or self-care (01) ==
LOC: EC 05:02
DX: K80.70 Calculus of gallbladder and bile duct without cholecystitis without obstruction (principal); G40.909 Epilepsy, unspecified, not intractable, without status epilepticus; Z79.899 Other long term (current) drug therapy; Z87.891 Personal history of nicotine dependence; Z85.850 Personal history of malignant neoplasm of thyroid; Z88.0 Allergy status to penicillin; Z88.1 Allergy status to other antibiotic agents; Z91.048 Other nonmedicinal substance allergy status; Z91.011 Allergy to milk products; Z91.040 Latex allergy status; Z88.8 Allergy status to other drugs, medicaments and biological substances; Z91.018 Allergy to other foods
CPT/HCPCS: 36415; 71046; 76705; 80053; 81001; 81025; 82150; 82550; 82553; 83690; 84484; 85025; 85379; 93005; 99285

== ENCOUNTER 2018-09-19 09:38 | Emergency (ER) | payer OTHER ==
[2018-09-19 09:45] VITALS: RESP 18
[2018-09-19] MEDS ORDERED: ONDANSETRON 4 MG/2 ML VIAL IVP STA (09:58)
[2018-09-19] MEDS ORDERED: FAMOTIDINE 20 MG/2 ML VIAL IV STA (09:58)
[2018-09-19] MEDS ORDERED: SODIUM CHLORIDE 0.9% 1,000 ML IV STA (09:58)
--- NOTE | 2018-09-19 10:00 | ED ---
General Adult HPI - General Chief complaint: Abdominal Pain Stated complaint: gallbladder issue Time Seen by Provider: 09/19/18 09:47 Source: patient, RN notes reviewed Mode of arrival: ambulatory Limitations: no limitations - History of Present Illness Initial comments: Patient is a 23 year old female presents to the emergency room today with a chief complaint of abdominal pain. Patient does admit that she's been experiencing pain over the past week. Was seen here in the emergency room diagnosed with gallstones. She states that she was advised follow-up the surgeon over the next 2 days. However, states that due to the holidays was unable to see anyone. States pain started again at 2:30 in the morning. Has been constant since. Patient admits to nausea and vomiting. Admits to pain located in the right upper quadrant that radiates to the right shoulder. Does admit to nausea, vomiting, diarrhea. Patient denies any recent fever, chills, shortness of breath, chest pain, back pain, numbness or tingling, dysuria or hematuria, constipation, headaches or visual changes, or any other complaints. - Related Data Home Medications Medication Instructions Recorded Confirmed Methimazole [Tapazole] 20 mg PO DAILY 09/08/18 09/19/18 Metoprolol Tartrate [Lopressor] 25 mg PO BID 09/08/18 09/19/18 Acetaminophen Tab [Tylenol Tab] 500 mg PO ONCE 09/19/18 09/19/18 Acetaminophen with Codeine 1 tab PO ONCE 09/19/18 09/19/18 [Tylenol w/codeine #3] Previous Rx's Medication Instructions Recorded Ondansetron Odt [Zofran ODT] 4 mg PO Q8HR PRN #20 tab 09/19/18 Allergies Allergy/AdvReac Type Severity Reaction Status Date / Time azithromycin [From Zithromax] Allergy Severe Anaphylaxis Verified 09/19/18 09:50 Bleach (Sodium Hypochlorite) Allergy Itching Verified 09/19/18 09:50 carrot Allergy Anaphylaxis Verified 09/19/18 09:50 cephalexin [From Keflex] Allergy Swelling Verified 09/19/18 09:50 fluconazole Allergy Swelling Verified 09/19/18 09:50 latex Allergy Anaphylaxis Verified 09/19/18 09:50 nystatin Allergy Swelling Verified 09/19/18 09:50 Penicillins Allergy Anaphylaxis Verified 09/19/18 09:50 tomato Allergy Rash/Hives Verified 09/19/18 09:50 milk AdvReac Nausea & Verified 09/19/18 09:50 Vomiting & Diarrhea Review of Systems ROS Statement: Those systems with pertinent positive or pertinent negative responses have been documented in the HPI. ROS Other: All systems not noted in ROS Statement are negative. Past Medical History Past Medical History: Seizure Disorder, Thyroid Disorder Additional Past Medical History / Comment(s): SYNCOPE, HYPOTENSION, tachycardia , seizures, anemia, eclampsia, preeclampsia, thyroid cancer, graves disease History of Any Multi-Drug Resistant Organisms: None Reported Past Surgical History: Section Additional Past Surgical History / Comment(s): C section x 2 Past Anesthesia/Blood Transfusion Reactions: No Reported Reaction Past Psychological History: No Psychological Hx Reported Smoking Status: Never smoker Past Alcohol Use History: None Reported Past Drug Use History: Marijuana - Past Family History Father Family Medical History: No Reported History Mother Family Medical History: No Reported History General Exam - General Exam Comments Initial Comments: General: The patient is awake and alert, in no distress, and does not appear acutely ill. Eye: There is normal conjunctiva bilaterally. No signs of icterus. Ears, nose, mouth and throat: There are moist mucous membranes and no oral lesions. Neck: The neck is supple, there is no tenderness or JVD. Cardiovascular: There is a regular rate and rhythm. No murmur, rub or gallop is appreciated. Respiratory: Lungs are clear to auscultation, respirations are non-labored, breath sounds are equal. No wheezes, stridor, rales, or rhonchi. Gastrointestinal: Abdomen soft on palpation. Patient does have tenderness epigastric right upper quadrant. Mild tenderness in the right CVA. No rebound , guarding. Musculoskeletal: Normal ROM, no tenderness. Neurological: A&O x 3. CN II-XII intact, There are no obvious motor or sensory deficits. Coordination appears grossly intact. Speech is normal. Skin: Skin is warm and dry and no rashes or lesions are noted. Psychiatric: Cooperative, appropriate mood & affect, normal judgment. Limitations: no limitations Course Vital Signs 09/19/18 09/19/18 09/19/18 09:40 10:28 11:19 Temperature 97.9 F Pulse Rate 74 69 Respiratory 18 18 18 Rate Blood Pressure 147/84 131/81 O2 Sat by Pulse 96 100 Oximetry Medical Decision Making - Medical Decision Making Patient reexamined at this time shows no signs of distress. She does admit that she's feeling better. Ultrasound was reviewed and shows no change from previous. There is no evidence of cholecystitis. Patient labs been reviewed shows no elevated white count. Patient is no fever here in emergency room. Liver enzymes are mildly elevated but improved from previous lab draw. Patient at this time is resting comfortably and will be discharged home to follow-up with a surgeon. Given general surgeon on-call today. Advised a bland diet to return to emergency room if any symptoms increase or worsen. - Lab Data Result diagrams: 09/19/18 10:20 09/19/18 10:20 Lab Results 09/19/18 09/19/18 09/19/18 Range/Units 10:20 10:20 10:30 WBC 7.7 (3.8-10.6) k/uL RBC 4.96 (3.80-5.40) m/uL Hgb 13.0 (11.4-16.0) gm/dL Hct 42.5 (34.0-46.0) % MCV 85.8 (80.0-100.0) fL MCH 26.3 (25.0-35.0) pg MCHC 30.7 L (31.0-37.0) g/dL RDW 14.4 (11.5-15.5) % Plt Count 301 (150-450) k/uL Neutrophils % 73 % Lymphocytes % 17 % Monocytes % 6 % Eosinophils % 2 % Basophils % 0 % Neutrophils # 5.7 (1.3-7.7) k/uL Lymphocytes # 1.3 (1.0-4.8) k/uL Monocytes # 0.4 (0-1.0) k/uL Eosinophils # 0.2 (0-0.7) k/uL Basophils # 0.0 (0-0.2) k/uL Sodium 141 (137-145) mmol/L Potassium 4.4 (3.5-5.1) mmol/L Chloride 110 H (98-107) mmol/L Carbon Dioxide 26 (22-30) mmol/L Anion Gap 5 mmol/L BUN 11 (7-17) mg/dL Creatinine 0.50 L (0.52-1.04) mg/dL Est GFR (CKD-EPI)AfAm >90 (>60 ml/min/1.73 sqM) Est GFR (CKD-EPI)NonAf >90 (>60 ml/min/1.73 sqM) Glucose 95 (74-99) mg/dL Calcium 9.2 (8.4-10.2) mg/dL Total Bilirubin 0.4 (0.2-1.3) mg/dL AST 37 H (14-36) U/L ALT 96 H (9-52) U/L Alkaline Phosphatase 109 (38-126) U/L Total Protein 5.8 L (6.3-8.2) g/dL Albumin 3.3 L (3.5-5.0) g/dL Amylase 59 (30-110) U/L Lipase 150 (23-300) U/L Urine Color Yellow Urine Appearance Cloudy H (Clear) Urine pH 6.5 (5.0-8.0) Ur Specific [place] 1.020 (1.001-1.035) Urine Protein Negative (Negative) Urine Glucose (UA) Negative (Negative) Urine Ketones Negative (Negative) Urine Blood Negative (Negative) Urine Nitrite Negative (Negative) Urine Bilirubin Negative (Negative) Urine Urobilinogen <2.0 (<2.0) mg/dL Ur Leukocyte Esterase Negative (Negative) Urine RBC 2 (0-5) /hpf Urine WBC 1 (0-5) /hpf Ur Squamous Epith Cells 12 H (0-4) /hpf Urine Mucus Rare H (None) /hpf Disposition Clinical Impression: Abdominal pain Disposition: HOME SELF-CARE Condition: Good Instructions: Abdominal Pain (ED) Additional Instructions: Please follow-up with surgeon over the next 2 days. Please eat a bland low-fat diet. Please return to emergency room for any other concerns. Prescriptions: Ondansetron Odt [Zofran ODT] 4 mg PO Q8HR PRN #20 tab PRN Reason: Nausea Is patient prescribed a controlled substance at d/c from ED?: No Referrals: Agnes Coleman MD [Primary Care Provider] - 1-2 days Sherly Ordonez MD [STAFF PHYSICIAN] - 1-2 days Time of Disposition: 12:15
[2018-09-19 10:44] LABS: Basophils % (A) 0 %; Eosinophils # (A) 0.2 k/uL (0-0.7); Eosinophils % (A) 2 %; HCT 42.5 % (34.0-46.0); Lymphocytes # (A) 1.3 k/uL (1.0-4.8); Lymphocytes % (A) 17 %; MCH 26.3 pg (25.0-35.0); MCHC 30.7 g/dL (31.0-37.0); MCV 85.8 fL (80.0-100.0); Mean Platelet Volume 6.3; Monocytes # (A) 0.4 k/uL (0-1.0); Monocytes % (A) 6 %; Neutrophils # (A) 5.7 k/uL (1.3-7.7); Neutrophils % (A) 73 %; Platelet Count 301 k/uL (150-450); RBC 4.96 m/uL (3.80-5.40); RDW 14.4 % (11.5-15.5); WBC 7.7 k/uL (3.8-10.6)
[2018-09-19 10:47] LABS: Appearance,Urine Cloudy (Clear); Bilirubin,Urine Negative (Negative); Blood,Urine Negative (Negative); Color,Urine Yellow; Glucose,Urine (UA) Negative (Negative); Ketones,Urine Negative (Negative); Leukocyte Esterase,Urine Negative (Negative); Mucus,Urine Rare /hpf; Nitrite,Urine Negative (Negative); PH, Urine 6.5 (5.0-8.0); Protein,Urine Negative (Negative); RBC,Urine 2 /hpf (0-5); Squamous Epithelial Cell,Urine 12 /hpf (0-4); Urobilinogen,Urine <2.0 mg/dL (<2.0); WBC,Urine 1 /hpf (0-5)
[2018-09-19 10:48] LABS: ALT 96 U/L (9-52); AST 37 U/L (14-36); Albumin 3.3 g/dL (3.5-5.0); Alkaline Phosphatase 109 U/L (38-126); Amylase 59 U/L (30-110); Anion Gap 5 mmol/L; Blood Urea Nitrogen 11 mg/dL (7-17); Calcium 9.2 mg/dL (8.4-10.2); Carbon Dioxide 26 mmol/L (22-30); Chloride 110 mmol/L (98-107); Glucose 95 mg/dL (74-99); Lipase 150 U/L (23-300); Potassium 4.4 mmol/L (3.5-5.1); Sodium 141 mmol/L (137-145); Total Bilirubin 0.4 mg/dL (0.2-1.3); Total Protein 5.8 g/dL (6.3-8.2)
[2018-09-19] MEDS ORDERED: HYDROmorphone 0.5 MG/0.5 ML SYRINGE IVP STA (11:06)
--- NOTE | 2018-09-19 11:53 | US ---
EXAMINATION TYPE: US abdomen limited DATE OF EXAM: 09/19/2018 COMPARISON: 09/08/2018 CLINICAL HISTORY: 23-year-old female with pain. Pain, Hx of GB stone TECHNIQUE: Multiple sonographic images of the right upper quadrant are obtained. FINDINGS: EXAM MEASUREMENTS: Liver Length: 17.3 cm Gallbladder Wall: 0.2 cm CBD: 0.3 cm Right Kidney: 12.2 x 4.7 x 3.3 cm Pancreas: wnl, main pancreatic duct= 2.1 mm, prominent but not enlarged. Liver: Borderline sized. No focal lesion seen. Gallbladder: mobile echogenic nonshadowing focus- 0.6 x 0.5 cm Evidence for sonographic Campbell's sign: neg CBD: wnl Right Kidney: No hydronephrosis IMPRESSION: Redemonstrated small gallstone. No evidence for acute cholecystitis or biliary ductal dilatation. The liver is noted to be borderline in size at 17.3 cm.
[2018-09-19 12:30] VITALS: BP 127/77; PULSE 71
[2018-09-19 12:53] VITALS: TEMP 97.6
== END 2018-09-19 12:30 | disposition home or self-care (01) ==
LOC: EC 09:38
DX: R10.11 Right upper quadrant pain (principal); R11.2 Nausea with vomiting, unspecified; R19.7 Diarrhea, unspecified; R74.8 Abnormal levels of other serum enzymes; E05.00 Thyrotoxicosis with diffuse goiter without thyrotoxic crisis or storm; Z79.899 Other long term (current) drug therapy; Z88.1 Allergy status to other antibiotic agents; Z91.048 Other nonmedicinal substance allergy status; Z91.018 Allergy to other foods; Z91.040 Latex allergy status; Z88.0 Allergy status to penicillin; Z91.011 Allergy to milk products; Z85.850 Personal history of malignant neoplasm of thyroid
CPT/HCPCS: 36415; 80053; 82150; 83690; 85025; 81001; 76705; 99284; 96374; 96375 ×2; 96361; J2405; J1170

== ENCOUNTER → 2018-09-24 | Day surgery (SDC) | payer OTHER ==
[2018-09-13 15:28] VITALS: BMI 32.3
[~2018-09-24] MED LIST changes: -DEXTROSE 5% IN WATER 50 ML BAG ONE; -MAGNESIUM SULFATE SYG 4.06 MEQ/ML SYRINGE ONE; +SODIUM CHLORIDE 0.9% 1,000 ML IV SCH
[2018-09-24 12:23] VITALS: RESP 18; TEMP 98
[2018-09-24 16:01] VITALS: BP 128/75; PULSE 76
--- NOTE | 2018-09-24 16:31 | P.PCN ---
Preoperative Diagnosis: Diagnosis Recurrent dizzy spells Twelve-lead ECG shows sinus rhythm normal [place] narrow QRS normal ST segments normal QT interval no delta waves no epsilon waves Tilt table test per protocol Baseline blood pressure 113/65 mmHg Baseline heart rate 70 beats a minute patient was tilted upright on Paul of 70 per protocol There is no change in heart rate or blood pressure. At the end of the procedure she was laid supine Impression Normal twelve-lead ECG Normal heart rate and blood pressure response to upright tilting
== END ==
LOC: CATHEP 11:28
PROVIDERS: ATTEND Internal Medicine Clinical Cardiac Electrophysiology
DX: R55 Syncope and collapse (principal); R00.2 Palpitations; E05.00 Thyrotoxicosis with diffuse goiter without thyrotoxic crisis or storm; Z72.0 Tobacco use; Z82.49 Family history of ischemic heart disease and other diseases of the circulatory system; Z79.899 Other long term (current) drug therapy; Z88.0 Allergy status to penicillin; Z88.1 Allergy status to other antibiotic agents; Z91.040 Latex allergy status
CPT/HCPCS: 81025; 93660

== ENCOUNTER 2018-10-01 10:12 | Day surgery (SDC) | payer OTHER ==
[2018-09-26 15:21] VITALS: BMI 32.3
[~2018-10-01 10:12] MED LIST changes: +CLINDAMYCIN 900 MG in DEXTROSE 5% IN WATER 50 ML IVPB ONE; +DEXAMETHASONE SOD PHOSPHATE 10 MG/ML 1 ML VIAL IV ONE; +GENTAMICIN 440 MG in SODIUM CHLORIDE 0.9% 100 ML IVPB ONE; +HEPARIN SODIUM,PORCINE 5,000 UNIT/ML 1 ML VIAL SQ ONE; +LACTATED RINGERS 1,000 ML IV SCH; +LIDOCAINE 1% 20 ML VIAL (10MG/ML) FOR IV START INTRADERMA PRN; +ONDANSETRON 4 MG/2 ML VIAL IVP ONE; +SCOPOLAMINE 1.5MG/72HR PATCH TRANSDERM ONE; -SODIUM CHLORIDE 0.9% 1,000 ML IV SCH
[2018-10-01 10:54] VITALS: RESP 16
[2018-10-01] MEDS ORDERED: MIDAZOLAM 2 MG/2 ML VIAL IV ONE (11:10)
--- NOTE | 2018-10-01 12:06 | P.GSHP ---
History of Present Illness H&P Date: 10/01/18 Chief Complaint: Right upper quadrant pain, cholelithiasis This a 23-year-old female who presents today for laparoscopic cholecystectomy. Patient's had complete pain. Patient is known cholelithiasis. Past Medical History Past Medical History: Cancer, Eye Disorder, Musculoskeletal Disorder, Seizure Disorder, Syncope, Thyroid Disorder Additional Past Medical History / Comment(s): SYNCOPE, HYPOTENSION, tachycardia , graves disease, current thyroid cancer - awaiting date to have thyroidectomy, scoliosis, bilateral pre-glaucoma, elevated liver enzymes. Hx thyroid storm, seizures (last seizure 1 yr ago), anemia, eclampsia, preeclampsia. History of Any Multi-Drug Resistant Organisms: None Reported Past Surgical History: Section Additional Past Surgical History / Comment(s): section x 2. Past Anesthesia/Blood Transfusion Reactions: No Reported Reaction Past Psychological History: No Psychological Hx Reported Smoking Status: Former smoker Past Alcohol Use History: None Reported Additional Past Alcohol Use History / Comment(s): Pt started smoking in 2009 and has been an off and on smoker. She quit smoking again about 2 yrs ago. Past Drug Use History: Marijuana Additional Drug Use History / Comment(s): Uses Marijuana 3 times weekly. Aware not to use 24 hrs prior to procedure. - Past Family History Father Family Medical History: No Reported History Mother Family Medical History: No Reported History Medications and Allergies Home Medications Medication Instructions Recorded Confirmed Type Methimazole [Tapazole] 20 mg PO QAM 09/08/18 09/26/18 History Metoprolol Tartrate [Lopressor] 25 mg PO BID 09/08/18 09/26/18 History Acetaminophen Tab [Tylenol Tab] 500 mg PO Q4H PRN 09/19/18 10/01/18 History Ondansetron Odt [Zofran ODT] 4 mg PO Q8HR PRN #20 tab 09/19/18 09/26/18 Rx Allergies Allergy/AdvReac Type Severity Reaction Status Date / Time latex Allergy Severe Anaphylaxis Verified 10/01/18 10:35 azithromycin [From Zithromax] Allergy Unknown Verified 10/01/18 10:35 Bleach (Sodium Hypochlorite) Allergy Unknown Verified 10/01/18 10:35 cephalexin [From Keflex] Allergy Unknown Verified 10/01/18 10:35 fluconazole Allergy Unknown Verified 10/01/18 10:35 nystatin Allergy Unknown Verified 10/01/18 10:35 Penicillins Allergy Unknown Verified 10/01/18 10:35 Surgical - Exam Vital Signs Temp Pulse Resp BP Pulse Ox 98.3 F 54 L 16 127/69 98 10/01/18 10:53 10/01/18 10:53 10/01/18 10:53 10/01/18 10:53 10/01/18 10:53 - General well developed, no distress - Eyes PERRL - ENT normal pinna - Neck no masses - Respiratory normal expansion - Cardiovascular Rhythm: regular - Abdomen Abdomen: soft, non tender Assessment and Plan Assessment: Right upper quadrant pain Cholelithiasis We'll perform laparoscopic cholecystectomy.
[2018-10-01] MEDS ORDERED: PROPOFOL 10 MG/ML 20 ML VIAL IV ONE (12:40)
[2018-10-01] MEDS ORDERED: MIDAZOLAM 2 MG/2 ML VIAL ONE (12:40)
[2018-10-01] MEDS ORDERED: KETOROLAC 30 MG/ML 1 ML VIAL ONE (12:40)
[2018-10-01] MEDS ORDERED: NEOSTIGMINE 1 MG/ML 10 ML VIAL ONE (12:40)
[2018-10-01] MEDS ORDERED: SUCCINYLCHOLINE CHLORIDE 100 MG/5 ML SYR IV ONE (12:40)
[2018-10-01] MEDS ORDERED: GLYCOPYRROLATE 0.2 MG/ML 2 ML VIAL ONE (12:40)
[2018-10-01] MEDS ORDERED: LIDOCAINE 1% INJ 10MG/ML (20 ML MDV) ONE (12:40)
[2018-10-01] MEDS ORDERED: ROCURONIUM BROMIDE 10 MG/ML 10 ML VIAL IV ONE (12:40)
[2018-10-01] MEDS ORDERED: fentaNYL (PF) 50 MCG/ML 2 ML AMP ONE (12:40)
[2018-10-01] MEDS ORDERED: BUPIVACAINE-EPI 0.5%-1:200,000 10 ML VIAL SQ ONE (13:05)
[2018-10-01 13:37] VITALS: TEMP 97.4
[2018-10-01] MEDS: HYDROmorphone 0.5 MG/0.5 ML SYRINGE IVP PRN ×3 (13:44→14:16)
[2018-10-01] MEDS ORDERED: ONDANSETRON 4 MG/2 ML VIAL IVP ONE (13:52)
[2018-10-01] MEDS ORDERED: MEPERIDINE 50 MG/ML SYRINGE IVP ONE (13:59)
[2018-10-01] MEDS ORDERED: diphenhydrAMINE 50 MG/ML 1 ML VIAL IVP ONE (14:20)
[2018-10-01 14:47] VITALS: BP 128/81; PULSE 70
[2018-10-01] MEDS ORDERED: HYDROcodone/APAP 7.5-325MG 1 EACH TAB PO ONE (14:53)
--- NOTE | 2018-10-05 15:40 | P.OP ---
Date of Procedure: 10/05/18 Preoperative Diagnosis: Cholecystitis Postoperative Diagnosis: Cholecystitis Procedure(s) Performed: Laparoscopic cholecystectomy Anesthesia: KELLY Surgeon: Octavio Schmidt Estimated Blood Loss (ml): 5 Pathology: other (Gallbladder) Condition: stable Disposition: PACU Description of Procedure: The patient was placed on the operating table. The patient received a general endotracheal tube anesthesia. The patients abdomen was prepped and draped in the usual sterile fashion. Through an infraumbilical stab incision, the fascia of the anterior abdominal wall was grasped with a pair of Kochers and then the Veress needle was placed in the peritoneal cavity. Position of the Veress needle was confirmed with positive drop test. The abdomen was then insufflated. After adequate insufflation, the 10 mm trocar was placed in the peritoneal cavity. Following this the laparoscope was placed in the peritoneal cavity. The patient was placed in the head-up, right side up position and then a 5 mm trocar was placed in the right lateral and right subcostal position under direct visualization. A 8 mm trocar was placed in the epigastric position. The gallbladder was grasped in the fundus and infundibulum. Traction on the gallbladder was placed in the lateral and the cephalad positions. The triangle of [place] was visualized.. The cystic duct was bluntly dissected until the union of the cystic duct and common bile duct was seen. The cystic duct was then divided and sealed with the Harmonic scissors. A PDS Endoloop was then placed throughout the cystic duct stump. The cystic artery divided and sealed with the Harmonic scissors. The gallbladder was then removed from the liver bed using Harmonic scissors. The gallbladder was then extracted through the epigastric port site. Operative field was checked for any bleeding spots and Harmonic scissors was used to coagulate the liver bed. The abdomen was irrigated. The trocars were removed. The skin was closed using interrupted 3-0 Vicryl suture. Dermabond dressing were applied. The patient tolerated the procedure well.
== END 2018-10-01 15:53 | disposition home or self-care (01) ==
LOC: OR 10:12
PROVIDERS: ATTEND Surgery
DX: K81.1 Chronic cholecystitis (principal); G40.909 Epilepsy, unspecified, not intractable, without status epilepticus; I95.9 Hypotension, unspecified; R00.0 Tachycardia, unspecified; E05.00 Thyrotoxicosis with diffuse goiter without thyrotoxic crisis or storm; M41.9 Scoliosis, unspecified; H40.003 Preglaucoma, unspecified, bilateral; Z79.899 Other long term (current) drug therapy; Z88.0 Allergy status to penicillin; Z88.8 Allergy status to other drugs, medicaments and biological substances; Z88.1 Allergy status to other antibiotic agents; Z91.040 Latex allergy status; Z91.09 Other allergy status, other than to drugs and biological substances; Z87.891 Personal history of nicotine dependence
CPT/HCPCS: 81025; 88304; 47562; J2250; J1200; J1644; J1100; J2710; J2175; J2405; J2001; J3010; J1885; J0330; J2704; J1170

== ENCOUNTER 2018-10-01 23:49 | Emergency (ER) | payer OTHER ==
[2018-10-01 23:55] VITALS: BP 108/70; PULSE 60; RESP 18; TEMP 97.8
--- NOTE | 2018-10-02 00:24 | ED ---
Skin/Abscess/FB HPI - General Chief complaint: Skin/Abscess/Foreign Body Stated complaint: Post op Incision Time Seen by Provider: 10/01/18 23:58 Source: patient, RN notes reviewed Mode of arrival: ambulatory Limitations: no limitations - History of Present Illness Initial comments: 23-year-old female presents emergency department concerns for opening of her incision from her cholecystectomy today by Dr. Schmidt. Patient states she has taken over the incision sites and felt that there was a bubble forming. Patient states that she has not been doing that she was not instructed to do. Patient offers no other complaints. - Related Data Home Medications Medication Instructions Recorded Confirmed Methimazole [Tapazole] 20 mg PO QAM 09/08/18 09/26/18 Metoprolol Tartrate [Lopressor] 25 mg PO BID 09/08/18 09/26/18 Acetaminophen Tab [Tylenol Tab] 500 mg PO Q4H PRN 09/19/18 10/01/18 Previous Rx's Medication Instructions Recorded Ondansetron Odt [Zofran ODT] 4 mg PO Q8HR PRN #20 tab 09/19/18 Docusate [Colace] 100 mg PO BID #20 capsule 10/01/18 HYDROcodone/APAP 7.5-325MG [[place] 1 tab PO Q4H PRN 3 Days #18 tab 10/01/18 7.5-325] Allergies Allergy/AdvReac Type Severity Reaction Status Date / Time latex Allergy Severe Anaphylaxis Verified 10/01/18 23:55 azithromycin [From Zithromax] Allergy Unknown Verified 10/01/18 23:55 Bleach (Sodium Hypochlorite) Allergy Unknown Verified 10/01/18 23:55 cephalexin [From Keflex] Allergy Unknown Verified 10/01/18 23:55 fluconazole Allergy Unknown Verified 10/01/18 23:55 nystatin Allergy Unknown Verified 10/01/18 23:55 Penicillins Allergy Unknown Verified 10/01/18 23:55 Review of Systems ROS Statement: Those systems with pertinent positive or pertinent negative responses have been documented in the HPI. ROS Other: All systems not noted in ROS Statement are negative. Past Medical History Past Medical History: Cancer, Eye Disorder, Musculoskeletal Disorder, Seizure Disorder, Syncope, Thyroid Disorder Additional Past Medical History / Comment(s): SYNCOPE, HYPOTENSION, tachycardia , graves disease, current thyroid cancer - awaiting date to have thyroidectomy, scoliosis, bilateral pre-glaucoma, elevated liver enzymes. Hx thyroid storm, seizures (last seizure 1 yr ago), anemia, eclampsia, preeclampsia. History of Any Multi-Drug Resistant Organisms: None Reported Past Surgical History: Section, Cholecystectomy Additional Past Surgical History / Comment(s): section x 2. Past Anesthesia/Blood Transfusion Reactions: No Reported Reaction Past Psychological History: No Psychological Hx Reported Smoking Status: Former smoker Past Alcohol Use History: Occasional Past Drug Use History: Marijuana - Past Family History Father Family Medical History: No Reported History Mother Family Medical History: No Reported History General Exam Limitations: no limitations General appearance: alert, in no apparent distress Head exam: Present: atraumatic, normocephalic, normal inspection Respiratory exam: Present: normal lung sounds bilaterally. Absent: respiratory distress, wheezes, rales, rhonchi, stridor Cardiovascular Exam: Present: regular rate, normal rhythm, normal heart sounds. Absent: systolic murmur, diastolic murmur, rubs, gallop, clicks GI/Abdominal exam: Present: soft, tenderness (Mildly), normal bowel sounds, other (Incisions are noted, no opening, tape is in place there is some tape opening from the superior incision though no evidence of dehiscence). Absent: distended, guarding, rebound, rigid Course Vital Signs 10/01/18 23:52 Temperature 97.8 F Pulse Rate 60 Respiratory 18 Rate Blood Pressure 108/70 O2 Sat by Pulse 97 Oximetry Medical Decision Making - Medical Decision Making 23-year-old female presents emergency department for concern for wound dehiscence. There is no evidence of wound dehiscence. There is surgical tape in place that was peeling off. Mastisol was applied, additional tape was applied patient is advised to continue activity as directed by surgeon. Disposition Clinical Impression: Encounter for wound re-check Disposition: HOME SELF-CARE Condition: Stable Instructions: Acute Wound Care (ED) Additional Instructions: Please return to the Emergency Department if symptoms worsen or any other concerns. Is patient prescribed a controlled substance at d/c from ED?: No Referrals: Agnes Coleman MD [Primary Care Provider] - 1-2 days Time of Disposition: 00:24
== END 2018-10-02 00:31 | disposition home or self-care (01) ==
LOC: EC 23:49
DX: Z48.815 Encounter for surgical aftercare following surgery on the digestive system (principal); E05.01 Thyrotoxicosis with diffuse goiter with thyrotoxic crisis or storm; Z87.891 Personal history of nicotine dependence; Z79.899 Other long term (current) drug therapy; Z88.0 Allergy status to penicillin; Z91.040 Latex allergy status; Z88.1 Allergy status to other antibiotic agents; Z91.048 Other nonmedicinal substance allergy status; Z88.8 Allergy status to other drugs, medicaments and biological substances; Z86.2 Personal history of diseases of the blood and blood-forming organs and certain disorders involving the immune mechanism; Z85.850 Personal history of malignant neoplasm of thyroid; Z90.49 Acquired absence of other specified parts of digestive tract
CPT/HCPCS: 99282

== ENCOUNTER 2018-11-25 17:35 | Emergency (ER) | payer OTHER ==
[2018-11-25 17:41] VITALS: TEMP 98.5
[2018-11-25] MEDS ORDERED: HYDROcodone/APAP 5-325MG 1 EACH TAB PO STA (17:53)
[2018-11-25] MEDS ORDERED: SODIUM CHLORIDE 0.9% 1,000 ML IV ONE (17:53)
[2018-11-25 18:38] LABS: Basophils # (A) 0.1 k/uL (0-0.2); Basophils % (A) 1 %; Eosinophils # (A) 0.2 k/uL (0-0.7); Eosinophils % (A) 3 %; HCT 38.9 % (34.0-46.0); HGB 12.7 gm/dL (11.4-16.0); Lymphocytes % (A) 27 %; MCH 28.6 pg (25.0-35.0); MCHC 32.6 g/dL (31.0-37.0); MCV 87.8 fL (80.0-100.0); Mean Platelet Volume 6.5; Monocytes # (A) 0.5 k/uL (0-1.0); Monocytes % (A) 6 %; Neutrophils # (A) 4.6 k/uL (1.3-7.7); Neutrophils % (A) 62 %; Platelet Count 300 k/uL (150-450); RBC 4.43 m/uL (3.80-5.40); RDW 14.5 % (11.5-15.5); WBC 7.4 k/uL (3.8-10.6)
[2018-11-25 18:44] LABS: HCG,Qualitative Serum Not Detected
--- NOTE | 2018-11-25 18:44 | ED ---
General Adult HPI - General Chief complaint: Headache Stated complaint: headache/blurred vision/back pain Time Seen by Provider: 11/25/18 17:42 Source: patient Mode of arrival: ambulatory Limitations: no limitations - History of Present Illness Initial comments: 23-year-old female presenting with blurred vision, occipital headache, and left paraspinal lumbar pain radiating down her left leg. Patient states his symptoms began after she received a blood patch brace post-LP headache. She states the procedure was done at [facility] when she was admitted for viral meningitis. She states she saw her doctor on Monday for the symptoms and her doctor ordered an outpatient CT lumbar spine but she was unable to receive it. She denies any fevers or chills or focal weakness. She states the left-sided paraspinal lumbar pain is an aching that is constant, exacerbated with sitting or laying on that area and not alleviated by anything. He states it is reading down the posterior aspect of her left leg. She denies any caudal equinal symptoms. - Related Data Home Medications Medication Instructions Recorded Confirmed Methimazole [Tapazole] 20 mg PO QAM 09/08/18 11/25/18 Metoprolol Tartrate [Lopressor] 25 mg PO BID 09/08/18 11/25/18 Allergies Allergy/AdvReac Type Severity Reaction Status Date / Time latex Allergy Severe Anaphylaxis Verified 11/25/18 21:16 azithromycin [From Zithromax] Allergy Unknown Verified 11/25/18 21:16 Bleach (Sodium Hypochlorite) Allergy Unknown Verified 11/25/18 21:16 cephalexin [From Keflex] Allergy Unknown Verified 11/25/18 21:16 fluconazole Allergy Unknown Verified 11/25/18 21:16 nystatin Allergy Unknown Verified 11/25/18 21:16 Penicillins Allergy Unknown Verified 11/25/18 21:16 Review of Systems ROS Statement: Those systems with pertinent positive or pertinent negative responses have been documented in the HPI. Review of Systems Constitutional: Denies fever, chills Eyes: Positive change in vision, Denies pain Ears, nose, mouth, throat: Positive headaches, Denies sore throat Cardiovascular: Denies chest pain. Denies palpitations Respiratory: Denies shortness of breath, Denies cough Gastrointestinal: Denies abdominal pain. Denies nausea, vomiting, diarrhea. Genitourinary: Denies hematuria, Denies infections Musculoskeletal: Positive back pain, Denies swelling Integumentary: Denies rash Neurological: Denies focal weakness, focal numbness Psychiatric: Denies anxiety, Denies depression Hematologic/Lymphatic: Denies easy bleeding or bruising ROS Other: All systems not noted in ROS Statement are negative. Past Medical History Past Medical History: Cancer, Eye Disorder, Musculoskeletal Disorder, Seizure Disorder, Syncope, Thyroid Disorder Additional Past Medical History / Comment(s): SYNCOPE, HYPOTENSION, tachycardia, graves disease, current thyroid cancer - awaiting date to have thyroidectomy, scoliosis, bilateral pre-glaucoma, elevated liver enzymes. Hx thyroid storm, seizures (last seizure 1 yr ago), anemia, eclampsia, preeclampsia. History of Any Multi-Drug Resistant Organisms: None Reported Past Surgical History: Section, Cholecystectomy Additional Past Surgical History / Comment(s): section x 2. Past Anesthesia/Blood Transfusion Reactions: No Reported Reaction Past Psychological History: No Psychological Hx Reported Smoking Status: Former smoker Past Alcohol Use History: Occasional Past Drug Use History: Marijuana - Past Family History Father Family Medical History: No Reported History Mother Family Medical History: No Reported History General Exam - General Exam Comments Initial Comments: General: Awake, alert, No acute Distress HENT: Normocephalic. Atraumatic Eyes: PERRL. EOMI. No scleral icterus. No injected conjunctiva. No papilledema Neck: Full ROM Chest/Lungs: Clear to auscultation bilaterally. No wheezing, rhonchi, or rales Cardiac: Regular rate, rhythm. No murmurs or rubs Abdomen/GI: Soft, nontender, nondistended. No rebound, guarding, or rigidity. Musculoskeletal: Full ROM. Tenderness to palpation along the left paraspinal lumbar area. No CSF leak from blood patch area. Skin: Warm, dry, intact Neurologic: A/Ox3, no weakness, no sensory deficit, no abnormal gait, no coordination deficit. Limitations: no limitations Course Vital Signs 11/25/18 11/25/18 17:37 21:44 Temperature 98.5 F Pulse Rate 70 89 Respiratory 18 16 Rate Blood Pressure 124/77 126/79 O2 Sat by Pulse 97 99 Oximetry Medical Decision Making - Medical Decision Making 23-year-old female presenting with blurred vision, headache, sciatic back pain. Initial exam the patient is awake alert and is in no acute distress. Her vital signs are stable. She is neurologically intact on exam. Her CT head and CT lumbar spine are negative for acute process. At this time the patient requires transfer to [facility] for evaluation by neurology. Patient would like to self transfer. I spoke with Dr. Scherer who is agreeable to transfer. - Lab Data Result diagrams: 11/25/18 18:10 11/25/18 18:10 Lab Results 11/25/18 11/25/18 Range/Units 18:10 18:10 WBC 7.4 (3.8-10.6) k/uL RBC 4.43 (3.80-5.40) m/uL Hgb 12.7 (11.4-16.0) gm/dL Hct 38.9 (34.0-46.0) % MCV 87.8 (80.0-100.0) fL MCH 28.6 (25.0-35.0) pg MCHC 32.6 (31.0-37.0) g/dL RDW 14.5 (11.5-15.5) % Plt Count 300 (150-450) k/uL Neutrophils % 62 % Lymphocytes % 27 % Monocytes % 6 % Eosinophils % 3 % Basophils % 1 % Neutrophils # 4.6 (1.3-7.7) k/uL Lymphocytes # 2.0 (1.0-4.8) k/uL Monocytes # 0.5 (0-1.0) k/uL Eosinophils # 0.2 (0-0.7) k/uL Basophils # 0.1 (0-0.2) k/uL Sodium 142 (137-145) mmol/L Potassium 4.0 (3.5-5.1) mmol/L Chloride 107 (98-107) mmol/L Carbon Dioxide 29 (22-30) mmol/L Anion Gap 6 mmol/L BUN 13 (7-17) mg/dL Creatinine 0.70 (0.52-1.04) mg/dL Est GFR (CKD-EPI)AfAm >90 (>60 ml/min/1.73 sqM) Est GFR (CKD-EPI)NonAf >90 (>60 ml/min/1.73 sqM) Glucose 82 (74-99) mg/dL Calcium 8.7 (8.4-10.2) mg/dL HCG, Qual Not Detected Disposition Clinical Impression: Left-sided back pain, Headache Disposition: OTHER INSTITUTION NOT DEFINED Referrals: Agnes Coleman MD [Primary Care Provider] - 1-2 days - Out of Hospital Transfer - Req. Specs Out of Hospital Transfer - Requested Specifics: Other Emergency Center ([facility]-Dr. Scherer)
[2018-11-25 18:47] LABS: Anion Gap 6 mmol/L; Blood Urea Nitrogen 13 mg/dL (7-17); Calcium 8.7 mg/dL (8.4-10.2); Carbon Dioxide 29 mmol/L (22-30); Chloride 107 mmol/L (98-107); Glucose 82 mg/dL (74-99); Sodium 142 mmol/L (137-145)
--- NOTE | 2018-11-25 19:40 | CT ---
EXAMINATION TYPE: CT brain wo con DATE OF EXAM: 11/25/2018 COMPARISON: Prior CT brain 06/18/2018 HISTORY: MALDONADO, Recent lumbar puncture with blood patch CT DLP: 1099.4 mGycm. Automated Exposure Control for Dose Reduction was Utilized. TECHNIQUE: CT scan of the head is performed without contrast. FINDINGS: There is no acute intracranial hemorrhage, mass effect, or midline shift identified. The ventricles and sulci are within normal limits in size. The globes are intact and the visualized sin uses are clear. IMPRESSION: No acute intracranial hemorrhage, mass effect, or midline shift is seen.
--- NOTE | 2018-11-25 19:42 | CT ---
EXAMINATION TYPE: CT lumbar spine w con DATE OF EXAM: 11/25/2018 COMPARISON: None HISTORY: MALDONADO, Recent lumbar puncture with blood patch CT DLP: 971.7 mGycm Automated exposure control for dose reduction was used. CONTRAST: CT scan of the lumbar is performed with IV Contrast, patient injected with 100 mL of Isovue [address] of the lumbar spine was performed. Bone and soft tissue window settings are submitted as well as coronal and sagittal reconstructions. FINDINGS: Lumbar vertebral bodies show preserved height and alignment. Disc spaces are maintained. No abnormal enhancement following contrast administration. No evident spinal stenosis or foraminal encroachment. No disc herniation. L1-L2: Normal disc space height. No disc herniation protrusion or central stenosis. No facet joint arthropathy. No evidence for foraminal encroachment. L2-L3: Normal disc space height. No disc herniation protrusion or central stenosis. No facet joint arthropathy. No evidence for foraminal encroachment. L3-L4: Normal disc space height. No disc herniation protrusion or central stenosis. No facet joint arthropathy. No evidence for foraminal encroachment. L4-L5: Normal disc space height. No disc herniation protrusion or central stenosis. No facet joint arthropathy. No evidence for foraminal encroachment. L5-S1: Normal disc space height. No disc herniation protrusion or central stenosis. No facet joint arthropathy. No evidence for foraminal encroachment. IMPRESSION: No paraspinal masses are identified. Lumbar segments are intact. Normal post contrast lumbar CT
[2018-11-25 21:46] VITALS: BP 126/79; PULSE 89; RESP 16
== END 2018-11-25 21:46 | disposition other institution (70) ==
LOC: EC 17:35
DX: G97.1 Other reaction to spinal and lumbar puncture (principal); M54.5 Low back pain; H53.8 Other visual disturbances; E05.01 Thyrotoxicosis with diffuse goiter with thyrotoxic crisis or storm; Z85.850 Personal history of malignant neoplasm of thyroid; Z87.891 Personal history of nicotine dependence; Z87.39 Personal history of other diseases of the musculoskeletal system and connective tissue; Z79.899 Other long term (current) drug therapy; Z91.040 Latex allergy status; Z88.1 Allergy status to other antibiotic agents; Z91.048 Other nonmedicinal substance allergy status; Z88.0 Allergy status to penicillin; Z98.890 Other specified postprocedural states
CPT/HCPCS: 99285; 96360; 96361 ×2; 36415; 80048; 85025; 84703; 72132; 70450; Q9967

== ENCOUNTER 2019-02-09 17:23 | Emergency (ER) | payer OTHER ==
[2019-02-09 17:28] VITALS: BP 132/89; PULSE 66; RESP 16; TEMP 98.9
[2019-02-09] MEDS ORDERED: predniSONE 50 MG TAB PO STA (17:40)
--- NOTE | 2019-02-09 17:45 | ED ---
Skin/Abscess/FB HPI - General Chief complaint: Skin/Abscess/Foreign Body Stated complaint: Rash Time Seen by Provider: 02/09/19 17:30 Source: patient, RN notes reviewed, old records reviewed Mode of arrival: ambulatory Limitations: no limitations - History of Present Illness Initial comments: Patient is a 23-year-old female presents returned today with pruritic rash over the dorsum of the forearms, and posterior knees. Patient reports that she has more pruritus while at night. Patient denies any associated tongue swelling, difficulty breathing. Patient states that she has no new exposures that she can be aware of Patient reports that she's been using Benadryl cream over the area. Patient states that she's had no fevers or chills. - Related Data Home Medications Medication Instructions Recorded Confirmed Methimazole [Tapazole] 20 mg PO QAM 09/08/18 11/25/18 Metoprolol Tartrate [Lopressor] 25 mg PO BID 09/08/18 11/25/18 Previous Rx's Medication Instructions Recorded Hydrocortisone Cream 1 applic TOPICAL TID #60 gm 02/09/19 [Hydrocortisone 1% Cream] predniSONE 20 mg PO BID #6 tab 02/09/19 Allergies Allergy/AdvReac Type Severity Reaction Status Date / Time latex Allergy Severe Anaphylaxis Verified 02/09/19 17:28 azithromycin [From Zithromax] Allergy Unknown Verified 02/09/19 17:28 Bleach (Sodium Hypochlorite) Allergy Unknown Verified 02/09/19 17:28 cephalexin [From Keflex] Allergy Unknown Verified 02/09/19 17:28 fluconazole Allergy Unknown Verified 02/09/19 17:28 nystatin Allergy Unknown Verified 02/09/19 17:28 Penicillins Allergy Unknown Verified 02/09/19 17:28 Review of Systems ROS Statement: Those systems with pertinent positive or pertinent negative responses have been documented in the HPI. ROS Other: All systems not noted in ROS Statement are negative. Past Medical History Past Medical History: Cancer, Eye Disorder, Musculoskeletal Disorder, Seizure Disorder, Syncope, Thyroid Disorder Additional Past Medical History / Comment(s): SYNCOPE, HYPOTENSION, tachycardia, graves disease, current thyroid cancer - awaiting date to have thyroidectomy, scoliosis, bilateral pre-glaucoma, elevated liver enzymes. Hx thyroid storm, seizures (last seizure 1 yr ago), anemia, eclampsia, preeclampsia. History of Any Multi-Drug Resistant Organisms: None Reported Past Surgical History: Section, Cholecystectomy Additional Past Surgical History / Comment(s): section x 2. Past Anesthesia/Blood Transfusion Reactions: No Reported Reaction Past Psychological History: No Psychological Hx Reported Smoking Status: Former smoker Past Alcohol Use History: Occasional Past Drug Use History: Marijuana - Past Family History Father Family Medical History: No Reported History Mother Family Medical History: No Reported History General Exam - General Exam Comments Initial Comments: 23-year-old female. Alert and oriented. No distress. Limitations: no limitations Head exam: Present: atraumatic, normocephalic, normal inspection Eye exam: Present: normal appearance, PERRL, EOMI. Absent: scleral icterus, conjunctival injection, periorbital swelling ENT exam: Present: normal exam, mucous membranes moist Neck exam: Present: normal inspection. Absent: tenderness, meningismus, lymphadenopathy Respiratory exam: Present: normal lung sounds bilaterally. Absent: respiratory distress, wheezes, rales, rhonchi, stridor Cardiovascular Exam: Present: regular rate, normal rhythm, normal heart sounds. Absent: systolic murmur, diastolic murmur, rubs, gallop, clicks GI/Abdominal exam: Present: soft, normal bowel sounds. Absent: distended, tenderness, guarding, rebound, rigid Extremities exam: Present: normal inspection, full ROM, normal capillary refill. Absent: tenderness, pedal edema, joint swelling, calf tenderness Back exam: Present: normal inspection Neurological exam: Present: alert, oriented X3, CN II-XII intact Psychiatric exam: Present: normal affect, normal mood Skin exam: Present: warm, dry, intact, normal color, rash (Patient has been erythematous, papular rash over her dorsum of the forearms, and posterior knees. Patient is similar to either heat rash or contact dermatitis.) Course Vital Signs 02/09/19 17:26 Temperature 98.9 F Pulse Rate 66 Respiratory 16 Rate Blood Pressure 132/89 O2 Sat by Pulse 98 Oximetry Medical Decision Making - Medical Decision Making 23-year-old female since resource today for acute rash. Patient appears to have either contact dermatitis possibility of heat rash. Patient reports it seems to worsen at night and Patient has no fever or chills constitutional symptoms. This time Patient was started with steroids, and advised to steroid cream and Benadryl cream over the area to prevent itching. Discussed following up with primary care doctor. We'll discharge Patient with a dose of steroid in the ED and follow-up with PCP. Disposition Clinical Impression: Contact dermatitis Disposition: HOME SELF-CARE Condition: Good Instructions (If sedation given, give patient instructions): Contact Dermatitis (ED) Additional Instructions: Patient is advised to use the steroids, continue oral Benadryl for pruritus. Patient should follow-up with primary care doctor. If the area of redness swelling or rash worsens return for reevaluation. Prescriptions: Hydrocortisone Cream [Hydrocortisone 1% Cream] 1 applic TOPICAL TID #60 gm predniSONE 20 mg PO BID #6 tab Is patient prescribed a controlled substance at d/c from ED?: No Referrals: Agnes Coleman MD [Primary Care Provider] - 1-2 days Time of Disposition: 17:43
== END 2019-02-09 18:00 | disposition home or self-care (01) ==
LOC: EC 17:23
DX: L25.9 Unspecified contact dermatitis, unspecified cause (principal); C73 Malignant neoplasm of thyroid gland; E05.00 Thyrotoxicosis with diffuse goiter without thyrotoxic crisis or storm; Z87.891 Personal history of nicotine dependence; Z88.0 Allergy status to penicillin; Z88.1 Allergy status to other antibiotic agents; Z88.8 Allergy status to other drugs, medicaments and biological substances; Z91.040 Latex allergy status; Z91.048 Other nonmedicinal substance allergy status; Z79.899 Other long term (current) drug therapy
CPT/HCPCS: 99283; J7512

== ENCOUNTER 2019-02-15 08:43 | Emergency (ER) | payer OTHER ==
[2019-02-15] MEDS ORDERED: SODIUM CHLORIDE 0.9% 1,000 ML IV STA (09:45)
[2019-02-15 10:19] LABS: Basophils % (A) 1 %; Eosinophils # (A) 0.3 k/uL (0-0.7); Eosinophils % (A) 4 %; HCT 39.4 % (34.0-46.0); HGB 12.7 gm/dL (11.4-16.0); Lymphocytes # (A) 2.3 k/uL (1.0-4.8); Lymphocytes % (A) 33 %; MCH 29.2 pg (25.0-35.0); MCHC 32.3 g/dL (31.0-37.0); MCV 90.4 fL (80.0-100.0); Mean Platelet Volume 6.6; Monocytes # (A) 0.4 k/uL (0-1.0); Monocytes % (A) 6 %; Neutrophils # (A) 3.8 k/uL (1.3-7.7); Neutrophils % (A) 55 %; Platelet Count 273 k/uL (150-450); RBC 4.36 m/uL (3.80-5.40); RDW 13.7 % (11.5-15.5)
--- NOTE | 2019-02-15 10:22 | XR ---
EXAMINATION TYPE: XR soft tissue neck DATE OF EXAM: 02/15/2019 COMPARISON: Cervical spine x-ray from 2017 HISTORY: Difficulty breathing, history of recent thyroid removal. TECHNIQUE: 2 views of soft tissue neck are acquired. FINDINGS: No suspicious prevertebral soft tissue swelling on lateral view. There is soft tissue fulln ess filling the vallecula on current study new from prior. Airway appears patent without radiodense f oreign body. Some concentric narrowing of subglottic airway on frontal view is present. Cannot exclud e subglottic stenosis. On lateral view there is lucency or air anterior to the proximal esophagus at C7 level, not well localized on plain films. Finding could be product of recent surgery? Lung apices are clear. IMPRESSION: Not normal study as detailed above.
--- NOTE | 2019-02-15 10:38 | ED ---
General Adult HPI - General Chief complaint: ENT Stated complaint: post thyroid surgery-throat swelling Time Seen by Provider: 02/15/19 09:14 Source: patient, RN notes reviewed Mode of arrival: wheelchair Limitations: no limitations - History of Present Illness Initial comments: 23-year-old female presents to the emergency department for a chief complaint of possible throat swelling. Patient states that she had a thyroidectomy postop [address] Dye. States that she was told that she could not swallow at all so when she started to notice some swelling around the incision site today she became worried. States that she feels like she has swelling or nodules in her throat. States that it makes her nervous to swallow liquids but denies any difficulty breathing. Denies any fevers or chills. Patient also states she has left-sided facial tingling. No weakness. Patient did not contact Dr. Dye yet.Patient has no other complaints at this time including shortness of breath, chest pain, abdominal pain, nausea or vomiting, headache, or visual changes. - Related Data Home Medications Medication Instructions Recorded Confirmed Metoprolol Tartrate [Lopressor] 25 mg PO BID 09/08/18 02/15/19 Calcium Carbonate [Calcium] 600 mg PO BID 02/15/19 02/15/19 EPINEPHrine [Epipen 2-Sotero] 0.3 mg IM ONCE PRN 02/15/19 02/15/19 Hydrocodone/Acetaminophen [[place] 1 tab PO Q6H PRN 02/15/19 02/15/19 5-325] Levothyroxine Sodium [Synthroid] 125 mcg PO DAILY 02/15/19 02/15/19 levETIRAcetam [Keppra] 750 mg PO BID 02/15/19 02/15/19 Allergies Allergy/AdvReac Type Severity Reaction Status Date / Time latex Allergy Severe Anaphylaxis Verified 02/15/19 09:14 azithromycin [From Zithromax] Allergy Unknown Verified 02/15/19 09:14 Bleach (Sodium Hypochlorite) Allergy Unknown Verified 02/15/19 09:14 cephalexin [From Keflex] Allergy Unknown Verified 02/15/19 09:14 fluconazole Allergy Unknown Verified 02/15/19 09:14 nystatin Allergy Unknown Verified 02/15/19 09:14 Penicillins Allergy Unknown Verified 02/15/19 09:14 Review of Systems ROS Statement: Those systems with pertinent positive or pertinent negative responses have been documented in the HPI. ROS Other: All systems not noted in ROS Statement are negative. Past Medical History Past Medical History: Cancer, Eye Disorder, Musculoskeletal Disorder, Seizure Disorder, Syncope, Thyroid Disorder Additional Past Medical History / Comment(s): SYNCOPE, HYPOTENSION, tachycardia, graves disease, current thyroid cancer - awaiting date to have thyroidectomy, scoliosis, bilateral pre-glaucoma, elevated liver enzymes. Hx thyroid storm, seizures (last seizure 1 yr ago), anemia, eclampsia, preeclampsia. History of Any Multi-Drug Resistant Organisms: None Reported Past Surgical History: Section, Cholecystectomy Additional Past Surgical History / Comment(s): section x 2. Past Anesthesia/Blood Transfusion Reactions: No Reported Reaction Past Psychological History: No Psychological Hx Reported Smoking Status: Former smoker Past Alcohol Use History: Occasional Past Drug Use History: Marijuana - Past Family History Father Family Medical History: No Reported History Mother Family Medical History: No Reported History General Exam Limitations: no limitations General appearance: alert, in no apparent distress Head exam: Present: atraumatic, normocephalic, normal inspection Eye exam: Present: normal appearance, PERRL, EOMI. Absent: scleral icterus, conjunctival injection, periorbital swelling ENT exam: Present: normal exam, normal oropharynx, mucous membranes moist, TM's normal bilaterally, normal external ear exam, other (Patient has a well healing incision noted on the anterior cervical area. There is mild edema superior to this. No purulent discharge noted. No significant erythema.) Neck exam: Present: normal inspection, full ROM. Absent: tenderness, meningismus, lymphadenopathy Respiratory exam: Present: normal lung sounds bilaterally. Absent: respiratory distress, wheezes, rales, rhonchi, stridor Cardiovascular Exam: Present: regular rate, normal rhythm, normal heart sounds. Absent: bradycardia, tachycardia, irregular rhythm Neurological exam: Present: alert, oriented X3, CN II-XII intact Psychiatric exam: Present: normal affect, normal mood Course Vital Signs 02/15/19 02/15/19 02/15/19 08:46 10:43 12:21 Temperature 98.5 F 98.5 F Pulse Rate 58 L 63 77 Respiratory 16 16 18 Rate Blood Pressure 126/83 121/78 121/78 O2 Sat by Pulse 99 98 Oximetry Medical Decision Making - Medical Decision Making 23-year-old female presents to the emergency department for a chief complaint of throat swelling. Patient is postop day 2 from a total thyroidectomy due to unknown cancer. Patient states she has swelling on the outside of the neck which she was told would not happen. States she feels like there is a lump in her throat but does not have any difficulty breathing. States she was kind of afraid to swallow water but couldn't do it. On exam patient does have a well- appearing incision noted across the anterior cervical area. Mild edema present just superior to the incision. No purulent drainage or erythema suggestive of infection. CBC is unremarkable. CMP does show a calcium of 8.2 which is improved from patient's last calcium of 6 which she related results to me.. Does have some mild transaminitis which has been consistent in the past. Soft tissue x-ray of the neck showed no suspicious prevertebral soft tissue swelling. There is soft tissue fullness feeling the vallecula. Airway appears patent. There is some concentric narrowing of the subglottic airway on frontal view. Therefore CT was obtained of the neck which showed postop changes noted. Fluid density near density present in the thyroid bed as well as surrounding structures. No gross abnormality seen of the airway. Some groundglass opacity nodule present in the upper lobes. Did discuss these with patient. At this time findings likely secondary to postop changes. Patient is stable. No difficulty breathing. Vitals are stable. At this time patient can be discharged home to follow up with her surgeon. Did discuss calling today to schedule an appointment versus possible. Patient return if she has any worsening symptoms including difficulty swallowing or breathing. - Lab Data Result diagrams: 02/15/19 09:50 02/15/19 09:50 Lab Results 02/15/19 02/15/19 Range/Units 09:50 09:50 WBC 7.0 (3.8-10.6) k/uL RBC 4.36 (3.80-5.40) m/uL Hgb 12.7 (11.4-16.0) gm/dL Hct 39.4 (34.0-46.0) % MCV 90.4 (80.0-100.0) fL MCH 29.2 (25.0-35.0) pg MCHC 32.3 (31.0-37.0) g/dL RDW 13.7 (11.5-15.5) % Plt Count 273 (150-450) k/uL Neutrophils % 55 % Lymphocytes % 33 % Monocytes % 6 % Eosinophils % 4 % Basophils % 1 % Neutrophils # 3.8 (1.3-7.7) k/uL Lymphocytes # 2.3 (1.0-4.8) k/uL Monocytes # 0.4 (0-1.0) k/uL Eosinophils # 0.3 (0-0.7) k/uL Basophils # 0.0 (0-0.2) k/uL Sodium 142 (137-145) mmol/L Potassium 4.7 (3.5-5.1) mmol/L Chloride 109 H (98-107) mmol/L Carbon Dioxide 29 (22-30) mmol/L Anion Gap 4 mmol/L BUN 13 (7-17) mg/dL Creatinine 0.60 (0.52-1.04) mg/dL Est GFR (CKD-EPI)AfAm >90 (>60 ml/min/1.73 sqM) Est GFR (CKD-EPI)NonAf >90 (>60 ml/min/1.73 sqM) Glucose 84 (74-99) mg/dL Calcium 8.2 L (8.4-10.2) mg/dL Total Bilirubin 0.2 (0.2-1.3) mg/dL AST 41 H (14-36) U/L ALT 183 H (9-52) U/L Alkaline Phosphatase 121 (38-126) U/L Total Protein 5.5 L (6.3-8.2) g/dL Albumin 3.1 L (3.5-5.0) g/dL Disposition Clinical Impression: Post surgical complication Disposition: HOME SELF-CARE Condition: Good Instructions (If sedation given, give patient instructions): Total Thyroidectomy (DC) Additional Instructions: Please take your medications as directed. Follow up with her surgeon as soon as possible. If you have any worsening symptoms including inability to swallow or any difficulty breathing return here to the emergency department immediately. Is patient prescribed a controlled substance at d/c from ED?: No Referrals: Agnes Coleman MD [Primary Care Provider] - 1-2 days Time of Disposition: 13:35
[2019-02-15 10:42] LABS: ALT 183 U/L (9-52); AST 41 U/L (14-36); Albumin 3.1 g/dL (3.5-5.0); Alkaline Phosphatase 121 U/L (38-126); Anion Gap 4 mmol/L; Blood Urea Nitrogen 13 mg/dL (7-17); Calcium 8.2 mg/dL (8.4-10.2); Carbon Dioxide 29 mmol/L (22-30); Chloride 109 mmol/L (98-107); Glucose 84 mg/dL (74-99); Potassium 4.7 mmol/L (3.5-5.1); Sodium 142 mmol/L (137-145); Total Bilirubin 0.2 mg/dL (0.2-1.3); Total Protein 5.5 g/dL (6.3-8.2)
[2019-02-15] MEDS ORDERED: levETIRAcetam ORAL SOLN 500 MG/5 ML CUP PO STA (11:27)
[2019-02-15 12:22] VITALS: RESP 18
[2019-02-15] MEDS ORDERED: diphenhydrAMINE 50 MG/ML 1 ML VIAL IVP STA (12:24)
--- NOTE | 2019-02-15 12:48 | CT ---
EXAMINATION TYPE: CT soft tissue neck w con DATE OF EXAM: 02/15/2019 12:22 PM COMPARISON: Soft tissue neck same date HISTORY: Neck pain, throat swelling. [address] DLP: 316.5 mGycm Automated exposure control for dose reduction was used. CONTRAST: CT scan of the neck is performed following with IV Contrast, patient injected with 100 mL of Isovue 3 00. Axial images are obtained, coronal and sagittal reformatted images are reviewed. FINDINGS: Postop changes are noted status post thyroidectomy, there is fluid density and air density present in the thyroid bed as well as about the proximal clavicles, superior mediastinum and along th e sternocleidomastoid muscles and carotid arteries, internal jugular veins and prevertebral soft tiss ues Airway: No gross abnormality seen. There are some groundglass opacity nodules present in the upper lo bes which are subcentimeter in size. Parotid/submandibular glands: No gross abnormality seen. Carotid/Vascular Structures: Patent Osseous Structures: Intact IMPRESSION: Findings may be postoperative, correlate to exclude infection..
[2019-02-15 13:37] VITALS: TEMP 98.3
[2019-02-15 14:09] VITALS: BP 144/90; PULSE 68
== END 2019-02-15 14:16 | disposition home or self-care (01) ==
LOC: EC 08:43
DX: T81.89XA Other complications of procedures, not elsewhere classified, initial encounter (principal); R22.1 Localized swelling, mass and lump, neck; R74.0 Nonspecific elevation of levels of transaminase and lactic acid dehydrogenase [LDH]; E07.9 Disorder of thyroid, unspecified; G40.909 Epilepsy, unspecified, not intractable, without status epilepticus; Z79.890 Hormone replacement therapy; Z79.899 Other long term (current) drug therapy; Z88.1 Allergy status to other antibiotic agents; Z88.0 Allergy status to penicillin; Z88.8 Allergy status to other drugs, medicaments and biological substances; Z91.040 Latex allergy status; Z88.3 Allergy status to other anti-infective agents; Z87.891 Personal history of nicotine dependence; Z85.850 Personal history of malignant neoplasm of thyroid; Z90.89 Acquired absence of other organs
CPT/HCPCS: 36415; 80053; 85025; 83970; 70360; 70491; 99284; 96374; 96361 ×2; J1200; Q9967

== ENCOUNTER 2019-09-10 04:04 | Emergency (ER) | payer OTHER ==
[2019-09-10 04:13] VITALS: TEMP 98.1
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
[2019-09-10 05:45] VITALS: BP 115/79; PULSE 61; RESP 17
== END 2019-09-10 05:45 | disposition home or self-care (01) ==
LOC: EC 04:04
DX: S09.90XA Unspecified injury of head, initial encounter (principal); R55 Syncope and collapse; G40.909 Epilepsy, unspecified, not intractable, without status epilepticus; F17.200 Nicotine dependence, unspecified, uncomplicated; E05.00 Thyrotoxicosis with diffuse goiter without thyrotoxic crisis or storm; Y92.410 Unspecified street and highway as the place of occurrence of the external cause; Z79.890 Hormone replacement therapy; Z79.899 Other long term (current) drug therapy; Z88.1 Allergy status to other antibiotic agents; Z88.8 Allergy status to other drugs, medicaments and biological substances; Z88.0 Allergy status to penicillin; Z88.3 Allergy status to other anti-infective agents; Z91.040 Latex allergy status; Z85.850 Personal history of malignant neoplasm of thyroid; V49.50XA Passenger injured in collision with unspecified motor vehicles in traffic accident, initial encounter; Y92.415 Exit ramp or entrance ramp of street or highway as the place of occurrence of the external cause
CPT/HCPCS: 70450; 99284